=== PATIENT | male | born 1950 | race Caucasian/White ===

== ENCOUNTER 2018-12-18 20:59 | Inpatient (IN) | payer OTHER ==
[2018-12-18 20:59] VITALS: BMI 30.9
[2018-12-18] MEDS ORDERED: Sodium Chloride 0.9% 1,000 ML IV ONE ×2 (21:24→22:44)
--- NOTE | 2018-12-18 21:24 | C.PDOC ---
History Of Present Illness Patient presents with abdominal pain for the past 3 weeks which worsened today. He reports some radiating of the pain to the back but denies dysuria, fever or chills. Has not had a bm for about 5 days, but in am he had a large bm, brown in color and no noticeable blood Time Seen by Provider: 12/18/18 21:24 Chief Complaint (Nursing): Abdominal Pain History Per: Patient History/Exam Limitations: no limitations Onset/Duration Of Symptoms: Days (3 weeks) Current Symptoms Are (Timing): Worse Severity: Moderate Pain Scale Rating Of: 7 Location Of Pain/Discomfort: Diffuse Radiation Of Pain To:: Back Quality Of Discomfort: Unable To Describe Associated Symptoms: Constipation. denies: Fever, Chills, Other (Dysuria) Exacerbating Factors: None Alleviating Factors: None Last Bowel Movement: Today Recent travel outside of the [place]: No Additional History Per: Patient Past Medical History Reviewed: Historical Data, Nursing Documentation, Vital Signs Vital Signs: Last Vital Signs Temp 97.5 F L 12/18/18 21:04 Pulse 102 H 12/18/18 21:04 Resp 16 12/18/18 21:04 BP 148/85 12/18/18 21:04 Pulse Ox 97 12/18/18 21:04 - Medical History PMH: Diabetes, HTN, Hypercholesterolemia, Hypothyroidism Surgical History: Denies: Pacemaker Family History: States: No Known Family Hx - Social History Hx Alcohol Use: No Hx Substance Use: No - Immunization History Hx Tetanus Toxoid Vaccination: No Hx Influenza Vaccination: Yes Hx Pneumococcal Vaccination: No Review Of Systems Constitutional: Negative for: Fever, Chills Cardiovascular: Negative for: Chest Pain, Palpitations Respiratory: Negative for: Cough, Shortness of Breath Gastrointestinal: Positive for: Abdominal Pain. Negative for: Nausea, Vomiting Genitourinary: Negative for: Dysuria Skin: Negative for: Rash Neurological: Negative for: Weakness, Numbness Psych: Negative for: Anxiety Physical Exam - Physical Exam Appears: Non-toxic, Other (in moderate discomfort) Skin: Warm, Dry Head: Normacephalic Eye(s): bilateral: Normal Inspection Oral Mucosa: Moist Neck: Trachea Midline, Supple Chest: Symmetrical, No Tenderness Cardiovascular: Rhythm Regular Respiratory: No Rales, No Rhonchi, No Wheezing Gastrointestinal/Abdominal: Bowel Sounds (tympanic to percussion), Soft, Tenderness (Diffuse), Distention, No Guarding, No Rebound Back: No CVA Tenderness Extremity: Normal ROM Extremity: Bilateral: Atraumatic Pulses: Left Dorsalis Pedis: Normal, Right Dorsalis Pedis: Normal Neurological/Psych: Oriented x3 Gait: Steady ED Course And Treatment - Laboratory Results Result Diagrams: 12/18/18 21:51 12/18/18 21:51 ECG: Interpreted By Me, Viewed By Me ECG Rhythm: Sinus Rhythm (93), R BBB, Nonspecific Changes (inf wall mi) O2 Sat by Pulse Oximetry: 97 (Room air) Pulse Ox Interpretation: Normal Progress Note: EKG, blood work, and urinalysis ordered. IV fluids, toradol, and zofran administered. Disposition Discussed With Dr.: Tristan Williamson Comment: accepted the pt on his service and took over the care at 1:58 AM Doctor Will See Patient In The: Hospital Counseled Patient/Family Regarding: Studies Performed, Diagnosis - Disposition Disposition: HOSPITALIZED Disposition Time: 21:24 Condition: GUARDED Forms: [employer] (Yoruba) - POA Present On Arrival: Poor Glycemic Control - Clinical Impression Clinical Impression: Abdominal pain, Acute pancreatitis, Cholecystitis - Scribe Statement The provider has reviewed the documentation as recorded by the Scribe Long Bonilla All medical record entries made by the Scribe were at my direction and personally dictated by me. I have reviewed the chart and agree that the record accurately reflects my personal performance of the history, physical exam, medical decision making, and the department course for this patient. I have also personally directed, reviewed, and agree with the discharge instructions and disposition. Decision To Admit - Pt Status Changed To: Hospital Disposition Of: Inpatient - Admit Certification Admit to Inpatient:: After my assessment, the patient will require hospitalization for at least two midnights. This is because of the severity of symptoms shown, intensity of services needed, and/or the medical risk in this patient being treated as an outpatient. - InPatient: Physician Admission Certification:: After my assessment, the patient will require hospitalization for at least two midnights. This is because of the severity of symptoms shown, intensity of services needed, and/or the medical risk in this patient being treated as an outpatient. - . Bed Request Type: Regular Admitting Physician: Tristan Williamson Patient Diagnosis: Abdominal pain, Acute pancreatitis, Cholecystitis
[2018-12-18] MEDS ORDERED: Sodium Chloride 0.9% 1,000 ML ONE ×2 (21:32→23:27)
[2018-12-18 22:07] LABS: PROTHROMBIN TIME 13.1 SECONDS (9.7-12.2)
[2018-12-18 22:08] LABS: INR 1.2
[2018-12-18 22:22] LABS: BASO # 0.1 K/uL (0.0-0.2); BASO % 0.5 % (0.0-2.0); BLOOD UREA NITROGEN 13 mg/dL (9-20); EOS # 0.1 K/uL (0.0-0.7); EOS % 0.5 % (0.0-4.0); GFR NON-AFRICAN AMERICAN > 60; LYMPH # 0.8 K/uL (1.0-4.3); LYMPH % 5.1 % (20.0-40.0); MEAN CORPUSCULAR HEMOGLOBIN 15.6 pg (27.0-31.0); MEAN CORPUSCULAR HGB CONC 27.9 g/dL (33.0-37.0); MEAN PLATELET VOLUME 8.5 fL (7.2-11.7); MONO # 0.7 K/uL (0.0-0.8); MONO % 4.4 % (0.0-10.0); NEUT # 13.5 K/uL (1.8-7.0); NEUT % 89.5 % (50.0-75.0); NRBC % 0.1 % (0.0-2.0); RBC 4.48 Mil/uL (4.40-5.90); RED CELL DISTRIBUTION WIDTH 20.9 % (11.5-14.5)
[2018-12-18 22:23] LABS: ALB/GLOB RATIO 1.1 (1.0-2.1); ALBUMIN 3.6 g/dL (3.5-5.0); ALT/SGPT 201 U/L (21-72); AST/SGOT 284 U/L (17-59); CALCIUM 8.4 mg/dl (8.6-10.4); MEAN CELL VOLUME 55.8 fL (80.0-94.0); PLATELET COUNT 748 K/uL (130-400); WHITE BLOOD COUNT 15.1 K/uL (4.8-10.8)
[2018-12-18 22:38] LABS: URINE BILIRUBIN 1+ (NEGATIVE); URINE BLOOD NEGATIVE (NEGATIVE); URINE CLARITY Clear (Clear); URINE COLOR Amber (YELLOW); URINE GLUCOSE (UA) NORMAL (Normal); URINE LEUKOCYTE ESTERASE NEG Leu/uL (Negative); URINE PROTEIN 1+ mg/dL (NEGATIVE)
[2018-12-18 22:46] LABS: LIPASE 13720 U/L (23-300)
[2018-12-18 22:53] LABS: ANISOCYTOSIS MODERATE; EOSINOPHIL 1 % (0-4); LYMPHOCYTE 2 % (20-40); MONOCYTE 2 % (0-10); NEUTROPHIL 95 % (50-75); PLATELET ESTIMATE INCREASED (NORMAL); TOTAL CELLS COUNTED 100
[2018-12-18 22:54] LABS: HYPOCHROMIC MODERATE; MICROCYTOSIS MODERATE; OVALOCYTES SLIGHT; POLYCHROMIC SLIGHT
[2018-12-18] MEDS ORDERED: Piperacillin/Tazobact 3.375 gm 100 ML IVPB STA (23:51)
[2018-12-19] MEDS ORDERED: Piperacillin/Tazobact 3.375 gm 100 ML IVPB ONE (00:17)
[2018-12-19] MEDS: HYDROmorphone 0.5 mg/0.5 ml ISec IVP PRN ×2 (03:10→18:10)
[2018-12-19] MEDS: Lactated Ringer's 1,000 ML IV SCH ×2 (03:12→18:18)
[2018-12-19] MEDS: Piperacill/Tazo 3.375gm in Dex 3.375 GM/50 ML BAG IVPB SCH ×4 (06:03→23:55)
--- NOTE | 2018-12-19 07:54 | CP.PCM.PN ---
Subjective - Date & Time of Evaluation Date of Evaluation: 12/19/18 Time of Evaluation: 10:13 - Subjective Subjective: This patient is a 68 year old male with a PMHx of HLD, Diabetes, Diverticulosis, Hemorrhoids, GI Bleed, AVM, and hypothyroidism who presented to the E.R with complaints of 07/25 "punch-like" abdominal pain x 3 weeks which became unbeara ble yesterday. Patient denies using any modalities to treat the pain. CT scan of the Abdomen on admission showed cholecystitis and pancreatitis. Patient was then admitted for evaluation and treatment of cholecystitis and pancreatitis. Surgery and GI were consulted. Patient admitted to constipation for 3 weeks and finally had a bowel movement yesterday. He admitted to slight blood in the stool. ROS POSITIVES: Abdominal Pain, Constipation, Blood in Stool. NEGATIVES: Fever, chills, chest pain, SOB, headache, nausea, vomiting, diarrhea, urinary symptoms. PMHx: HLD, Diabetes, Diverticulosis, Hemorrhoids, GI Bleed, AVM, hypothyroidism PSHx: Colonoscopy (2014), Unspecified Head Surgery (I believe sutures of scalp laceration post fall) Allergies: NKDA SocialHx: denies tobacco. States he drinks 5 Heinek[employer] once a week, denies illi cit drug use. Retired (From [employer] employee) Hos: Denies FamHx: Mother/Brother - Alzhemiers Meds: per DEC. Objective - Vital Signs/Intake and Output Vital Signs (last 24 hours): Temp Pulse Resp BP Pulse Ox 98.7 F 93 H 20 121/70 95 12/19/18 07:40 12/19/18 07:40 12/19/18 07:40 12/19/18 07:40 12/19/18 07:40 Intake and Output: 12/19/18 12/19/18 06:59 18:59 Intake Total 800 Output Total 200 Balance 600 - Medications Medications: Current Medications Hydromorphone HCl (Dilaudid) 0.5 mg IVP Q3H PRN PRN Reason: Pain, moderate (4-7) Last Admin: 12/19/18 03:10 Dose: 0.5 mg Lactated Ringer's (Lactated Ringer's) 1,000 mls @ 200 mls/hr IV .Q5H KEVIN Last Admin: 12/19/18 03:12 Dose: 200 mls/hr Piperacillin Sod/Tazobactam Sod (Zosyn 3.375 Gm Iv Premix) 3.375 gm in 50 mls @ 100 mls/hr IVPB Q6H [facility]; Protocol Last Admin: 12/19/18 06:03 Dose: 100 mls/hr Ondansetron HCl (Zofran Inj) 4 mg IVP Q4H PRN PRN Reason: Nausea/Vomiting - Labs Labs: 12/18/18 21:51 12/18/18 21:51 PT 13.1 SECONDS (9.7-12.2) H 12/18/18 21:51 INR 1.2 12/18/18 21:51 APTT 33 SECONDS (21-34) 12/18/18 21:51 - Constitutional Appears: Well, Non-toxic, No Acute Distress - Head Exam Head Exam: ATRAUMATIC, NORMAL INSPECTION, NORMOCEPHALIC - Eye Exam Eye Exam: EOMI, Normal appearance. absent: Scleral icterus - ENT Exam ENT Exam: Mucous Membranes Dry - Neck Exam Neck Exam: absent: Lymphadenopathy - Respiratory Exam Respiratory Exam: Clear to Ausculation Bilateral. absent: Accessory Muscle Use Additional comments: Nasal [place]. - Cardiovascular Exam Cardiovascular Exam: RRR, +S1, +S2. absent: JVD - GI/Abdominal Exam GI & Abdominal Exam: Distended, Guarding, Tenderness (RUQ, Epigastric, Periumblical. Can't assess napier's sign due to pain. ), Hypoactive Bowel Sounds. absent: Mass, Rebound - Rectal Exam Rectal Exam: Hemorrhoids, NORMAL INSPECTION. absent: Black Stool, Bloody Stool Additional comments: +Tenderness during digital insertion, no palpable masses, Good rectal tone - Extremities Exam Extremities Exam: Normal Inspection. absent: Pedal Edema - Neurological Exam Neurological Exam: Alert, Awake, Oriented x3 - Skin Skin Exam: Dry, Intact, Normal Color, Warm Assessment and Plan - Assessment and Plan (Free Text) Assessment: 68 year old male with a PMHx of HLD, Diabetes, Diverticulosis, Hemorrhoids, and hypothyroidism admitted for evaluation and treatment of gallstone pancreatitis and acute cholecystitis. Plan: Gallstone Pancreatitis. Abd/Pelvis CT (Admission): shows pancreatitis and cholecystitis. PENDING Official Read. Abdomen US (Admission): Free Fluid in Liver, Fatty Liver, GB Stones and Sludge, Slightly dilated hepatic ducts, dilated CBD, Normal Kidneys/Spleen. Limited view of pancreas. PENDING Official Read. Lipase - 99492 on Admission, LFT's Elevated. Consults: GI (Dr. Mccann) | Surgery (Dr. Chaudhry) Lipid Panel: Ordered & PENDING Mgmt: NPO | LR @ 200 mls/hr Dilauded 0.5mg Q3H IVP Acute Cholecystitis Abd/Pelvis CT (Admission): shows pancreatitis and cholecystitis. PENDING Official Read. Abdomen US (Admission): Free Fluid in Liver, Fatty Liver, GB Stones and Sludge, Slightly dilated hepatic ducts, dilated CBD, Normal Kidneys/Spleen. Limited view of pancreas. PENDING Official Read. LFT's Elevated. Consults: Surgery (Dr. Chaudhry) MRCP of Abdomen Ordered to R/O Choledocholithiasis. Cannot be done until 24hours post CT scan due to the contrast. Mgmt: NPO | LR @ 200 mls/hr Zosyn 3.375 IVP Q6H Dilauded 0.5mg Q3H IVP Zofran PRN Iron Def. Anemia. Likely Iron Deficiency. HgB - 7.0 on Admission Has had GI Bleed in the past. Colonscopy (07/27/15) showed polyps and AVM in Ascending Colon which was treated. Anemia Workup SHows Low Iron and Elevated Haptoglobin. | Stool Occult Blood #1 - NEGATIVE. Monitor Mgmt: 2 Units of PRBC's ordered Ferrlicet 125mg IV Daily. Blood in Stool Likely 2/2 to Hemorrhoids. Stool Occult Blood NEGATIVE Will cont. to monitor HgB. Thrombocytosis Likely Reactive Thrombocytosis 2/2 to Iron Def. Anemia vs Cholecystitis Will Cont. to Monitor. Diabetes Hold Home Meds until patient is not NPO Will start ISS once patient is not NPO Hypothyroidism Mgmt: Home Synthroid 75mcg HLD Mgmt: Crestor 5 HS Proph VTE proph Contraindicated SCD's Protonix IV Daily Patient discussed with Attending (Dr. Oj Williamson) Milagros Agosto, PGY-2
--- NOTE | 2018-12-19 08:18 | CP.PCM.CON ---
<HolguinBrenda hanks - Last Filed: 12/19/18 08:15> History of Present Illness - History of Present Illness History of Present Illness: General Surgery- Dr Chaudhry 68yo M w/ hx of DM, HTN, HL, presenting with diffuse abdominal pain x several days. Pt states the pain began almost a week ago but has become progressively worse in the past 24hours. He describes it as severe diffuse abdominal pain, slightly more in the upper abdomen and radiating to the back. Pt states he has never had pain like this before. Nothing seemed to make the pain better or worse. He admits to poor appetite d/t the pain. He denies any associated nausea/vomiting/fevers/chills/sob/chest pains. PMH: DM, HTN, HL PSH: Denies NKDA Labs in the ED showed pt to have leukocytosis at 15.1, elevated lipase at 13,000 and elevated TBili at 2.1. Pt underwent CT abdomen/pelvis which showed both cholecystitis and pancreatitis. Surgery was consulted. Review of Systems - Review of Systems All systems: reviewed and no additional remarkable complaints except (as per HPI) Past Patient History - Infectious Disease Hx of Infectious Diseases: None - Past Medical History & Family History Past Medical History?: Yes - Past Social History Smoking Status: Never Smoked - CARDIAC Hx Hypercholesterolemia: Yes Hx Hypertension: Yes Hx Pacemaker: No - NEUROLOGICAL Hx Paralysis: No Other/Comment: HX TBI - ENDOCRINE/METABOLIC Hx Hypothyroidism: Yes - HEMATOLOGICAL/ONCOLOGICAL Hx Blood Transfusions: Yes Hx Blood Transfusion Reaction: No - MUSCULOSKELETAL/RHEUMATOLOGICAL Hx Musculoskeletal Disorders: No Hx Back Pain: Yes Hx Falls: Yes - PSYCHIATRIC Hx Substance Use: No - SURGICAL HISTORY Hx Surgeries: Yes Other/Comment: brain surgery - ANESTHESIA Hx Anesthesia: Yes Hx Anesthesia Reactions: No Hx Malignant Hyperthermia: No Meds Allergies/Adverse Reactions: Allergies Allergy/AdvReac Type Severity Reaction Status Date / Time No Known Allergies Allergy Verified 12/18/18 21:13 - Medications Medications: Current Medications Cyanocobalamin (Vitamin B12 1000 Mcg Tab) 1,000 mcg PO DAILY [facility]EVIN Ergocalciferol (Drisdol 50,000 Intl Units Cap) 1 cap PO QWK [facility]EVIN Hydromorphone HCl (Dilaudid) 0.5 mg IVP Q3H PRN PRN Reason: Pain, moderate (4-7) Last Admin: 12/19/18 03:10 Dose: 0.5 mg Lactated Ringer's (Lactated Ringer's) 1,000 mls @ 200 mls/hr IV .Q5H [facility] Last Admin: 12/19/18 03:12 Dose: 200 mls/hr Piperacillin Sod/Tazobactam Sod (Zosyn 3.375 Gm Iv Premix) 3.375 gm in 50 mls @ 100 mls/hr IVPB Q6H [facility]EVIN; Protocol Last Admin: 12/19/18 06:03 Dose: 100 mls/hr Levothyroxine Sodium (Synthroid) 75 mcg PO DAILY@0630 [facility] Ondansetron HCl (Zofran Inj) 4 mg IVP Q4H PRN PRN Reason: Nausea/Vomiting Rosuvastatin Calcium (Crestor) 5 mg PO HS KEVIN Physical Exam - Constitutional Appears: Well, No Acute Distress, Younger Than Stated Age - Head Exam Head Exam: ATRAUMATIC, NORMAL INSPECTION, NORMOCEPHALIC - Eye Exam Eye Exam: EOMI, Normal appearance - Respiratory Exam Respiratory Exam: NORMAL BREATHING PATTERN. absent: Respiratory Distress - Cardiovascular Exam Cardiovascular Exam: REGULAR RHYTHM - GI/Abdominal Exam GI & Abdominal Exam: Guarding, Rebound, Soft, Tenderness. absent: Distended, Firm Additional comments: exquisitely tender - Neurological Exam Neurological exam: Alert, Oriented x3 - Psychiatric Exam Psychiatric exam: Normal Affect, Normal Mood - Skin Skin Exam: Dry, Intact Results - Vital Signs Recent Vital Signs: Last Vital Signs Temp 98.7 F 12/19/18 07:40 Pulse 93 H 12/19/18 07:40 Resp 20 12/19/18 07:40 BP 121/70 12/19/18 07:40 Pulse Ox 95 12/19/18 07:40 - Labs Result Diagrams: 12/18/18 21:51 12/18/18 21:51 Labs: Laboratory Results - last 24 hr 12/18/18 12/18/18 12/18/18 21:51 21:51 21:51 WBC 15.1 H D RBC 4.48 Hgb 7.0 L D Hct 25.0 L MCV 55.8 L D MCH 15.6 L MCHC 27.9 L RDW 20.9 H Plt Count 748 H D MPV 8.5 Neut % (Auto) 89.5 H Lymph % (Auto) 5.1 L [place] % (Auto) 4.4 Eos % (Auto) 0.5 Baso % (Auto) 0.5 Neut # (Auto) 13.5 H Lymph # (Auto) 0.8 L [place] # (Auto) 0.7 Eos # (Auto) 0.1 Baso # (Auto) 0.1 Neutrophils % (Manual) 95 H Lymphocytes % (Manual) 2 L Monocytes % (Manual) 2 Eosinophils % (Manual) 1 Platelet Estimate Increased H Polychromasia Slight Hypochromasia (manual) Moderate Anisocytosis (manual) Moderate Microcytosis (manual) Moderate Ovalocytes Slight PT 13.1 H INR 1.2 APTT 33 Sodium 139 Potassium 4.1 Chloride 101 Carbon Dioxide 25 Anion Gap 17 BUN 13 Creatinine 0.6 L Est GFR ( Amer) > 60 Est GFR (Non-Af Amer) > 60 POC Glucose (mg/dL) Random Glucose 211 H Calcium 8.4 L Total Bilirubin 2.1 H AST 284 H ALT 201 H D Alkaline Phosphatase 377 H Total Protein 6.9 Albumin 3.6 Globulin 3.3 Albumin/Globulin Ratio 1.1 Lipase 30694 H Urine Color Urine Clarity Urine pH Ur Specific [place] Urine Protein Urine Glucose (UA) Urine Ketones Urine Blood Urine Nitrate Urine Bilirubin Urine Urobilinogen Ur Leukocyte Esterase Urine WBC (Auto) Urine RBC (Auto) Alcohol, Quantitative Blood Type Antibody Screen 12/18/18 12/18/18 12/18/18 22:23 22:28 23:39 WBC RBC Hgb Hct MCV MCH MCHC RDW Plt Count MPV Neut % (Auto) Lymph % (Auto) [place] % (Auto) Eos % (Auto) Baso % (Auto) Neut # (Auto) Lymph # (Auto) [place] # (Auto) Eos # (Auto) Baso # (Auto) Neutrophils % (Manual) Lymphocytes % (Manual) Monocytes % (Manual) Eosinophils % (Manual) Platelet Estimate Polychromasia Hypochromasia (manual) Anisocytosis (manual) Microcytosis (manual) Ovalocytes PT INR APTT Sodium Potassium Chloride Carbon Dioxide Anion Gap BUN Creatinine Est GFR ( Amer) Est GFR (Non-Af Amer) POC Glucose (mg/dL) Random Glucose Calcium Total Bilirubin AST ALT Alkaline Phosphatase Total Protein Albumin Globulin Albumin/Globulin Ratio Lipase Urine Color [place] Urine Clarity Clear Urine pH 5.0 Ur Specific [place] 1.017 Urine Protein 1+ H Urine Glucose (UA) Normal Urine Ketones Negative Urine Blood Negative Urine Nitrate Negative Urine Bilirubin 1+ H Urine Urobilinogen 4.0 Ur Leukocyte Esterase Neg Urine WBC (Auto) 4 Urine RBC (Auto) 1 Alcohol, Quantitative < 10 Blood Type A POSITIVE Antibody Screen Negative 12/19/18 07:51 WBC RBC Hgb Hct MCV MCH MCHC RDW Plt Count MPV Neut % (Auto) Lymph % (Auto) [place] % (Auto) Eos % (Auto) Baso % (Auto) Neut # (Auto) Lymph # (Auto) [place] # (Auto) Eos # (Auto) Baso # (Auto) Neutrophils % (Manual) Lymphocytes % (Manual) Monocytes % (Manual) Eosinophils % (Manual) Platelet Estimate Polychromasia Hypochromasia (manual) Anisocytosis (manual) Microcytosis (manual) Ovalocytes PT INR APTT Sodium Potassium Chloride Carbon Dioxide Anion Gap BUN Creatinine Est GFR ( Amer) Est GFR (Non-Af Amer) POC Glucose (mg/dL) 120 H Random Glucose Calcium Total Bilirubin AST ALT Alkaline Phosphatase Total Protein Albumin Globulin Albumin/Globulin Ratio Lipase Urine Color Urine Clarity Urine pH Ur Specific [place] Urine Protein Urine Glucose (UA) Urine Ketones Urine Blood Urine Nitrate Urine Bilirubin Urine Urobilinogen Ur Leukocyte Esterase Urine WBC (Auto) Urine RBC (Auto) Alcohol, Quantitative Blood Type Antibody Screen - Imaging and Cardiology CT scan - abdomen Status: Image reviewed by me, Report reviewed by me Assessment & Plan - Assessment and Plan (Free Text) Assessment: 68 yo M w/ acute pancreatitis and cholecystitis, likely gallstone pancreatitis -Maintain NPO for now -IVF @ 200/hr -IV Abx for cholecystitis - Zosyn -Pain control prn -Anti-emetics prn -Abdominal U/S to assess for stones and CBD DW Dr Isidoro Holguin PGY4 <Mark Chaudhyr - Last Filed: 12/23/18 20:38> Meds - Medications Medications: Current Medications Cyanocobalamin (Vitamin B12 1000 Mcg Tab) 1,000 mcg PO DAILY [facility] Last Admin: 12/23/18 09:56 Dose: 1,000 mcg Ergocalciferol (Drisdol 50,000 Intl Units Cap) 1 cap PO QWK [facility] Last Admin: 12/19/18 09:52 Dose: 1 cap Ferric Sodium Gluconate Complex (Ferrlecit) 125 mg IVPB DAILY [facility] Stop: 12/28/18 10:01 Last Admin: 12/23/18 09:56 Dose: 125 mg Hydromorphone HCl (Dilaudid) 0.5 mg IVP Q3H PRN PRN Reason: Pain, moderate (4-7) Last Admin: 12/23/18 10:04 Dose: 0.5 mg Piperacillin Sod/Tazobactam Sod (Zosyn 3.375 Gm Iv Premix) 3.375 gm in 50 mls @ 100 mls/hr IVPB Q6H [facility]; Protocol Last Admin: 12/23/18 17:46 Dose: 100 mls/hr Lactated Ringer's (Lactated Ringer's) 1,000 mls @ 150 mls/hr IV .Q6H40M [facility] Last Admin: 12/23/18 14:31 Dose: Not Given Levothyroxine Sodium (Synthroid) 75 mcg PO DAILY@0630 [facility] Last Admin: 12/23/18 06:38 Dose: 75 mcg Ondansetron HCl (Zofran Inj) 4 mg IVP Q4H PRN PRN Reason: Nausea/Vomiting Pantoprazole Sodium (Protonix Inj) 40 mg IVP DAILY [facility] Last Admin: 12/23/18 09:55 Dose: 40 mg Rosuvastatin Calcium (Crestor) 5 mg PO HS [facility] Last Admin: 12/19/18 21:50 Dose: Not Given Results - Vital Signs Recent Vital Signs: Last Vital Signs Temp 97.4 F L 12/23/18 16:00 Pulse 78 12/23/18 16:00 Resp 20 12/23/18 16:00 BP 137/79 12/23/18 16:00 Pulse Ox 94 L 12/23/18 16:00 - Labs Result Diagrams: 12/23/18 07:11 12/23/18 07:11 Labs: Laboratory Results - last 24 hr 12/22/18 12/23/18 12/23/18 21:21 06:25 07:03 WBC RBC Hgb Hct MCV MCH MCHC RDW Plt Count MPV Neut % (Auto) Lymph % (Auto) [place] % (Auto) Eos % (Auto) Baso % (Auto) Neut # (Auto) Lymph # (Auto) [place] # (Auto) Eos # (Auto) Baso # (Auto) Sodium Potassium Chloride Carbon Dioxide Anion Gap BUN Creatinine Est GFR ( Amer) Est GFR (Non-Af Amer) POC Glucose (mg/dL) 161 H 139 H Random Glucose Calcium Total Bilirubin AST ALT Alkaline Phosphatase Total Protein Albumin Globulin Albumin/Globulin Ratio Amylase Lipase Blood Type A POSITIVE Antibody Screen Negative 12/23/18 12/23/18 12/23/18 07:11 07:11 11:44 WBC 10.1 RBC 5.16 Hgb 9.5 L Hct 32.4 L MCV 62.8 L MCH 18.4 L MCHC 29.3 L RDW 29.4 H Plt Count 479 H MPV 8.5 Neut % (Auto) 78.0 H Lymph % (Auto) 11.0 L [place] % (Auto) 5.0 Eos % (Auto) 6.0 H Baso % (Auto) 0.0 Neut # (Auto) 7.8 H Lymph # (Auto) 1.1 [place] # (Auto) 0.5 Eos # (Auto) 0.6 Baso # (Auto) 0.0 Sodium 137 Potassium 4.7 Chloride 103 Carbon Dioxide 30 Anion Gap 10 BUN 3 L Creatinine 0.7 L Est GFR ( Amer) > 60 Est GFR (Non-Af Amer) > 60 POC Glucose (mg/dL) 215 H Random Glucose 129 H D Calcium 8.6 Total Bilirubin 3.0 H AST 125 H D ALT 96 H Alkaline Phosphatase 444 H D Total Protein 6.6 Albumin 3.3 L Globulin 3.3 Albumin/Globulin Ratio 1.0 Amylase 585 H D Lipase 9048 H Blood Type Antibody Screen 12/23/18 16:28 WBC RBC Hgb Hct MCV MCH MCHC RDW Plt Count MPV Neut % (Auto) Lymph % (Auto) [place] % (Auto) Eos % (Auto) Baso % (Auto) Neut # (Auto) Lymph # (Auto) [place] # (Auto) Eos # (Auto) Baso # (Auto) Sodium Potassium Chloride Carbon Dioxide Anion Gap BUN Creatinine Est GFR ( Amer) Est GFR (Non-Af Amer) POC Glucose (mg/dL) 138 H Random Glucose Calcium Total Bilirubin AST ALT Alkaline Phosphatase Total Protein Albumin Globulin Albumin/Globulin Ratio Amylase Lipase Blood Type Antibody Screen Attending/Attestation - Attestation I have personally seen and examined this patient.: Yes I have fully participated in the care of the patient.: Yes I have reviewed all pertinent clinical information: Yes Notes (Text): Pt was seen and examine at bedside Agree with above note and assessment Pt with abdominal pain and distention Abdomen: Soft, Tender diffusely, Mild distention. Labs and Radiology reviewed Ass: GS Pancreatitis with severe abdominal Pain Plan : GI consult IV antibiotics IV morphine NPO, IVF Repeat labs in am Plan d.w pt in detail Risk and benefit explained in detail.
[2018-12-19] MEDS: Levothyroxine 75 MCG TAB PO SCH (09:52)
[2018-12-19] MEDS: Ergocalciferol 50,000 Intl Units Cap PO SCH (09:52)
--- NOTE | 2018-12-19 11:37 | CP.PCM.CON ---
<Agustin Alcazar - Last Filed: 12/19/18 11:38> History of Present Illness - History of Present Illness History of Present Illness: PGY6 GI Fellow Consult Note Patient is a 68yo male with PMHx significant for dyslipidemia, diabetes who presented to the ED with abdominal pain. Pain began approximately 3 weeks ago and was cramping in nature at that time. He attributed pain to ongoing constipation which lasted for >1 week with intermittent passage of small amounts of stool. In the last 3-4 days, pain intensified and was located mainly in the epigastrium and RUQ. He did not take any medication to alleviate symptoms and noted that oral intake seemed to worsen symptoms. Admits to decreased appetite over the last week. Denies any nausea, vomiting, weight loss, diarrhea, hematochezia, melena. 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) FHx: Discussed with patient and denies any significant family history Social: Denies tobacco, EtOH or illicit drug use Endo: 07/2015 - Colonoscopy - AVM ascending colon s/p APC, diverticulosis, descending colon tubular adenoma, internal hemorrhoids Past Patient History - Infectious Disease Hx of Infectious Diseases: None - Past Medical History & Family History Past Medical History?: Yes - Past Social History Smoking Status: Never Smoked - CARDIAC Hx Hypercholesterolemia: Yes Hx Hypertension: Yes Hx Pacemaker: No - NEUROLOGICAL Hx Paralysis: No Other/Comment: HX TBI - ENDOCRINE/METABOLIC Hx Hypothyroidism: Yes - HEMATOLOGICAL/ONCOLOGICAL Hx Blood Transfusions: Yes Hx Blood Transfusion Reaction: No - MUSCULOSKELETAL/RHEUMATOLOGICAL Hx Musculoskeletal Disorders: No Hx Back Pain: Yes Hx Falls: Yes - PSYCHIATRIC Hx Substance Use: No - SURGICAL HISTORY Hx Surgeries: Yes Other/Comment: brain surgery - ANESTHESIA Hx Anesthesia: Yes Hx Anesthesia Reactions: No Hx Malignant Hyperthermia: No Meds Allergies/Adverse Reactions: Allergies Allergy/AdvReac Type Severity Reaction Status Date / Time No Known Allergies Allergy Verified 12/18/18 21:13 - Medications Medications: Current Medications Cyanocobalamin (Vitamin B12 1000 Mcg Tab) 1,000 mcg PO DAILY [facility] Last Admin: 12/19/18 09:57 Dose: 1,000 mcg Ergocalciferol (Drisdol 50,000 Intl Units Cap) 1 cap PO QWK KEVIN Last Admin: 12/19/18 09:52 Dose: 1 cap Hydromorphone HCl (Dilaudid) 0.5 mg IVP Q3H PRN PRN Reason: Pain, moderate (4-7) Last Admin: 12/19/18 03:10 Dose: 0.5 mg Lactated Ringer's (Lactated Ringer's) 1,000 mls @ 200 mls/hr IV .Q5H KEVIN Last Admin: 12/19/18 03:12 Dose: 200 mls/hr Piperacillin Sod/Tazobactam Sod (Zosyn 3.375 Gm Iv Premix) 3.375 gm in 50 mls @ 100 mls/hr IVPB Q6H KEVIN; Protocol Last Admin: 12/19/18 06:03 Dose: 100 mls/hr Levothyroxine Sodium (Synthroid) 75 mcg PO DAILY@0630 [facility]EVIN Last Admin: 12/19/18 09:52 Dose: 75 mcg Ondansetron HCl (Zofran Inj) 4 mg IVP Q4H PRN PRN Reason: Nausea/Vomiting Rosuvastatin Calcium (Crestor) 5 mg PO HS [facility] Physical Exam - Constitutional Appears: Non-toxic, No Acute Distress - Eye Exam Eye Exam: EOMI, PERRL - ENT Exam ENT Exam: Mucous Membranes Moist - Respiratory Exam Respiratory Exam: Clear to Auscultation Bilateral. absent: Rales, Rhonchi, Wheezes - Cardiovascular Exam Cardiovascular Exam: RRR, +S1, +S2 - GI/Abdominal Exam GI & Abdominal Exam: Distended, Normal Bowel Sounds, Soft, Tenderness (diffusely, worst in RUQ). absent: Firm, Guarding, Hernia, Mass, Organomegaly, Rigid - Extremities Exam Extremities exam: Positive for: normal inspection. Negative for: pedal edema - Neurological Exam Neurological exam: Alert, Oriented x3 - Psychiatric Exam Psychiatric exam: Normal Affect, Normal Mood - Skin Skin Exam: Dry, Warm Results - Vital Signs Recent Vital Signs: Last Vital Signs Temp 98.7 F 12/19/18 07:40 Pulse 93 H 12/19/18 07:40 Resp 20 12/19/18 07:40 BP 121/70 12/19/18 07:40 Pulse Ox 95 12/19/18 07:40 - Labs Result Diagrams: 12/18/18 21:51 12/18/18 21:51 Labs: Laboratory Results - last 24 hr 12/18/18 12/18/18 12/18/18 21:51 21:51 21:51 WBC 15.1 H D RBC 4.48 Hgb 7.0 L D Hct 25.0 L MCV 55.8 L D MCH 15.6 L MCHC 27.9 L RDW 20.9 H Plt Count 748 H D MPV 8.5 Neut % (Auto) 89.5 H Lymph % (Auto) 5.1 L [place] % (Auto) 4.4 Eos % (Auto) 0.5 Baso % (Auto) 0.5 Neut # (Auto) 13.5 H Lymph # (Auto) 0.8 L [place] # (Auto) 0.7 Eos # (Auto) 0.1 Baso # (Auto) 0.1 Neutrophils % (Manual) 95 H Lymphocytes % (Manual) 2 L Monocytes % (Manual) 2 Eosinophils % (Manual) 1 Platelet Estimate Increased H Polychromasia Slight Hypochromasia (manual) Moderate Anisocytosis (manual) Moderate Microcytosis (manual) Moderate Ovalocytes Slight PT 13.1 H INR 1.2 APTT 33 Sodium 139 Potassium 4.1 Chloride 101 Carbon Dioxide 25 Anion Gap 17 BUN 13 Creatinine 0.6 L Est GFR ( Amer) > 60 Est GFR (Non-Af Amer) > 60 POC Glucose (mg/dL) Random Glucose 211 H Calcium 8.4 L Total Bilirubin 2.1 H AST 284 H ALT 201 H D Alkaline Phosphatase 377 H Total Protein 6.9 Albumin 3.6 Globulin 3.3 Albumin/Globulin Ratio 1.1 Lipase 44623 H Urine Color Urine Clarity Urine pH Ur Specific [place] Urine Protein Urine Glucose (UA) Urine Ketones Urine Blood Urine Nitrate Urine Bilirubin Urine Urobilinogen Ur Leukocyte Esterase Urine WBC (Auto) Urine RBC (Auto) Alcohol, Quantitative Blood Type Blood Type Confirm Antibody Screen 12/18/18 12/18/18 12/18/18 22:23 22:28 23:39 WBC RBC Hgb Hct MCV MCH MCHC RDW Plt Count MPV Neut % (Auto) Lymph % (Auto) [place] % (Auto) Eos % (Auto) Baso % (Auto) Neut # (Auto) Lymph # (Auto) [place] # (Auto) Eos # (Auto) Baso # (Auto) Neutrophils % (Manual) Lymphocytes % (Manual) Monocytes % (Manual) Eosinophils % (Manual) Platelet Estimate Polychromasia Hypochromasia (manual) Anisocytosis (manual) Microcytosis (manual) Ovalocytes PT INR APTT Sodium Potassium Chloride Carbon Dioxide Anion Gap BUN Creatinine Est GFR ( Amer) Est GFR (Non-Af Amer) POC Glucose (mg/dL) Random Glucose Calcium Total Bilirubin AST ALT Alkaline Phosphatase Total Protein Albumin Globulin Albumin/Globulin Ratio Lipase Urine Color [place] Urine Clarity Clear Urine pH 5.0 Ur Specific [place] 1.017 Urine Protein 1+ H Urine Glucose (UA) Normal Urine Ketones Negative Urine Blood Negative Urine Nitrate Negative Urine Bilirubin 1+ H Urine Urobilinogen 4.0 Ur Leukocyte Esterase Neg Urine WBC (Auto) 4 Urine RBC (Auto) 1 Alcohol, Quantitative < 10 Blood Type A POSITIVE Blood Type Confirm A POSITIVE Antibody Screen Negative 12/19/18 12/19/18 07:51 10:53 WBC RBC Hgb Hct MCV MCH MCHC RDW Plt Count MPV Neut % (Auto) Lymph % (Auto) [place] % (Auto) Eos % (Auto) Baso % (Auto) Neut # (Auto) Lymph # (Auto) [place] # (Auto) Eos # (Auto) Baso # (Auto) Neutrophils % (Manual) Lymphocytes % (Manual) Monocytes % (Manual) Eosinophils % (Manual) Platelet Estimate Polychromasia Hypochromasia (manual) Anisocytosis (manual) Microcytosis (manual) Ovalocytes PT INR APTT Sodium Potassium Chloride Carbon Dioxide Anion Gap BUN Creatinine Est GFR ( Amer) Est GFR (Non-Af Amer) POC Glucose (mg/dL) 120 H 127 H Random Glucose Calcium Total Bilirubin AST ALT Alkaline Phosphatase Total Protein Albumin Globulin Albumin/Globulin Ratio Lipase Urine Color Urine Clarity Urine pH Ur Specific [place] Urine Protein Urine Glucose (UA) Urine Ketones Urine Blood Urine Nitrate Urine Bilirubin Urine Urobilinogen Ur Leukocyte Esterase Urine WBC (Auto) Urine RBC (Auto) Alcohol, Quantitative Blood Type Blood Type Confirm Antibody Screen Assessment & Plan - Assessment and Plan (Free Text) Assessment: Patient is a 68yo male with PMHx significant for dyslipidemia, diabetes who presented to the ED with abdominal pain -Acute cholecystitis -Acute gallstone pancreatitis -Cholelithiasis, R/O choledocolithiasis -Microcytic anemia -Constipation Plan: -IVF with LR@150-200cc/hr -OK with liquid diet once pain improves and patient can tolerate PO -U/S and CT reviewed - awaiting formal interpretation - appears to have gallstones, pericholecystic fluid, peripancreatic stranding -MRCP ordered by surgical team - R/O choledocolithiasis -Check direct bilirubin -If present, will benefit from ERCP -Patient would benefit from cholecystectomy, surgical team following -Agree with empiric zosyn -Microcytic anemia noted - no overt bleeding per patient or noted since admission; iron studies ordered -Given change in bowel habits, microcytic anemia and history of AVM; consider EGD/Colonoscopy once medically optimized, likely as outpatient following resolution of acute events; no evidence for mass lesions on cross-sectional imaging - Date & Time Date: 12/19/18 Time: 10:45 <Hoang Mccann - Last Filed: 12/19/18 12:26> Meds - Medications Medications: Current Medications Cyanocobalamin (Vitamin B12 1000 Mcg Tab) 1,000 mcg PO DAILY [facility] Last Admin: 12/19/18 09:57 Dose: 1,000 mcg Ergocalciferol (Drisdol 50,000 Intl Units Cap) 1 cap PO QWK [facility] Last Admin: 12/19/18 09:52 Dose: 1 cap Hydromorphone HCl (Dilaudid) 0.5 mg IVP Q3H PRN PRN Reason: Pain, moderate (4-7) Last Admin: 12/19/18 03:10 Dose: 0.5 mg Lactated Ringer's (Lactated Ringer's) 1,000 mls @ 200 mls/hr IV .Q5H [facility] Last Admin: 12/19/18 03:12 Dose: 200 mls/hr Piperacillin Sod/Tazobactam Sod (Zosyn 3.375 Gm Iv Premix) 3.375 gm in 50 mls @ 100 mls/hr IVPB Q6H [facility]; Protocol Last Admin: 12/19/18 12:10 Dose: 100 mls/hr Levothyroxine Sodium (Synthroid) 75 mcg PO DAILY@0630 [facility] Last Admin: 12/19/18 09:52 Dose: 75 mcg Ondansetron HCl (Zofran Inj) 4 mg IVP Q4H PRN PRN Reason: Nausea/Vomiting Rosuvastatin Calcium (Crestor) 5 mg PO HS [facility] Results - Vital Signs Recent Vital Signs: Last Vital Signs Temp 98.7 F 12/19/18 07:40 Pulse 93 H 12/19/18 07:40 Resp 20 12/19/18 07:40 BP 121/70 12/19/18 07:40 Pulse Ox 95 12/19/18 07:40 - Labs Result Diagrams: 12/19/18 11:46 12/18/18 21:51 Labs: Laboratory Results - last 24 hr 12/18/18 12/18/18 12/18/18 21:51 21:51 21:51 WBC 15.1 H D RBC 4.48 Hgb 7.0 L D Hct 25.0 L MCV 55.8 L D MCH 15.6 L MCHC 27.9 L RDW 20.9 H Plt Count 748 H D MPV 8.5 Neut % (Auto) 89.5 H Lymph % (Auto) 5.1 L [place] % (Auto) 4.4 Eos % (Auto) 0.5 Baso % (Auto) 0.5 Neut # (Auto) 13.5 H Lymph # (Auto) 0.8 L [place] # (Auto) 0.7 Eos # (Auto) 0.1 Baso # (Auto) 0.1 Neutrophils % (Manual) 95 H Lymphocytes % (Manual) 2 L Monocytes % (Manual) 2 Eosinophils % (Manual) 1 Platelet Estimate Increased H Polychromasia Slight Hypochromasia (manual) Moderate Anisocytosis (manual) Moderate Microcytosis (manual) Moderate Ovalocytes Slight PT 13.1 H INR 1.2 APTT 33 Sodium 139 Potassium 4.1 Chloride 101 Carbon Dioxide 25 Anion Gap 17 BUN 13 Creatinine 0.6 L Est GFR ( Amer) > 60 Est GFR (Non-Af Amer) > 60 POC Glucose (mg/dL) Random Glucose 211 H Calcium 8.4 L Total Bilirubin 2.1 H AST 284 H ALT 201 H D Alkaline Phosphatase 377 H Total Protein 6.9 Albumin 3.6 Globulin 3.3 Albumin/Globulin Ratio 1.1 Lipase 34451 H Urine Color Urine Clarity Urine pH Ur Specific [place] Urine Protein Urine Glucose (UA) Urine Ketones Urine Blood Urine Nitrate Urine Bilirubin Urine Urobilinogen Ur Leukocyte Esterase Urine WBC (Auto) Urine RBC (Auto) Alcohol, Quantitative Blood Type Blood Type Confirm Antibody Screen 12/18/18 12/18/18 12/18/18 22:23 22:28 23:39 WBC RBC Hgb Hct MCV MCH MCHC RDW Plt Count MPV Neut % (Auto) Lymph % (Auto) [place] % (Auto) Eos % (Auto) Baso % (Auto) Neut # (Auto) Lymph # (Auto) [place] # (Auto) Eos # (Auto) Baso # (Auto) Neutrophils % (Manual) Lymphocytes % (Manual) Monocytes % (Manual) Eosinophils % (Manual) Platelet Estimate Polychromasia Hypochromasia (manual) Anisocytosis (manual) Microcytosis (manual) Ovalocytes PT INR APTT Sodium Potassium Chloride Carbon Dioxide Anion Gap BUN Creatinine Est GFR ( Amer) Est GFR (Non-Af Amer) POC Glucose (mg/dL) Random Glucose Calcium Total Bilirubin AST ALT Alkaline Phosphatase Total Protein Albumin Globulin Albumin/Globulin Ratio Lipase Urine Color [place] Urine Clarity Clear Urine pH 5.0 Ur Specific [place] 1.017 Urine Protein 1+ H Urine Glucose (UA) Normal Urine Ketones Negative Urine Blood Negative Urine Nitrate Negative Urine Bilirubin 1+ H Urine Urobilinogen 4.0 Ur Leukocyte Esterase Neg Urine WBC (Auto) 4 Urine RBC (Auto) 1 Alcohol, Quantitative < 10 Blood Type A POSITIVE Blood Type Confirm A POSITIVE Antibody Screen Negative 12/19/18 12/19/18 12/19/18 07:51 10:53 11:46 WBC 10.0 RBC 4.17 L Hgb 6.5 L* Hct 23.4 L MCV 56.1 L MCH 15.7 L MCHC 27.9 L RDW 21.1 H Plt Count 703 H MPV 6.6 L Neut % (Auto) 85.6 H Lymph % (Auto) 6.1 L [place] % (Auto) 4.1 Eos % (Auto) 3.3 Baso % (Auto) 0.9 Neut # (Auto) 8.5 H Lymph # (Auto) 0.6 L [place] # (Auto) 0.4 Eos # (Auto) 0.3 Baso # (Auto) 0.1 Neutrophils % (Manual) Lymphocytes % (Manual) Monocytes % (Manual) Eosinophils % (Manual) Platelet Estimate Polychromasia Hypochromasia (manual) Anisocytosis (manual) Microcytosis (manual) Ovalocytes PT INR APTT Sodium Potassium Chloride Carbon Dioxide Anion Gap BUN Creatinine Est GFR ( Amer) Est GFR (Non-Af Amer) POC Glucose (mg/dL) 120 H 127 H Random Glucose Calcium Total Bilirubin AST ALT Alkaline Phosphatase Total Protein Albumin Globulin Albumin/Globulin Ratio Lipase Urine Color Urine Clarity Urine pH Ur Specific [place] Urine Protein Urine Glucose (UA) Urine Ketones Urine Blood Urine Nitrate Urine Bilirubin Urine Urobilinogen Ur Leukocyte Esterase Urine WBC (Auto) Urine RBC (Auto) Alcohol, Quantitative Blood Type Blood Type Confirm Antibody Screen Attending/Attestation - Attestation I have personally seen and examined this patient.: Yes I have fully participated in the care of the patient.: Yes I have reviewed all pertinent clinical information: Yes Notes (Text): 12/19/18 12:21 I have seen and examined patient with GI fellow. Agree with above documentation with the following additions. In brief, this is a 68 year old male with history of DM, hyperlipidemia, traumatic brain injury, who presents to hospital with complaint of abdominal pain. He reports epigastric pain, 5/10 intensity which began 3 weeks ago and slowly became worse and now radiates to RUQ and back. He also reports chronic constipation but denies nausea, vomiting, fever/chills, weight loss, rectal bleeding. He had a colonoscopy in 2014 which showed diverti cuosis, adenomatous polyp, AVM, hemorrhoids. DM Hyperlipidemia TBI Abdominal pain Anemia Transaminitis, pancreatitis CT/US imaging reviewed by me showing dilated intra/extrahepatic tree, cholelithiasis, thickened GB wall, pancreatic head edema - NPO - Continue with IVF hydration therapy - Continue with antibiotic therapy - MRCP ordered by surgical team, follow up results - Fractionate bilirubin and continue to monitor LFTs - Obtain viral hepatitis panel - Obtain iron studies, continue to monitor H/H - Will continue to monitor patient clinical course
--- NOTE | 2018-12-19 11:51 | RAD ---
Date of service: 12/19/2018 HISTORY: SOB/Pre-Op COMPARISON: No prior. FINDINGS: LUNGS: There are low lung volumes. There is mild pulmonary venous congestion. No focal consolidation. PLEURA: No pleural effusions or pneumothorax. CARDIOVASCULAR: There is moderate cardiomegaly. There are aortic atherosclerotic calcifications present. OSSEOUS STRUCTURES: Within normal limits for the patient's age. VISUALIZED UPPER ABDOMEN: Normal. OTHER FINDINGS: None. IMPRESSION: No active pulmonary disease. Low lung volumes may be related to poor inspiratory effort.
[2018-12-19 12:01] LABS: BASO # 0.1 K/uL (0.0-0.2); BASO % 0.9 % (0.0-2.0); EOS # 0.3 K/uL (0.0-0.7); EOS % 3.3 % (0.0-4.0); LYMPH # 0.6 K/uL (1.0-4.3); LYMPH % 6.1 % (20.0-40.0); MEAN CELL VOLUME 56.1 fL (80.0-94.0); MEAN CORPUSCULAR HEMOGLOBIN 15.7 pg (27.0-31.0); MEAN CORPUSCULAR HGB CONC 27.9 g/dL (33.0-37.0); MEAN PLATELET VOLUME 6.6 fL (7.2-11.7); MONO # 0.4 K/uL (0.0-0.8); MONO % 4.1 % (0.0-10.0); NEUT # 8.5 K/uL (1.8-7.0); NEUT % 85.6 % (50.0-75.0); NRBC % 0.2 % (0.0-2.0); PLATELET COUNT 703 K/uL (130-400); RBC 4.17 Mil/uL (4.40-5.90); RED CELL DISTRIBUTION WIDTH 21.1 % (11.5-14.5)
[2018-12-19 12:05] LABS: HEMOGLOBIN 6.5 g/dL (12.0-18.0)
--- NOTE | 2018-12-19 12:10 | CT ---
Date of service: 12/19/2018 PROCEDURE: CT Abdomen and Pelvis with contrast HISTORY: diffuse abd pain COMPARISON: None available. TECHNIQUE: Contrast dose: 100 mL Omnipaque 350 Radiation dose: Total exam DLP = 1148.93 mGy-cm. This CT exam was performed using one or more of the following dose reduction techniques: Automated exposure control, adjustment of the mA and/or kV according to patient size, and/or use of iterative reconstruction technique. FINDINGS: LOWER THORAX: Bibasilar atelectasis/infiltrates. No visible pleural effusion or definite pneumothorax. Mild cardiomegaly. LIVER: Hypoattenuation of the liver compatible with hepatic steatosis. Borderline hepatomegaly. GALLBLADDER AND BILE DUCTS: Gallbladder wall thickening/pericholecystic edema. Gallbladder distension. No calcified gallstones appreciated. Mild wall prominence/enhancement of the biliary tree. PANCREAS: Suspect mild pancreatic edema. Mild mesenteric/peripancreatic edema and stranding. SPLEEN: 13 mm splenic hypodensity, anterior inferior spleen, indeterminate. Small perisplenic fluid. ADRENALS: Unremarkable. KIDNEYS AND URETERS: The kidneys enhance symmetrically. No hydronephrosis or obstructing calculus identified. VASCULATURE: No aortic aneurysm. Atherosclerotic calcifications of the aorta. BOWEL: Stomach is nondistended. Lack of oral contrast limits evaluation for bowel pathology. Bowel loops appear within normal limits of caliber without evidence of obstruction. APPENDIX: The appendix appears within normal limits of caliber. No secondary signs of acute appendicitis. PERITONEUM: No significant free fluid. No definite free air. LYMPH NODES: No bulky adenopathy identified. BLADDER: Unremarkable. REPRODUCTIVE: The prostate gland measures approximately 4.2 x 4.9 cm. BONES: Degenerative changes of the spine. OTHER FINDINGS: Bilateral fat containing inguinal hernias. IMPRESSION: Gallbladder wall thickening/pericholecystic edema. Gallbladder distension. No calcified gallstones appreciated. Mild wall prominence/enhancement of the biliary tree. Correlate clinically for acute cholecystitis and/or cholangitis versus reactive edema. Suspect pancreatic edema. Pancreatic/mesenteric edema noted. Correlate for acute pancreatitis including amylase and lipase levels. 13 mm splenic hypodensity, anterior inferior spleen, indeterminate. Small perisplenic fluid. Borderline hepatomegaly. Hepatic steatosis. Bibasilar atelectasis/infiltrates. Additional findings as above. Preliminary impression was provided by [employer].
[2018-12-19 12:31] LABS: IRON 14 ug/dL (49-181)
[2018-12-19 12:38] LABS: BILIRUBIN,DIRECT 1.2 mg/dL (0.0-0.4)
[2018-12-19 12:41] LABS: % IRON SATURATION 4 (20-55); TOTAL IRON BINDING CAPACITY 324 ug/dL (250-450)
[2018-12-19 12:44] LABS: ALBUMIN 3.3 g/dL (3.5-5.0); ALT/SGPT 262 U/L (21-72); AST/SGOT 297 U/L (17-59); BLOOD UREA NITROGEN 9 mg/dL (9-20); CALCIUM 8.2 mg/dl (8.6-10.4); GFR NON-AFRICAN AMERICAN > 60; HDL CHOLESTEROL 19 mg/dL (30-70)
[2018-12-19 12:56] LABS: LDL CHOLESTEROL 54 mg/dL (0-129)
--- NOTE | 2018-12-19 13:03 | US ---
Date of service: 12/19/2018 HISTORY: r/o choledocholithiasis, cholecystitis COMPARISON: None. TECHNIQUE: Sonographic evaluation of the abdomen. FINDINGS: LIVER: Measures 17.1 cm. Diffusely increased echogenicity of the liver parenchyma. Consistent with fatty infiltration. Smooth contour. No mass. No biliary ductal dilatation. GALLBLADDER: Cholelithiasis. Sludge. No significant mural thickening. No pericholecystic fluid. Negative sonographic Bower sign. COMMON BILE DUCT: Measures 7 mm. No stones. No dilatation. PANCREAS: Unremarkable as visualized. No mass. No ductal dilatation. RIGHT KIDNEY: Measures 11.6cm. Normal echogenicity. No calculus, mass, or hydronephrosis. LEFT KIDNEY: Measures 11.4cm. Normal echogenicity. No calculus, mass, or hydronephrosis. SPLEEN: Normal in size and contour. No mass. AORTA: No aneurysmal dilatation. IVC: Unremarkable. OTHER FINDINGS: None. IMPRESSION: Cholelithiasis. No clear sonographic evidence of cholecystitis. Fatty infiltration of the liver. Minimal dilatation of the common bile duct without associated intrahepatic biliary dilatation.
[2018-12-19 13:16] LABS: ANISOCYTOSIS MODERATE; BANDS 1 % (0-2); BASOPHIL 1 % (0-2); EOSINOPHIL 5 % (0-4); HYPOCHROMIC MODERATE; LYMPHOCYTE 6 % (20-40); MONOCYTE 3 % (0-10); NEUTROPHIL 84 % (50-75); OVALOCYTES MODERATE; PLATELET ESTIMATE INCREASED (NORMAL); POIKILOCYTOSIS SLIGHT; TOTAL CELLS COUNTED 100
[2018-12-19 13:17] LABS: MICROCYTOSIS MODERATE
[2018-12-19 13:21] LABS: FERRITIN 17.4 ng/mL
[2018-12-19 13:50] LABS: FOLATE 17.5 ng/mL
--- NOTE | 2018-12-19 18:55 | CP.PCM.HP ---
Past Patient History - Infectious Disease Hx of Infectious Diseases: None - Past Medical History & Family History Past Medical History?: Yes - Past Social History Smoking Status: Never Smoked - CARDIAC Hx Hypercholesterolemia: Yes Hx Hypertension: Yes Hx Pacemaker: No - NEUROLOGICAL Hx Paralysis: No Other/Comment: HX TBI - ENDOCRINE/METABOLIC Hx Hypothyroidism: Yes - HEMATOLOGICAL/ONCOLOGICAL Hx Blood Transfusions: Yes Hx Blood Transfusion Reaction: No - MUSCULOSKELETAL/RHEUMATOLOGICAL Hx Musculoskeletal Disorders: No Hx Back Pain: Yes Hx Falls: Yes - PSYCHIATRIC Hx Substance Use: No - SURGICAL HISTORY Hx Surgeries: Yes Other/Comment: brain surgery - ANESTHESIA Hx Anesthesia: Yes Hx Anesthesia Reactions: No Hx Malignant Hyperthermia: No Meds Allergies/Adverse Reactions: Allergies Allergy/AdvReac Type Severity Reaction Status Date / Time No Known Allergies Allergy Verified 12/18/18 21:13 Physical Exam - Constitutional Appears: Well - Head Exam Head Exam: ATRAUMATIC, NORMAL INSPECTION, NORMOCEPHALIC - Eye Exam Eye Exam: EOMI, Normal appearance, PERRL Pupil Exam: NORMAL ACCOMODATION, PERRL - ENT Exam ENT Exam: Mucous Membranes Moist, Normal Exam - Neck Exam Neck exam: Positive for: Normal Inspection - Respiratory Exam Respiratory Exam: Decreased Breath Sounds - Cardiovascular Exam Cardiovascular Exam: REGULAR RHYTHM, +S1, +S2 - GI/Abdominal Exam GI & Abdominal Exam: Diminished Bowel Sounds, Soft - Rectal Exam Rectal Exam: Deferred Results - Vital Signs Recent Vital Signs: Last Vital Signs Temp 99.4 F 12/19/18 17:19 Pulse 89 12/19/18 17:19 Resp 18 12/19/18 17:19 BP 116/69 12/19/18 17:19 Pulse Ox 96 12/19/18 16:00 - Labs Result Diagrams: 12/19/18 11:46 12/19/18 11:46 Labs: Laboratory Results - last 24 hr 12/18/18 12/18/18 12/18/18 21:51 21:51 21:51 WBC 15.1 H D RBC 4.48 Hgb 7.0 L D Hct 25.0 L MCV 55.8 L D MCH 15.6 L MCHC 27.9 L RDW 20.9 H Plt Count 748 H D MPV 8.5 Neut % (Auto) 89.5 H Lymph % (Auto) 5.1 L [place] % (Auto) 4.4 Eos % (Auto) 0.5 Baso % (Auto) 0.5 Neut # (Auto) 13.5 H Lymph # (Auto) 0.8 L [place] # (Auto) 0.7 Eos # (Auto) 0.1 Baso # (Auto) 0.1 Neutrophils % (Manual) 95 H Band Neutrophils % Lymphocytes % (Manual) 2 L Monocytes % (Manual) 2 Eosinophils % (Manual) 1 Basophils % (Manual) Platelet Estimate Increased H Polychromasia Slight Hypochromasia (manual) Moderate Poikilocytosis (manual Anisocytosis (manual) Moderate Microcytosis (manual) Moderate Ovalocytes Slight Haptoglobin PT 13.1 H INR 1.2 APTT 33 Sodium 139 Potassium 4.1 Chloride 101 Carbon Dioxide 25 Anion Gap 17 BUN 13 Creatinine 0.6 L Est GFR ( Amer) > 60 Est GFR (Non-Af Amer) > 60 POC Glucose (mg/dL) Random Glucose 211 H Calcium 8.4 L Phosphorus Magnesium Iron TIBC % Saturation Ferritin Total Bilirubin 2.1 H Direct Bilirubin AST 284 H ALT 201 H D Alkaline Phosphatase 377 H Total Protein 6.9 Albumin 3.6 Globulin 3.3 Albumin/Globulin Ratio 1.1 Triglycerides Cholesterol LDL Cholesterol Direct HDL Cholesterol Lipase 94231 H Vitamin B12 Folate Urine Color Urine Clarity Urine pH Ur Specific [place] Urine Protein Urine Glucose (UA) Urine Ketones Urine Blood Urine Nitrate Urine Bilirubin Urine Urobilinogen Ur Leukocyte Esterase Urine WBC (Auto) Urine RBC (Auto) Stool Occult Blood Alcohol, Quantitative Blood Type Blood Type Confirm Antibody Screen 12/18/18 12/18/18 12/18/18 22:23 22:28 23:39 WBC RBC Hgb Hct MCV MCH MCHC RDW Plt Count MPV Neut % (Auto) Lymph % (Auto) [place] % (Auto) Eos % (Auto) Baso % (Auto) Neut # (Auto) Lymph # (Auto) [place] # (Auto) Eos # (Auto) Baso # (Auto) Neutrophils % (Manual) Band Neutrophils % Lymphocytes % (Manual) Monocytes % (Manual) Eosinophils % (Manual) Basophils % (Manual) Platelet Estimate Polychromasia Hypochromasia (manual) Poikilocytosis (manual Anisocytosis (manual) Microcytosis (manual) Ovalocytes Haptoglobin PT INR APTT Sodium Potassium Chloride Carbon Dioxide Anion Gap BUN Creatinine Est GFR ( Amer) Est GFR (Non-Af Amer) POC Glucose (mg/dL) Random Glucose Calcium Phosphorus Magnesium Iron TIBC % Saturation Ferritin Total Bilirubin Direct Bilirubin AST ALT Alkaline Phosphatase Total Protein Albumin Globulin Albumin/Globulin Ratio Triglycerides Cholesterol LDL Cholesterol Direct HDL Cholesterol Lipase Vitamin B12 Folate Urine Color [place] Urine Clarity Clear Urine pH 5.0 Ur Specific [place] 1.017 Urine Protein 1+ H Urine Glucose (UA) Normal Urine Ketones Negative Urine Blood Negative Urine Nitrate Negative Urine Bilirubin 1+ H Urine Urobilinogen 4.0 Ur Leukocyte Esterase Neg Urine WBC (Auto) 4 Urine RBC (Auto) 1 Stool Occult Blood Alcohol, Quantitative < 10 Blood Type A POSITIVE Blood Type Confirm A POSITIVE Antibody Screen Negative 12/19/18 12/19/18 12/19/18 07:51 10:53 11:46 WBC 10.0 RBC 4.17 L Hgb 6.5 L* Hct 23.4 L MCV 56.1 L MCH 15.7 L MCHC 27.9 L RDW 21.1 H Plt Count 703 H MPV 6.6 L Neut % (Auto) 85.6 H Lymph % (Auto) 6.1 L [place] % (Auto) 4.1 Eos % (Auto) 3.3 Baso % (Auto) 0.9 Neut # (Auto) 8.5 H Lymph # (Auto) 0.6 L [place] # (Auto) 0.4 Eos # (Auto) 0.3 Baso # (Auto) 0.1 Neutrophils % (Manual) 84 H Band Neutrophils % 1 Lymphocytes % (Manual) 6 L Monocytes % (Manual) 3 Eosinophils % (Manual) 5 H Basophils % (Manual) 1 Platelet Estimate Increased H Polychromasia Hypochromasia (manual) Moderate Poikilocytosis (manual Slight Anisocytosis (manual) Moderate Microcytosis (manual) Moderate Ovalocytes Moderate Haptoglobin PT INR APTT Sodium Potassium Chloride Carbon Dioxide Anion Gap BUN Creatinine Est GFR ( Amer) Est GFR (Non-Af Amer) POC Glucose (mg/dL) 120 H 127 H Random Glucose Calcium Phosphorus Magnesium Iron TIBC % Saturation Ferritin Total Bilirubin Direct Bilirubin AST ALT Alkaline Phosphatase Total Protein Albumin Globulin Albumin/Globulin Ratio Triglycerides Cholesterol LDL Cholesterol Direct HDL Cholesterol Lipase Vitamin B12 Folate Urine Color Urine Clarity Urine pH Ur Specific [place] Urine Protein Urine Glucose (UA) Urine Ketones Urine Blood Urine Nitrate Urine Bilirubin Urine Urobilinogen Ur Leukocyte Esterase Urine WBC (Auto) Urine RBC (Auto) Stool Occult Blood Alcohol, Quantitative Blood Type Blood Type Confirm Antibody Screen 12/19/18 12/19/18 12/19/18 11:46 11:46 11:46 WBC RBC Hgb Hct MCV MCH MCHC RDW Plt Count MPV Neut % (Auto) Lymph % (Auto) [place] % (Auto) Eos % (Auto) Baso % (Auto) Neut # (Auto) Lymph # (Auto) [place] # (Auto) Eos # (Auto) Baso # (Auto) Neutrophils % (Manual) Band Neutrophils % Lymphocytes % (Manual) Monocytes % (Manual) Eosinophils % (Manual) Basophils % (Manual) Platelet Estimate Polychromasia Hypochromasia (manual) Poikilocytosis (manual Anisocytosis (manual) Microcytosis (manual) Ovalocytes Haptoglobin 249.3 H PT INR APTT Sodium 139 Potassium 3.7 Chloride 106 Carbon Dioxide 26 Anion Gap 11 BUN 9 Creatinine 0.7 L Est GFR ( Amer) > 60 Est GFR (Non-Af Amer) > 60 POC Glucose (mg/dL) Random Glucose 124 H D Calcium 8.2 L Phosphorus 3.4 Magnesium 1.9 Iron 14 L TIBC 324 % Saturation 4 L Ferritin Total Bilirubin 2.4 H Direct Bilirubin AST 297 H ALT 262 H D Alkaline Phosphatase 326 H Total Protein 6.4 Albumin 3.3 L Globulin 3.2 Albumin/Globulin Ratio 1.0 Triglycerides 79 D Cholesterol 75 LDL Cholesterol Direct 54 HDL Cholesterol 19 L Lipase Vitamin B12 Folate Urine Color Urine Clarity Urine pH Ur Specific [place] Urine Protein Urine Glucose (UA) Urine Ketones Urine Blood Urine Nitrate Urine Bilirubin Urine Urobilinogen Ur Leukocyte Esterase Urine WBC (Auto) Urine RBC (Auto) Stool Occult Blood Alcohol, Quantitative Blood Type Blood Type Confirm Antibody Screen 12/19/18 12/19/18 12/19/18 11:46 12:52 15:56 WBC RBC Hgb Hct MCV MCH MCHC RDW Plt Count MPV Neut % (Auto) Lymph % (Auto) [place] % (Auto) Eos % (Auto) Baso % (Auto) Neut # (Auto) Lymph # (Auto) [place] # (Auto) Eos # (Auto) Baso # (Auto) Neutrophils % (Manual) Band Neutrophils % Lymphocytes % (Manual) Monocytes % (Manual) Eosinophils % (Manual) Basophils % (Manual) Platelet Estimate Polychromasia Hypochromasia (manual) Poikilocytosis (manual Anisocytosis (manual) Microcytosis (manual) Ovalocytes Haptoglobin PT INR APTT Sodium Potassium Chloride Carbon Dioxide Anion Gap BUN Creatinine Est GFR ( Amer) Est GFR (Non-Af Amer) POC Glucose (mg/dL) 117 H Random Glucose Calcium Phosphorus Magnesium Iron TIBC % Saturation Ferritin 17.4 Total Bilirubin Direct Bilirubin 1.2 H AST ALT Alkaline Phosphatase Total Protein Albumin Globulin Albumin/Globulin Ratio Triglycerides Cholesterol LDL Cholesterol Direct HDL Cholesterol Lipase Vitamin B12 > 1000 H Folate 17.5 Urine Color Urine Clarity Urine pH Ur Specific [place] Urine Protein Urine Glucose (UA) Urine Ketones Urine Blood Urine Nitrate Urine Bilirubin Urine Urobilinogen Ur Leukocyte Esterase Urine WBC (Auto) Urine RBC (Auto) Stool Occult Blood Negative Alcohol, Quantitative Blood Type Blood Type Confirm Antibody Screen
[2018-12-20] MEDS: Lactated Ringer's 1,000 ML IV SCH ×6 (03:15→23:23)
[2018-12-20] MEDS: Piperacill/Tazo 3.375gm in Dex 3.375 GM/50 ML BAG IVPB SCH ×4 (05:28→22:31)
[2018-12-20] MEDS: Levothyroxine 75 MCG TAB PO SCH (05:32)
[2018-12-20 07:31] LABS: BASO # 0.1 K/uL (0.0-0.2); BASO % 1.2 % (0.0-2.0); EOS # 0.4 K/uL (0.0-0.7); EOS % 3.2 % (0.0-4.0); LYMPH # 0.8 K/uL (1.0-4.3); LYMPH % 6.3 % (20.0-40.0); MEAN CORPUSCULAR HEMOGLOBIN 18.5 pg (27.0-31.0); MEAN CORPUSCULAR HGB CONC 30.2 g/dL (33.0-37.0); MEAN PLATELET VOLUME 8.3 fL (7.2-11.7); MONO # 0.6 K/uL (0.0-0.8); MONO % 5.2 % (0.0-10.0); NEUT % 84.1 % (50.0-75.0); NRBC % 0.2 % (0.0-2.0); PLATELET COUNT 620 K/uL (130-400); RBC 4.69 Mil/uL (4.40-5.90); RED CELL DISTRIBUTION WIDTH 28.4 % (11.5-14.5); WHITE BLOOD COUNT 11.9 K/uL (4.8-10.8)
[2018-12-20 07:51] LABS: HEMOGLOBIN 8.7 g/dL (12.0-18.0); MEAN CELL VOLUME 61.2 fL (80.0-94.0)
[2018-12-20 07:54] LABS: ALBUMIN 3.2 g/dL (3.5-5.0); ALT/SGPT 218 U/L (21-72); AMYLASE 282 U/L (30-110); AST/SGOT 158 U/L (17-59); BLOOD UREA NITROGEN 9 mg/dL (9-20); CALCIUM 8.2 mg/dl (8.6-10.4); GFR NON-AFRICAN AMERICAN > 60; LIPASE 546 U/L (23-300)
--- NOTE | 2018-12-20 09:05 | CP.PCM.PN ---
<Michael Hart - Last Filed: 12/20/18 09:02> Subjective - Date & Time of Evaluation Date of Evaluation: 12/20/18 Time of Evaluation: 09:02 - Subjective Subjective: Surgery Progress note- Dr. Chaudhry Patient seen and examined at bedside. mid-epigastric pain improving. denies nausea, vomiting. Remains NPO. +flatus and BM. Denies fevers, chills, chest pain, shortness of breath Objective - Vital Signs/Intake and Output Vital Signs (last 24 hours): Temp Pulse Resp BP Pulse Ox 98.2 F 76 20 146/81 96 12/20/18 08:00 12/20/18 08:00 12/20/18 08:00 12/20/18 08:00 12/20/18 08:00 Intake and Output: 12/20/18 12/20/18 06:59 18:59 Intake Total 2495 Output Total 850 Balance 1645 - Medications Medications: Current Medications Cyanocobalamin (Vitamin B12 1000 Mcg Tab) 1,000 mcg PO DAILY [facility] Last Admin: 12/19/18 09:57 Dose: 1,000 mcg Ergocalciferol (Drisdol 50,000 Intl Units Cap) 1 cap PO QWK [facility] Last Admin: 12/19/18 09:52 Dose: 1 cap Ferric Sodium Gluconate Complex (Ferrlecit) 125 mg IVPB DAILY [facility] Stop: 12/28/18 10:01 Hydromorphone HCl (Dilaudid) 0.5 mg IVP Q3H PRN PRN Reason: Pain, moderate (4-7) Last Admin: 12/19/18 18:10 Dose: 0.5 mg Lactated Ringer's (Lactated Ringer's) 1,000 mls @ 200 mls/hr IV .Q5H [facility] Last Admin: 12/20/18 05:28 Dose: 200 mls/hr Piperacillin Sod/Tazobactam Sod (Zosyn 3.375 Gm Iv Premix) 3.375 gm in 50 mls @ 100 mls/hr IVPB Q6H [facility]; Protocol Last Admin: 12/20/18 05:28 Dose: 100 mls/hr Levothyroxine Sodium (Synthroid) 75 mcg PO DAILY@0630 [facility] Last Admin: 12/20/18 05:32 Dose: Not Given Ondansetron HCl (Zofran Inj) 4 mg IVP Q4H PRN PRN Reason: Nausea/Vomiting Pantoprazole Sodium (Protonix Inj) 40 mg IVP DAILY [facility] Rosuvastatin Calcium (Crestor) 5 mg PO HS [facility] Last Admin: 12/19/18 21:50 Dose: Not Given - Labs Labs: 12/20/18 07:12 12/20/18 07:12 PT 13.1 SECONDS (9.7-12.2) H 12/18/18 21:51 INR 1.2 12/18/18 21:51 APTT 33 SECONDS (21-34) 12/18/18 21:51 - Constitutional Appears: Non-toxic, No Acute Distress - Head Exam Head Exam: NORMAL INSPECTION - Eye Exam Eye Exam: EOMI, Scleral icterus - ENT Exam ENT Exam: Mucous Membranes Moist - Respiratory Exam Respiratory Exam: NORMAL BREATHING PATTERN. absent: Accessory Muscle Use, Respiratory Distress - Cardiovascular Exam Cardiovascular Exam: REGULAR RHYTHM. absent: Bradycardia, Tachycardia - GI/Abdominal Exam GI & Abdominal Exam: Distended (baseline distention), Soft, Tenderness (tender to palpation ). absent: Guarding, Rigid - Neurological Exam Neurological Exam: Alert, Awake, Oriented x3 - Psychiatric Exam Psychiatric exam: Normal Affect - Skin Skin Exam: Intact, Warm Assessment and Plan - Assessment and Plan (Free Text) Assessment: 68M w/ gallstone pancreatitis possible choledocholithiasis Plan: - pain control PRN - aggressive IVF hydration - f/u MRCP - c/s GI; all recs appreciated - c/w Abx - plan for Cholecystectomy this hospital visit - d/w Dr. Chaudhry surgical attending [facility] PGY2 <Mark Chaudhry B - Last Filed: 12/23/18 20:39> Objective - Vital Signs/Intake and Output Vital Signs (last 24 hours): Temp Pulse Resp BP Pulse Ox 97.4 F L 78 20 137/79 94 L 12/23/18 16:00 12/23/18 16:00 12/23/18 16:00 12/23/18 16:00 12/23/18 16:00 Intake and Output: 12/23/18 12/24/18 18:59 06:59 Intake Total 1700 Balance 1700 - Medications Medications: Current Medications Cyanocobalamin (Vitamin B12 1000 Mcg Tab) 1,000 mcg PO DAILY [facility] Last Admin: 12/23/18 09:56 Dose: 1,000 mcg Ergocalciferol (Drisdol 50,000 Intl Units Cap) 1 cap PO QWK [facility] Last Admin: 12/19/18 09:52 Dose: 1 cap Ferric Sodium Gluconate Complex (Ferrlecit) 125 mg IVPB DAILY [facility] Stop: 12/28/18 10:01 Last Admin: 12/23/18 09:56 Dose: 125 mg Hydromorphone HCl (Dilaudid) 0.5 mg IVP Q3H PRN PRN Reason: Pain, moderate (4-7) Last Admin: 12/23/18 10:04 Dose: 0.5 mg Piperacillin Sod/Tazobactam Sod (Zosyn 3.375 Gm Iv Premix) 3.375 gm in 50 mls @ 100 mls/hr IVPB Q6H [facility]; Protocol Last Admin: 12/23/18 17:46 Dose: 100 mls/hr Lactated Ringer's (Lactated Ringer's) 1,000 mls @ 150 mls/hr IV .Q6H40M [facility] Last Admin: 12/23/18 14:31 Dose: Not Given Levothyroxine Sodium (Synthroid) 75 mcg PO DAILY@0630 [facility] Last Admin: 12/23/18 06:38 Dose: 75 mcg Ondansetron HCl (Zofran Inj) 4 mg IVP Q4H PRN PRN Reason: Nausea/Vomiting Pantoprazole Sodium (Protonix Inj) 40 mg IVP DAILY [facility] Last Admin: 12/23/18 09:55 Dose: 40 mg Rosuvastatin Calcium (Crestor) 5 mg PO HS [facility] Last Admin: 12/19/18 21:50 Dose: Not Given - Labs Labs: 12/23/18 07:11 12/23/18 07:11 PT 13.1 SECONDS (9.7-12.2) H 12/18/18 21:51 INR 1.2 12/18/18 21:51 APTT 33 SECONDS (21-34) 12/18/18 21:51 Attending/Attestation - Attestation I have personally seen and examined this patient.: Yes I have fully participated in the care of the patient.: Yes I have reviewed all pertinent clinical information, including history, physical exam and plan: Yes Notes (Text): Pt was seen and examine at bedside Agree with above note and assessment Pt remains stable with minimal improvement Abdomen : severe tenderness c.w current mx NPO, IVF Plan d.w pt in detail
[2018-12-20] MEDS: Ferric Sodium Gluconat Complex 62.5 mg/5 ml Vial IVPB SCH (09:30)
--- NOTE | 2018-12-20 10:06 | CP.PCM.PN ---
Subjective - Date & Time of Evaluation Date of Evaluation: 12/20/18 Time of Evaluation: 10:02 - Subjective Subjective: Patient seen and examined, resting in bed comfortably. No acute events overnight. He continues to report severe epigastric and RUQ abdominal pain. He denies nausea, vomiting, fever/chills. Review of vitals from today are normal. 12 point review of systems performed, negative aside from mentioned above. Objective - Vital Signs/Intake and Output Vital Signs (last 24 hours): Temp Pulse Resp BP Pulse Ox 98.2 F 76 20 146/81 96 12/20/18 08:00 12/20/18 08:00 12/20/18 08:00 12/20/18 08:00 12/20/18 08:00 Intake and Output: 12/20/18 12/20/18 06:59 18:59 Intake Total 2495 Output Total 850 Balance 1645 - Medications Medications: Current Medications Cyanocobalamin (Vitamin B12 1000 Mcg Tab) 1,000 mcg PO DAILY [facility] Last Admin: 12/19/18 09:57 Dose: 1,000 mcg Ergocalciferol (Drisdol 50,000 Intl Units Cap) 1 cap PO QWK [facility] Last Admin: 12/19/18 09:52 Dose: 1 cap Ferric Sodium Gluconate Complex (Ferrlecit) 125 mg IVPB DAILY [facility] Stop: 12/28/18 10:01 Last Admin: 12/20/18 09:30 Dose: 125 mg Hydromorphone HCl (Dilaudid) 0.5 mg IVP Q3H PRN PRN Reason: Pain, moderate (4-7) Last Admin: 12/19/18 18:10 Dose: 0.5 mg Lactated Ringer's (Lactated Ringer's) 1,000 mls @ 200 mls/hr IV .Q5H [facility] Last Admin: 12/20/18 05:28 Dose: 200 mls/hr Piperacillin Sod/Tazobactam Sod (Zosyn 3.375 Gm Iv Premix) 3.375 gm in 50 mls @ 100 mls/hr IVPB Q6H [facility]; Protocol Last Admin: 12/20/18 05:28 Dose: 100 mls/hr Levothyroxine Sodium (Synthroid) 75 mcg PO DAILY@0630 [facility] Last Admin: 12/20/18 05:32 Dose: Not Given Ondansetron HCl (Zofran Inj) 4 mg IVP Q4H PRN PRN Reason: Nausea/Vomiting Pantoprazole Sodium (Protonix Inj) 40 mg IVP DAILY [facility] Last Admin: 12/20/18 09:31 Dose: 40 mg Rosuvastatin Calcium (Crestor) 5 mg PO HS [facility] Last Admin: 12/19/18 21:50 Dose: Not Given - Labs Labs: 12/20/18 07:12 12/20/18 07:12 PT 13.1 SECONDS (9.7-12.2) H 12/18/18 21:51 INR 1.2 12/18/18 21:51 APTT 33 SECONDS (21-34) 12/18/18 21:51 - Constitutional Appears: Non-toxic, No Acute Distress - Head Exam Head Exam: NORMAL INSPECTION - Eye Exam Eye Exam: EOMI, Normal appearance - ENT Exam ENT Exam: Mucous Membranes Moist - Respiratory Exam Respiratory Exam: Clear to Ausculation Bilateral - Cardiovascular Exam Cardiovascular Exam: +S1, +S2 - GI/Abdominal Exam GI & Abdominal Exam: Soft, Tenderness, Normal Bowel Sounds Additional comments: epigastric and RUQ tenderness to palpation, +guarding - Extremities Exam Extremities Exam: Normal Inspection - Skin Skin Exam: Dry, Intact, Normal Color, Warm Assessment and Plan - Assessment and Plan (Free Text) Assessment: DM TBI Anemia Transaminitis, acute gallstone pancreatitis US imaging shows normal caliber CBD, cholelithiasis Plan: - NPO - Continue with antibiotic therapy - Continue with IVF hydration, supportive care - MRCP ordered by surgical team, awaiting results - LFTs stable, continue to monitor - Follow up surgical recommendations regarding timing of cholecystectomy - Will continue to monitor patient clinical course
[2018-12-20 10:30] LABS: EOSINOPHIL 3 % (0-4); LYMPHOCYTE 4 % (20-40); MONOCYTE 6 % (0-10); NEUTROPHIL 87 % (50-75); TOTAL CELLS COUNTED 100
[2018-12-20 10:31] LABS: ANISOCYTOSIS MODERATE
[2018-12-20 10:32] LABS: MICROCYTOSIS MODERATE
[2018-12-20 10:33] LABS: HYPOCHROMIC MODERATE
[2018-12-20 10:35] LABS: TARGET CELLS SLIGHT
[2018-12-20 10:38] LABS: PLATELET ESTIMATE INCREASED (NORMAL)
[2018-12-20] MEDS: HYDROmorphone 0.5 mg/0.5 ml ISec IVP PRN (10:55)
--- NOTE | 2018-12-20 14:10 | MRI ---
MRCP Indication: r/o choledocholithiasis Technique: Multiplanar, multisequence MR images of the abdomen were obtained, including heavily T2 weighted MRCP images of the biliary system. Rotating maximum intensity projection images of the biliary system were generated. A total of 507 images were submitted for review. Comparison: CT abdomen and pelvis with IV contrast performed 12/19/18, abdominal ultrasound performed 12/19/18 Findings: Examination limited by motion. The liver appears grossly unremarkable on this noncontrast examination. Gallbladder distension. Gallbladder wall thickening. Gallbladder sludge and probable gallstones. There is no intrahepatic biliary ductal dilatation. The common bile duct appears within normal limits in caliber (measuring approximately 6 mm) and tapers distally. The pancreatic duct appears within normal limits of caliber. No definite focal filling defects are seen in the common bile duct or pancreatic duct. Indeterminate 9 mm anterior inferior spleen T2 hyperintense focus. The noncontrast included portions of the adrenal glands, kidneys, spleen, and pancreas appear otherwise unremarkable. No bulky abdominal lymphadenopathy is seen. No ascites. Small bilateral pleural effusions. Bibasilar atelectasis. Degenerative changes of the spine. Impression: No filling defects seen within the common bile duct which appears within normal limits of caliber. Gallbladder distension. Gallbladder wall thickening. Gallbladder sludge and probable gallstones. Correlate clinically. Indeterminate 9 mm anterior inferior spleen T2 hyperintense focus. Small bilateral pleural effusions. Bibasilar atelectasis.
--- NOTE | 2018-12-20 14:34 | CP.PCM.PN ---
"Subjective - Date & Time of Evaluation Date of Evaluation: 12/20/18 Time of Evaluation: 09:00 - Subjective Subjective: Patient seen and examined. No overnight events reported. Abdominal pain has improved. He denies any fever, chills, headache, chest pain, sob, nausea, vomiting, or changes in bowel habits. Objective - Vital Signs/Intake and Output Vital Signs (last 24 hours): Temp Pulse Resp BP Pulse Ox 98.2 F 76 20 146/81 96 12/20/18 08:00 12/20/18 08:00 12/20/18 08:00 12/20/18 08:00 12/20/18 08:00 Intake and Output: 12/20/18 12/20/18 06:59 18:59 Intake Total 2495 Output Total 850 Balance 1645 - Medications Medications: Current Medications Cyanocobalamin (Vitamin B12 1000 Mcg Tab) 1,000 mcg PO DAILY [facility] Last Admin: 12/20/18 10:18 Dose: Not Given Ergocalciferol (Drisdol 50,000 Intl Units Cap) 1 cap PO QWK [facility] Last Admin: 12/19/18 09:52 Dose: 1 cap Ferric Sodium Gluconate Complex (Ferrlecit) 125 mg IVPB DAILY [facility] Stop: 12/28/18 10:01 Last Admin: 12/20/18 09:30 Dose: 125 mg Hydromorphone HCl (Dilaudid) 0.5 mg IVP Q3H PRN PRN Reason: Pain, moderate (4-7) Last Admin: 12/20/18 10:55 Dose: 0.5 mg Lactated Ringer's (Lactated Ringer's) 1,000 mls @ 200 mls/hr IV .Q5H [facility] Last Admin: 12/20/18 13:36 Dose: 200 mls/hr Piperacillin Sod/Tazobactam Sod (Zosyn 3.375 Gm Iv Premix) 3.375 gm in 50 mls @ 100 mls/hr IVPB Q6H [facility]; Protocol Last Admin: 12/20/18 10:50 Dose: 100 mls/hr Levothyroxine Sodium (Synthroid) 75 mcg PO DAILY@0630 [facility] Last Admin: 12/20/18 05:32 Dose: Not Given Ondansetron HCl (Zofran Inj) 4 mg IVP Q4H PRN PRN Reason: Nausea/Vomiting Pantoprazole Sodium (Protonix Inj) 40 mg IVP DAILY [facility] Last Admin: 12/20/18 09:31 Dose: 40 mg Rosuvastatin Calcium (Crestor) 5 mg PO HS [facility] Last Admin: 12/19/18 21:50 Dose: Not Given - Labs Labs: 12/20/18 07:12 12/20/18 07:12 PT 13.1 SECONDS (9.7-12.2) H 12/18/18 21:51 INR 1.2 12/18/18 21:51 APTT 33 SECONDS (21-34) 12/18/18 21:51 - Additional Findings Additional findings: - Constitutional Appears: Well, Non-toxic, No Acute Distress - Head Exam Head Exam: ATRAUMATIC, NORMAL INSPECTION, NORMOCEPHALIC - Eye Exam Eye Exam: EOMI, Normal appearance. absent: Scleral icterus - ENT Exam ENT Exam: Mucous Membranes Dry - Neck Exam Neck Exam: absent: Lymphadenopathy - Respiratory Exam Respiratory Exam: Clear to Ausculation Bilateral. absent: Accessory Muscle Use Additional comments: Nasal [place]. - Cardiovascular Exam Cardiovascular Exam: RRR, +S1, +S2. absent: JVD - GI/Abdominal Exam GI & Abdominal Exam: Distended, Guarding, Tenderness (RUQ, Epigastric, Periumblical. Can't assess napier's sign due to pain. ), Hypoactive Bowel Sounds. absent: Mass, Rebound - Extremities Exam Extremities Exam: Normal Inspection. absent: Pedal Edema - Neurological Exam Neurological Exam: Alert, Awake, Oriented x3 - Skin Skin Exam: Dry, Intact, Normal Color, Warm Assessment and Plan - Assessment and Plan (Free Text) Assessment: 68 year old male with a PMHx of HLD, Diabetes, Diverticulosis, Hemorrhoids, and hypothyroidism admitted for evaluation and treatment of gallstone pancreatitis and acute cholecystitis. Plan: Gallstone Pancreatitis. Abd/Pelvis CT (Admission): shows pancreatitis and cholecystitis. Abdomen US (Admission): Free Fluid in Liver, Fatty Liver, GB Stones and Sludge, Slightly dilated hepatic ducts, dilated CBD, Normal Kidneys/Spleen. Limited view of pancreas. Lipase LFT's Elevated. Consults: GI (Dr. Mccann) | Surgery (Dr. Chaudhry) Lipid Panel: Shows low HDL, the rest is WNL. Mgmt: NPO | LR @ 200 mls/hr Dilauded 0.5mg Q3H IVP Acute Cholecystitis Abd/Pelvis CT (Admission): shows pancreatitis and cholecystitis. Abdomen US (Admission): Free Fluid in Liver, Fatty Liver, GB Stones and Sludge, Slightly dilated hepatic ducts, dilated CBD, Normal Kidneys/Spleen. Limited view of pancreas. MRCP of Abdomen: No filling defect. Consults: Surgery (Dr. Chaudhry) Cholecystecomy to be on Monday12/24/18 LFT's improving. Mgmt: NPO | LR @ 200 mls/hr Zosyn 3.375 IVP Q6H Dilauded 0.5mg Q3H IVP Zofran PRN Iron Def. Anemia. Likely Iron Deficiency. HgB - 7.0 on Admission Has had GI Bleed in the past. Colonscopy (07/27/15) showed polyps and AVM in Ascending Colon which was treated. Anemia Workup SHows Low Iron and Elevated Haptoglobin. | Stool Occult Blood #1 - NEGATIVE. Monitor Two Units of PRBCs Mgmt: Ferrlicet 125mg IV Daily. Blood in Stool Likely 2/2 to Hemorrhoids. Stool Occult Blood NEGATIVE Will cont. to monitor HgB. Thrombocytosis Likely Reactive Thrombocytosis 2/2 to Iron Def. Anemia vs Cholecystitis Will Cont. to Monitor. Diabetes Hold Home Meds until patient is not NPO Will start ISS once patient is not NPO Hypothyroidism Mgmt: Home Synthroid 75mcg HLD Mgmt: Crestor 5 HS Proph VTE proph Contraindicated SCD's Protonix IV Daily Dispo: Patient will go to OR for Cholecystectomy on Monday. Patient discussed with Attending (Dr. Oj Williamson) Milagros Agosto, PGY-2"
--- NOTE | 2018-12-20 16:58 | CP.PCM.PN ---
Subjective - Date & Time of Evaluation Date of Evaluation: 12/20/18 Time of Evaluation: 08:00 - Subjective Subjective: clinically same Objective - Vital Signs/Intake and Output Vital Signs (last 24 hours): Temp Pulse Resp BP Pulse Ox 98.5 F 84 20 129/75 96 12/20/18 16:00 12/20/18 16:00 12/20/18 16:00 12/20/18 16:00 12/20/18 16:00 Intake and Output: 12/20/18 12/20/18 06:59 18:59 Intake Total 2495 Output Total 850 Balance 1645 - Medications Medications: Current Medications Cyanocobalamin (Vitamin B12 1000 Mcg Tab) 1,000 mcg PO DAILY [facility] Last Admin: 12/20/18 10:18 Dose: Not Given Ergocalciferol (Drisdol 50,000 Intl Units Cap) 1 cap PO QWK [facility] Last Admin: 12/19/18 09:52 Dose: 1 cap Ferric Sodium Gluconate Complex (Ferrlecit) 125 mg IVPB DAILY [facility] Stop: 12/28/18 10:01 Last Admin: 12/20/18 09:30 Dose: 125 mg Hydromorphone HCl (Dilaudid) 0.5 mg IVP Q3H PRN PRN Reason: Pain, moderate (4-7) Last Admin: 12/20/18 10:55 Dose: 0.5 mg Lactated Ringer's (Lactated Ringer's) 1,000 mls @ 200 mls/hr IV .Q5H [facility] Last Admin: 12/20/18 13:36 Dose: 200 mls/hr Piperacillin Sod/Tazobactam Sod (Zosyn 3.375 Gm Iv Premix) 3.375 gm in 50 mls @ 100 mls/hr IVPB Q6H [facility]; Protocol Last Admin: 12/20/18 10:50 Dose: 100 mls/hr Levothyroxine Sodium (Synthroid) 75 mcg PO DAILY@0630 [facility] Last Admin: 12/20/18 05:32 Dose: Not Given Ondansetron HCl (Zofran Inj) 4 mg IVP Q4H PRN PRN Reason: Nausea/Vomiting Pantoprazole Sodium (Protonix Inj) 40 mg IVP DAILY [facility] Last Admin: 12/20/18 09:31 Dose: 40 mg Rosuvastatin Calcium (Crestor) 5 mg PO HS [facility] Last Admin: 12/19/18 21:50 Dose: Not Given - Labs Labs: 12/20/18 07:12 12/20/18 07:12 PT 13.1 SECONDS (9.7-12.2) H 12/18/18 21:51 INR 1.2 12/18/18 21:51 APTT 33 SECONDS (21-34) 12/18/18 21:51
--- NOTE | 2018-12-20 21:23 | CARD ---
APPROVED REPORT Date of service: 12/18/2018 EKG Measurement Heart [id number] SD [id number] <Conclusion> Normal sinus rhythm Right bundle branch block Inferior infarct, age undetermined Abnormal ECG
[2018-12-21] MEDS: Lactated Ringer's 1,000 ML IV SCH ×8 (02:00→22:45)
[2018-12-21] MEDS: Piperacill/Tazo 3.375gm in Dex 3.375 GM/50 ML BAG IVPB SCH ×4 (04:50→22:43)
[2018-12-21] MEDS: Levothyroxine 75 MCG TAB PO SCH (06:08)
[2018-12-21 07:27] LABS: BASO # 0.1 K/uL (0.0-0.2); EOS # 0.4 K/uL (0.0-0.7); EOS % 3.3 % (0.0-4.0); HEMOGLOBIN 8.8 g/dL (12.0-18.0); LYMPH % 7.9 % (20.0-40.0); MEAN CELL VOLUME 61.1 fL (80.0-94.0); MEAN CORPUSCULAR HGB CONC 29.4 g/dL (33.0-37.0); MEAN PLATELET VOLUME 8.5 fL (7.2-11.7); MONO # 0.8 K/uL (0.0-0.8); MONO % 6.9 % (0.0-10.0); NEUT # 9.9 K/uL (1.8-7.0); NEUT % 80.9 % (50.0-75.0); NRBC % 0.3 % (0.0-2.0); PLATELET COUNT 631 K/uL (130-400); RBC 4.89 Mil/uL (4.40-5.90); RED CELL DISTRIBUTION WIDTH 27.4 % (11.5-14.5); WHITE BLOOD COUNT 12.2 K/uL (4.8-10.8)
--- NOTE | 2018-12-21 07:38 | CP.PCM.PN ---
<Brenda Holguin - Last Filed: 12/21/18 07:38> Subjective - Date & Time of Evaluation Date of Evaluation: 12/21/18 Time of Evaluation: 07:35 - Subjective Subjective: General Surgery - Dr. Chaudhyr PT S&ERose MOTA. PT still with RUQ abdominal pain mostly with palpation. He states his pain is well controlled at rest. He is tolerating clear liquids. He denies any Fevers/Chills/SOB/Chest pain/Nausea/Vomiting. Objective - Vital Signs/Intake and Output Vital Signs (last 24 hours): Temp Pulse Resp BP Pulse Ox 98.6 F 89 20 133/76 96 12/21/18 00:00 12/21/18 00:00 12/21/18 00:00 12/21/18 00:00 12/21/18 00:00 Intake and Output: 12/21/18 12/21/18 06:59 18:59 Intake Total 3650 Output Total 1800 Balance 1850 - Medications Medications: Current Medications Cyanocobalamin (Vitamin B12 1000 Mcg Tab) 1,000 mcg PO DAILY [facility] Last Admin: 12/20/18 10:18 Dose: Not Given Ergocalciferol (Drisdol 50,000 Intl Units Cap) 1 cap PO QWK [facility] Last Admin: 12/19/18 09:52 Dose: 1 cap Ferric Sodium Gluconate Complex (Ferrlecit) 125 mg IVPB DAILY [facility] Stop: 12/28/18 10:01 Last Admin: 12/20/18 09:30 Dose: 125 mg Hydromorphone HCl (Dilaudid) 0.5 mg IVP Q3H PRN PRN Reason: Pain, moderate (4-7) Last Admin: 12/20/18 10:55 Dose: 0.5 mg Lactated Ringer's (Lactated Ringer's) 1,000 mls @ 200 mls/hr IV .Q5H [facility] Last Admin: 12/21/18 04:15 Dose: Not Given Piperacillin Sod/Tazobactam Sod (Zosyn 3.375 Gm Iv Premix) 3.375 gm in 50 mls @ 100 mls/hr IVPB Q6H [facility]; Protocol Last Admin: 12/21/18 04:50 Dose: 100 mls/hr Levothyroxine Sodium (Synthroid) 75 mcg PO DAILY@0630 [facility] Last Admin: 12/21/18 06:08 Dose: 75 mcg Ondansetron HCl (Zofran Inj) 4 mg IVP Q4H PRN PRN Reason: Nausea/Vomiting Pantoprazole Sodium (Protonix Inj) 40 mg IVP DAILY [facility] Last Admin: 12/20/18 09:31 Dose: 40 mg Rosuvastatin Calcium (Crestor) 5 mg PO HS [facility] Last Admin: 12/19/18 21:50 Dose: Not Given - Labs Labs: 12/21/18 07:11 12/20/18 07:12 PT 13.1 SECONDS (9.7-12.2) H 12/18/18 21:51 INR 1.2 12/18/18 21:51 APTT 33 SECONDS (21-34) 12/18/18 21:51 - Constitutional Appears: No Acute Distress - Head Exam Head Exam: ATRAUMATIC, NORMAL INSPECTION, NORMOCEPHALIC - Eye Exam Eye Exam: Normal appearance - Respiratory Exam Respiratory Exam: NORMAL BREATHING PATTERN. absent: Respiratory Distress - Cardiovascular Exam Cardiovascular Exam: REGULAR RHYTHM - GI/Abdominal Exam GI & Abdominal Exam: Distended, Guarding, Soft, Tenderness. absent: Firm, Rigid, Rebound - Neurological Exam Neurological Exam: Alert, Oriented x3 - Psychiatric Exam Psychiatric exam: Normal Affect, Normal Mood - Skin Skin Exam: Dry, Intact Assessment and Plan - Assessment and Plan (Free Text) Assessment: 68M w/ Cholecystitis, gallstone pancreatitis Plan: - Cont. clear liquids - Cont. IVF - Cont. IV Abx - Pain control PRN - Plan for cholecystectomy on Monday, NPO after midnight Monday night Dr Isidoro Holguin PGY4 <Mark Chaudhry B - Last Filed: 12/23/18 20:40> Objective - Vital Signs/Intake and Output Vital Signs (last 24 hours): Temp Pulse Resp BP Pulse Ox 97.4 F L 78 20 137/79 94 L 12/23/18 16:00 12/23/18 16:00 12/23/18 16:00 12/23/18 16:00 12/23/18 16:00 Intake and Output: 12/23/18 12/24/18 18:59 06:59 Intake Total 1700 Balance 1700 - Medications Medications: Current Medications Cyanocobalamin (Vitamin B12 1000 Mcg Tab) 1,000 mcg PO DAILY [facility] Last Admin: 12/23/18 09:56 Dose: 1,000 mcg Ergocalciferol (Drisdol 50,000 Intl Units Cap) 1 cap PO QWK [facility] Last Admin: 12/19/18 09:52 Dose: 1 cap Ferric Sodium Gluconate Complex (Ferrlecit) 125 mg IVPB DAILY [facility] Stop: 12/28/18 10:01 Last Admin: 12/23/18 09:56 Dose: 125 mg Hydromorphone HCl (Dilaudid) 0.5 mg IVP Q3H PRN PRN Reason: Pain, moderate (4-7) Last Admin: 12/23/18 10:04 Dose: 0.5 mg Piperacillin Sod/Tazobactam Sod (Zosyn 3.375 Gm Iv Premix) 3.375 gm in 50 mls @ 100 mls/hr IVPB Q6H [facility]; Protocol Last Admin: 12/23/18 17:46 Dose: 100 mls/hr Lactated Ringer's (Lactated Ringer's) 1,000 mls @ 150 mls/hr IV .Q6H40M [facility] Last Admin: 12/23/18 14:31 Dose: Not Given Levothyroxine Sodium (Synthroid) 75 mcg PO DAILY@0630 [facility] Last Admin: 12/23/18 06:38 Dose: 75 mcg Ondansetron HCl (Zofran Inj) 4 mg IVP Q4H PRN PRN Reason: Nausea/Vomiting Pantoprazole Sodium (Protonix Inj) 40 mg IVP DAILY [facility] Last Admin: 12/23/18 09:55 Dose: 40 mg Rosuvastatin Calcium (Crestor) 5 mg PO HS [facility] Last Admin: 12/19/18 21:50 Dose: Not Given - Labs Labs: 12/23/18 07:11 12/23/18 07:11 PT 13.1 SECONDS (9.7-12.2) H 12/18/18 21:51 INR 1.2 12/18/18 21:51 APTT 33 SECONDS (21-34) 12/18/18 21:51 Attending/Attestation - Attestation I have personally seen and examined this patient.: Yes I have fully participated in the care of the patient.: Yes I have reviewed all pertinent clinical information, including history, physical exam and plan: Yes Notes (Text): Pt was seen and examine at bedside Agree with above note and assessment Pt is improving clinically f.u MRCP NPO, IVF Possible OR on monday for Lap Cholecystectomy Plan d.w pt in detail.
--- NOTE | 2018-12-21 07:49 | CP.PCM.PN ---
"Subjective - Date & Time of Evaluation Date of Evaluation: 12/21/18 Time of Evaluation: 07:48 - Subjective Subjective: PGY-2 Dr. Vinita Williamson Service Patient seen and examined at bedside. Per nursing, no acute events occurred overnight. Patient still reporting some epigastric pain and right upper quadrant pain during today's exam. Patient tolerating liquid diet. Patient denies any fevers, chills, nausea, vomiting, headaches, dizziness, syncopal episodes, or any other complaints. Objective - Vital Signs/Intake and Output Vital Signs (last 24 hours): Temp Pulse Resp BP Pulse Ox 98.6 F 89 20 133/76 96 12/21/18 00:00 12/21/18 00:00 12/21/18 00:00 12/21/18 00:00 12/21/18 00:00 Intake and Output: 12/21/18 12/21/18 06:59 18:59 Intake Total 3650 Output Total 1800 Balance 1850 - Medications Medications: Current Medications Cyanocobalamin (Vitamin B12 1000 Mcg Tab) 1,000 mcg PO DAILY [facility] Last Admin: 12/20/18 10:18 Dose: Not Given Ergocalciferol (Drisdol 50,000 Intl Units Cap) 1 cap PO QWK [facility] Last Admin: 12/19/18 09:52 Dose: 1 cap Ferric Sodium Gluconate Complex (Ferrlecit) 125 mg IVPB DAILY [facility] Stop: 12/28/18 10:01 Last Admin: 12/20/18 09:30 Dose: 125 mg Hydromorphone HCl (Dilaudid) 0.5 mg IVP Q3H PRN PRN Reason: Pain, moderate (4-7) Last Admin: 12/20/18 10:55 Dose: 0.5 mg Lactated Ringer's (Lactated Ringer's) 1,000 mls @ 200 mls/hr IV .Q5H [facility] Last Admin: 12/21/18 04:15 Dose: Not Given Piperacillin Sod/Tazobactam Sod (Zosyn 3.375 Gm Iv Premix) 3.375 gm in 50 mls @ 100 mls/hr IVPB Q6H [facility]; Protocol Last Admin: 12/21/18 04:50 Dose: 100 mls/hr Levothyroxine Sodium (Synthroid) 75 mcg PO DAILY@0630 [facility] Last Admin: 12/21/18 06:08 Dose: 75 mcg Ondansetron HCl (Zofran Inj) 4 mg IVP Q4H PRN PRN Reason: Nausea/Vomiting Pantoprazole Sodium (Protonix Inj) 40 mg IVP DAILY [facility] Last Admin: 12/20/18 09:31 Dose: 40 mg Rosuvastatin Calcium (Crestor) 5 mg PO HS [facility] Last Admin: 12/19/18 21:50 Dose: Not Given - Labs Labs: 12/21/18 07:11 12/20/18 07:12 PT 13.1 SECONDS (9.7-12.2) H 12/18/18 21:51 INR 1.2 12/18/18 21:51 APTT 33 SECONDS (21-34) 12/18/18 21:51 - Head Exam Head Exam: NORMAL INSPECTION - Eye Exam Eye Exam: EOMI, Normal appearance, PERRL Pupil Exam: NORMAL ACCOMODATION - ENT Exam ENT Exam: Mucous Membranes Moist, Normal Oropharynx - Cardiovascular Exam Cardiovascular Exam: REGULAR RHYTHM, +S1, +S2 - GI/Abdominal Exam GI & Abdominal Exam: Soft, Normal Bowel Sounds - Extremities Exam Extremities Exam: Full ROM, Normal Inspection. absent: Pedal Edema - Neurological Exam Neurological Exam: Alert, Awake, Oriented x3 - Psychiatric Exam Psychiatric exam: Normal Affect, Normal Mood. absent: Depressed - Skin Skin Exam: Dry, Intact, Normal Color Assessment and Plan - Assessment and Plan (Free Text) Plan: 68 year old male with a PMHx of HLD, Diabetes, Diverticulosis, Hemorrhoids, and hypothyroidism admitted for evaluation and treatment of gallstone pancreatitis and acute cholecystitis. Plan: Gallstone Pancreatitis. Abd/Pelvis CT (Admission): shows pancreatitis and cholecystitis. Abdomen US (Admission): Free Fluid in Liver, Fatty Liver, GB Stones and Sludge, Slightly dilated hepatic ducts, dilated CBD, Normal Kidneys/Spleen. Limited view of pancreas. Lipase LFT's Elevated. Consults: GI (Dr. Mccann) | Surgery (Dr. Chaudhry) Lipid Panel: Shows low HDL, the rest is WNL. Mgmt: Clear liquid diet| LR @ 200 mls/hr Dilauded 0.5mg Q3H IVP Acute Cholecystitis Abd/Pelvis CT (Admission): shows pancreatitis and cholecystitis. Abdomen US (Admission): Free Fluid in Liver, Fatty Liver, GB Stones and Sludge, Slightly dilated hepatic ducts, dilated CBD, Normal Kidneys/Spleen. Limited view of pancreas. MRCP of Abdomen: No filling defect. Consults: Surgery (Dr. Chaudhry) Cholecystecomy to be on Monday12/24/18 LFT's improving. Mgmt: Clear Liquid| LR @ 200 mls/hr Zosyn 3.375 IVP Q6H Dilauded 0.5mg Q3H IVP Zofran PRN Iron Def. Anemia. Likely Iron Deficiency. HgB - 7.0 on Admission Has had GI Bleed in the past. Colonscopy (07/27/15) showed polyps and AVM in Ascending Colon which was treated. Anemia Workup SHows Low Iron and Elevated Haptoglobin. | Stool Occult Blood #1 - NEGATIVE. Monitor Two Units of PRBCs Mgmt: Ferrlicet 125mg IV Daily. Blood in Stool Likely 2/2 to Hemorrhoids. Stool Occult Blood NEGATIVE Will cont. to monitor HgB. Thrombocytosis Likely Reactive Thrombocytosis 2/2 to Iron Def. Anemia vs Cholecystitis Will Cont. to Monitor. Diabetes Hold Home Meds until patient is not NPO Will start ISS once patient is not NPO Hypothyroidism Mgmt: Home Synthroid 75mcg HLD Mgmt: Crestor 5 HS Proph VTE proph Contraindicated SCD's Protonix IV Daily Dispo: Patient will go to OR for Cholecystectomy on Monday per Surgery Team. Patient discussed with Attending (Dr. Oj Williamson) Lalo Mercado, PGY-2"
[2018-12-21 08:03] LABS: ALBUMIN 3.1 g/dL (3.5-5.0); ALT/SGPT 135 U/L (21-72); AMYLASE 98 U/L (30-110); AST/SGOT 64 U/L (17-59); BLOOD UREA NITROGEN 5 mg/dL (9-20); CALCIUM 8.6 mg/dl (8.6-10.4); GFR NON-AFRICAN AMERICAN > 60; LIPASE 154 U/L (23-300)
[2018-12-21 08:47] LABS: BASOPHIL 1 % (0-2); EOSINOPHIL 4 % (0-4); LYMPHOCYTE 9 % (20-40); MONOCYTE 5 % (0-10); NEUTROPHIL 81 % (50-75); TOTAL CELLS COUNTED 100
[2018-12-21 08:48] LABS: ANISOCYTOSIS MODERATE
[2018-12-21 08:49] LABS: HYPOCHROMIC MODERATE; PLATELET ESTIMATE INCREASED (NORMAL)
[2018-12-21 08:51] LABS: POLYCHROMIC SLIGHT; TARGET CELLS SLIGHT
[2018-12-21 08:53] LABS: STOMATOCYTES SLIGHT
--- NOTE | 2018-12-21 09:00 | CP.PCM.PN ---
<Mitch Williamson - Last Filed: 12/21/18 09:02> Subjective - Date & Time of Evaluation Date of Evaluation: 12/21/18 Time of Evaluation: 07:00 - Subjective Subjective: PGY5 GI Follow-up Pt seen and examined bedside Still has abd pain in the epigastric area Denies any fever, chills or diarrhea tolerating clears ROS: 12 point ROS conducted, neg other than above Objective - Vital Signs/Intake and Output Vital Signs (last 24 hours): Temp Pulse Resp BP Pulse Ox 98.7 F 85 20 143/79 96 12/21/18 08:00 12/21/18 08:00 12/21/18 08:00 12/21/18 08:00 12/21/18 08:00 Intake and Output: 12/21/18 12/21/18 06:59 18:59 Intake Total 3650 Output Total 1800 Balance 1850 - Medications Medications: Current Medications Cyanocobalamin (Vitamin B12 1000 Mcg Tab) 1,000 mcg PO DAILY [facility] Last Admin: 12/20/18 10:18 Dose: Not Given Ergocalciferol (Drisdol 50,000 Intl Units Cap) 1 cap PO QWK [facility] Last Admin: 12/19/18 09:52 Dose: 1 cap Ferric Sodium Gluconate Complex (Ferrlecit) 125 mg IVPB DAILY [facility] Stop: 12/28/18 10:01 Last Admin: 12/20/18 09:30 Dose: 125 mg Hydromorphone HCl (Dilaudid) 0.5 mg IVP Q3H PRN PRN Reason: Pain, moderate (4-7) Last Admin: 12/20/18 10:55 Dose: 0.5 mg Lactated Ringer's (Lactated Ringer's) 1,000 mls @ 200 mls/hr IV .Q5H [facility] Last Admin: 12/21/18 08:31 Dose: 200 mls/hr Piperacillin Sod/Tazobactam Sod (Zosyn 3.375 Gm Iv Premix) 3.375 gm in 50 mls @ 100 mls/hr IVPB Q6H [facility]; Protocol Last Admin: 12/21/18 04:50 Dose: 100 mls/hr Levothyroxine Sodium (Synthroid) 75 mcg PO DAILY@0630 [facility] Last Admin: 12/21/18 06:08 Dose: 75 mcg Ondansetron HCl (Zofran Inj) 4 mg IVP Q4H PRN PRN Reason: Nausea/Vomiting Pantoprazole Sodium (Protonix Inj) 40 mg IVP DAILY [facility] Last Admin: 12/20/18 09:31 Dose: 40 mg Rosuvastatin Calcium (Crestor) 5 mg PO HS [facility] Last Admin: 12/19/18 21:50 Dose: Not Given - Labs Labs: 12/21/18 07:11 12/21/18 07:11 PT 13.1 SECONDS (9.7-12.2) H 12/18/18 21:51 INR 1.2 12/18/18 21:51 APTT 33 SECONDS (21-34) 12/18/18 21:51 - Constitutional Appears: Non-toxic, No Acute Distress - Head Exam Head Exam: ATRAUMATIC, NORMOCEPHALIC - Eye Exam Eye Exam: Normal appearance - ENT Exam ENT Exam: Mucous Membranes Moist, Normal Exam - Respiratory Exam Respiratory Exam: Clear to Ausculation Bilateral, NORMAL BREATHING PATTERN. absent: Rales, Rhonchi, Wheezes, Respiratory Distress - Cardiovascular Exam Cardiovascular Exam: REGULAR RHYTHM, +S1, +S2 - GI/Abdominal Exam GI & Abdominal Exam: Soft, Tenderness (epigastric and RUQ), Normal Bowel Sounds. absent: Distended, Firm, Guarding, Rigid, Mass, Organomegaly, Pulsatile Mass, Rebound - Extremities Exam Extremities Exam: absent: Joint Swelling, Pedal Edema - Neurological Exam Neurological Exam: Alert, Awake, Oriented x3 - Psychiatric Exam Psychiatric exam: Normal Affect, Normal Mood - Skin Skin Exam: Dry, Intact, Normal Color, Warm Assessment and Plan - Assessment and Plan (Free Text) Assessment: Patient is a 68yo male with PMHx significant for dyslipidemia, diabetes who presented to the ED with abdominal pain -Acute cholecystitis -Acute gallstone pancreatitis -Cholelithiasis, R/O choledocolithiasis -Microcytic anemia -Constipation Plan: -continue IVF with LR@150-200cc/hr -continue clear liquid diet -U/S and CT reviewed appears to have gallstones, pericholecystic fluid, per ipancreatic stranding -MRCP does not reveal CBD stone or filling defect -Cholecysectomy possibly planned for 12/24/2018 -Continue Zosyn -Microcytic anemia noted - no overt bleeding per patient or noted since admission -Given change in bowel habits, microcytic anemia and history of AVM; consider EGD/Colonoscopy once medically optimized, likely as outpatient following resolution of acute events; no evidence for mass lesions on cross-sectional imaging D/W Dr. Mccann <Hoang Mccann Y - Last Filed: 12/21/18 11:45> Objective - Vital Signs/Intake and Output Vital Signs (last 24 hours): Temp Pulse Resp BP Pulse Ox 98.7 F 85 20 143/79 96 12/21/18 08:00 12/21/18 08:00 12/21/18 08:00 12/21/18 08:00 12/21/18 08:00 Intake and Output: 12/21/18 12/21/18 06:59 18:59 Intake Total 3650 Output Total 1800 Balance 1850 - Medications Medications: Current Medications Cyanocobalamin (Vitamin B12 1000 Mcg Tab) 1,000 mcg PO DAILY [facility] Last Admin: 12/21/18 09:24 Dose: Not Given Ergocalciferol (Drisdol 50,000 Intl Units Cap) 1 cap PO QWK [facility] Last Admin: 12/19/18 09:52 Dose: 1 cap Ferric Sodium Gluconate Complex (Ferrlecit) 125 mg IVPB DAILY [facility] Stop: 12/28/18 10:01 Last Admin: 12/21/18 09:25 Dose: 125 mg Hydromorphone HCl (Dilaudid) 0.5 mg IVP Q3H PRN PRN Reason: Pain, moderate (4-7) Last Admin: 12/20/18 10:55 Dose: 0.5 mg Lactated Ringer's (Lactated Ringer's) 1,000 mls @ 200 mls/hr IV .Q5H [facility] Last Admin: 12/21/18 09:19 Dose: Not Given Piperacillin Sod/Tazobactam Sod (Zosyn 3.375 Gm Iv Premix) 3.375 gm in 50 mls @ 100 mls/hr IVPB Q6H [facility]; Protocol Last Admin: 12/21/18 04:50 Dose: 100 mls/hr Levothyroxine Sodium (Synthroid) 75 mcg PO DAILY@0630 [facility] Last Admin: 12/21/18 06:08 Dose: 75 mcg Ondansetron HCl (Zofran Inj) 4 mg IVP Q4H PRN PRN Reason: Nausea/Vomiting Pantoprazole Sodium (Protonix Inj) 40 mg IVP DAILY [facility] Last Admin: 12/21/18 09:23 Dose: 40 mg Rosuvastatin Calcium (Crestor) 5 mg PO HS [facility] Last Admin: 12/19/18 21:50 Dose: Not Given - Labs Labs: 12/21/18 07:11 12/21/18 07:11 PT 13.1 SECONDS (9.7-12.2) H 12/18/18 21:51 INR 1.2 12/18/18 21:51 APTT 33 SECONDS (21-34) 12/18/18 21:51 Attending/Attestation - Attestation I have personally seen and examined this patient.: Yes I have fully participated in the care of the patient.: Yes I have reviewed all pertinent clinical information, including history, physical exam and plan: Yes Notes (Text): 12/21/18 11:39 I have seen and examined patient with GI fellow. No acute events overnight, he is seen resting in bed comfortably. He reports ongoing epigastric and RUQ abdominal pain but denies nausea, vomiting, fever/chills. Tolerating PO liquids without difficulty. Review of vitals from today are normal. Abdominal pain Gallstone pancreatitis MRCP reviewed by me showing no evidence of choledocholithiasis - Liquid diet as tolerated - Continue with antibiotic therapy - LFTs improved, continue to monitor - Follow up surgical recommendations regarding timing of cholecystectomy - No further planned GI interventions at this time, will sign off case. Please reconsult as necessary, thank you.
[2018-12-21] MEDS: Ferric Sodium Gluconat Complex 62.5 mg/5 ml Vial IVPB SCH (09:25)
--- NOTE | 2018-12-21 20:30 | CP.PCM.PN ---
Subjective - Date & Time of Evaluation Date of Evaluation: 12/21/18 Time of Evaluation: 08:00 - Subjective Subjective: clinically same Objective - Vital Signs/Intake and Output Vital Signs (last 24 hours): Temp Pulse Resp BP Pulse Ox 98.3 F 88 20 123/73 96 12/21/18 16:00 12/21/18 16:00 12/21/18 16:00 12/21/18 16:00 12/21/18 16:00 Intake and Output: 12/21/18 12/22/18 18:59 06:59 Intake Total 300 Balance 300 - Medications Medications: Current Medications Cyanocobalamin (Vitamin B12 1000 Mcg Tab) 1,000 mcg PO DAILY [facility] Last Admin: 12/21/18 09:24 Dose: Not Given Ergocalciferol (Drisdol 50,000 Intl Units Cap) 1 cap PO QWK [facility] Last Admin: 12/19/18 09:52 Dose: 1 cap Ferric Sodium Gluconate Complex (Ferrlecit) 125 mg IVPB DAILY [facility] Stop: 12/28/18 10:01 Last Admin: 12/21/18 09:25 Dose: 125 mg Hydromorphone HCl (Dilaudid) 0.5 mg IVP Q3H PRN PRN Reason: Pain, moderate (4-7) Last Admin: 12/20/18 10:55 Dose: 0.5 mg Lactated Ringer's (Lactated Ringer's) 1,000 mls @ 200 mls/hr IV .Q5H [facility] Last Admin: 12/21/18 14:30 Dose: 200 mls/hr Piperacillin Sod/Tazobactam Sod (Zosyn 3.375 Gm Iv Premix) 3.375 gm in 50 mls @ 100 mls/hr IVPB Q6H [facility]; Protocol Last Admin: 12/21/18 16:50 Dose: 100 mls/hr Levothyroxine Sodium (Synthroid) 75 mcg PO DAILY@0630 [facility] Last Admin: 12/21/18 06:08 Dose: 75 mcg Ondansetron HCl (Zofran Inj) 4 mg IVP Q4H PRN PRN Reason: Nausea/Vomiting Pantoprazole Sodium (Protonix Inj) 40 mg IVP DAILY [facility] Last Admin: 12/21/18 09:23 Dose: 40 mg Rosuvastatin Calcium (Crestor) 5 mg PO HS [facility] Last Admin: 12/19/18 21:50 Dose: Not Given - Labs Labs: 12/21/18 07:11 12/21/18 07:11 PT 13.1 SECONDS (9.7-12.2) H 12/18/18 21:51 INR 1.2 12/18/18 21:51 APTT 33 SECONDS (21-34) 12/18/18 21:51
[2018-12-22] MEDS: Lactated Ringer's 1,000 ML IV SCH ×4 (00:15→18:35)
[2018-12-22] MEDS: Piperacill/Tazo 3.375gm in Dex 3.375 GM/50 ML BAG IVPB SCH ×4 (05:26→22:50)
[2018-12-22] MEDS: Levothyroxine 75 MCG TAB PO SCH (06:17)
[2018-12-22 08:07] LABS: BASO # 0.1 K/uL (0.0-0.2); EOS # 0.4 K/uL (0.0-0.7); EOS % 3.6 % (0.0-4.0); LYMPH # 1.4 K/uL (1.0-4.3); LYMPH % 12.4 % (20.0-40.0); MEAN CELL VOLUME 61.9 fL (80.0-94.0); MEAN CORPUSCULAR HEMOGLOBIN 18.6 pg (27.0-31.0); MEAN PLATELET VOLUME 8.4 fL (7.2-11.7); MONO # 0.8 K/uL (0.0-0.8); MONO % 6.9 % (0.0-10.0); NEUT # 8.3 K/uL (1.8-7.0); NEUT % 76.1 % (50.0-75.0); NRBC % 0.1 % (0.0-2.0); RBC 4.83 Mil/uL (4.40-5.90); RED CELL DISTRIBUTION WIDTH 28.6 % (11.5-14.5)
[2018-12-22 08:09] LABS: ALBUMIN 3.2 g/dL (3.5-5.0); ALT/SGPT 97 U/L (21-72); AMYLASE 63 U/L (30-110); AST/SGOT 38 U/L (17-59); BLOOD UREA NITROGEN 3 mg/dL (9-20); CALCIUM 8.5 mg/dl (8.6-10.4); GFR NON-AFRICAN AMERICAN > 60; LIPASE 86 U/L (23-300)
[2018-12-22] MEDS: HYDROmorphone 0.5 mg/0.5 ml ISec IVP PRN (08:33)
--- NOTE | 2018-12-22 09:23 | CP.PCM.PN ---
<Seun Chowdhury - Last Filed: 12/22/18 09:20> Subjective - Date & Time of Evaluation Date of Evaluation: 12/22/18 Time of Evaluation: 09:20 - Subjective Subjective: General Surgery Progress Note for Dr. Chaudhry This 68M was seen and examined this AM at bedside. No acute events reported overnight. He is currently reporting that he is tolerating clears reports significant urine. He reports his abdominal pain is improving, however he has developed new found back pain. He denies any fevers chills chest pain nausea vomiting. Objective - Vital Signs/Intake and Output Vital Signs (last 24 hours): Temp Pulse Resp BP Pulse Ox 98.3 F 89 20 145/85 95 12/22/18 08:01 12/22/18 08:01 12/22/18 08:01 12/22/18 08:01 12/22/18 08:01 Intake and Output: 12/22/18 12/22/18 06:59 18:59 Intake Total 3220 Output Total 1250 Balance 1970 - Medications Medications: Current Medications Cyanocobalamin (Vitamin B12 1000 Mcg Tab) 1,000 mcg PO DAILY [facility] Last Admin: 12/21/18 09:24 Dose: Not Given Ergocalciferol (Drisdol 50,000 Intl Units Cap) 1 cap PO QWK [facility] Last Admin: 12/19/18 09:52 Dose: 1 cap Ferric Sodium Gluconate Complex (Ferrlecit) 125 mg IVPB DAILY [facility] Stop: 12/28/18 10:01 Last Admin: 12/21/18 09:25 Dose: 125 mg Hydromorphone HCl (Dilaudid) 0.5 mg IVP Q3H PRN PRN Reason: Pain, moderate (4-7) Last Admin: 12/22/18 08:33 Dose: 0.5 mg Piperacillin Sod/Tazobactam Sod (Zosyn 3.375 Gm Iv Premix) 3.375 gm in 50 mls @ 100 mls/hr IVPB Q6H [facility]; Protocol Last Admin: 12/22/18 05:26 Dose: 100 mls/hr Lactated Ringer's (Lactated Ringer's) 1,000 mls @ 150 mls/hr IV .Q6H40M [facility] Last Admin: 12/22/18 05:15 Dose: 150 mls/hr Levothyroxine Sodium (Synthroid) 75 mcg PO DAILY@0630 [facility] Last Admin: 12/22/18 06:17 Dose: 75 mcg Ondansetron HCl (Zofran Inj) 4 mg IVP Q4H PRN PRN Reason: Nausea/Vomiting Pantoprazole Sodium (Protonix Inj) 40 mg IVP DAILY [facility] Last Admin: 12/21/18 09:23 Dose: 40 mg Rosuvastatin Calcium (Crestor) 5 mg PO HS [facility] Last Admin: 12/19/18 21:50 Dose: Not Given - Labs Labs: 12/22/18 07:23 12/22/18 07:23 PT 13.1 SECONDS (9.7-12.2) H 12/18/18 21:51 INR 1.2 12/18/18 21:51 APTT 33 SECONDS (21-34) 12/18/18 21:51 - Constitutional Appears: No Acute Distress - Head Exam Head Exam: ATRAUMATIC, NORMAL INSPECTION, NORMOCEPHALIC - Eye Exam Eye Exam: Normal appearance - Respiratory Exam Respiratory Exam: NORMAL BREATHING PATTERN. absent: Respiratory Distress - Cardiovascular Exam Cardiovascular Exam: REGULAR RHYTHM - GI/Abdominal Exam GI & Abdominal Exam: Distended, Soft, Tenderness. absent: Firm, Rigid, Rebound, Guarding - Neurological Exam Neurological Exam: Alert, Oriented x3 - Psychiatric Exam Psychiatric exam: Normal Affect, Normal Mood - Skin Skin Exam: Dry, Intact Assessment and Plan - Assessment and Plan (Free Text) Assessment: 68M w/ Cholecystitis, gallstone pancreatitis Plan: - Continue clear liquid diet - Continue INF - Contintue IV Abx - Pain control PRN - Plan for cholecystectomy on Monday, NPO after midnight Monday night Further recs per Dr. Isidoro Chowdhury PGY3 <Mark Chaudhry - Last Filed: 12/23/18 20:42> Objective - Vital Signs/Intake and Output Vital Signs (last 24 hours): Temp Pulse Resp BP Pulse Ox 97.4 F L 78 20 137/79 94 L 12/23/18 16:00 12/23/18 16:00 12/23/18 16:00 12/23/18 16:00 12/23/18 16:00 Intake and Output: 12/23/18 12/24/18 18:59 06:59 Intake Total 1700 Balance 1700 - Medications Medications: Current Medications Cyanocobalamin (Vitamin B12 1000 Mcg Tab) 1,000 mcg PO DAILY [facility] Last Admin: 12/23/18 09:56 Dose: 1,000 mcg Ergocalciferol (Drisdol 50,000 Intl Units Cap) 1 cap PO QWK [facility] Last Admin: 12/19/18 09:52 Dose: 1 cap Ferric Sodium Gluconate Complex (Ferrlecit) 125 mg IVPB DAILY [facility] Stop: 12/28/18 10:01 Last Admin: 12/23/18 09:56 Dose: 125 mg Hydromorphone HCl (Dilaudid) 0.5 mg IVP Q3H PRN PRN Reason: Pain, moderate (4-7) Last Admin: 12/23/18 10:04 Dose: 0.5 mg Piperacillin Sod/Tazobactam Sod (Zosyn 3.375 Gm Iv Premix) 3.375 gm in 50 mls @ 100 mls/hr IVPB Q6H [facility]; Protocol Last Admin: 12/23/18 17:46 Dose: 100 mls/hr Lactated Ringer's (Lactated Ringer's) 1,000 mls @ 150 mls/hr IV .Q6H40M [facility] Last Admin: 12/23/18 14:31 Dose: Not Given Levothyroxine Sodium (Synthroid) 75 mcg PO DAILY@0630 [facility] Last Admin: 12/23/18 06:38 Dose: 75 mcg Ondansetron HCl (Zofran Inj) 4 mg IVP Q4H PRN PRN Reason: Nausea/Vomiting Pantoprazole Sodium (Protonix Inj) 40 mg IVP DAILY [facility] Last Admin: 12/23/18 09:55 Dose: 40 mg Rosuvastatin Calcium (Crestor) 5 mg PO HS [facility] Last Admin: 12/19/18 21:50 Dose: Not Given - Labs Labs: 12/23/18 07:11 12/23/18 07:11 PT 13.1 SECONDS (9.7-12.2) H 12/18/18 21:51 INR 1.2 12/18/18 21:51 APTT 33 SECONDS (21-34) 12/18/18 21:51 Attending/Attestation - Attestation I have fully participated in the care of the patient.: Yes I have reviewed all pertinent clinical information, including history, physical exam and plan: Yes Notes (Text): Pt is improving clinically labs is trending down c.w current mx Plan d.w pt in detail.
[2018-12-22] MEDS: Ferric Sodium Gluconat Complex 62.5 mg/5 ml Vial IVPB SCH ×2 (11:00→14:18)
--- NOTE | 2018-12-22 14:49 | CP.PCM.PN ---
Subjective - Date & Time of Evaluation Date of Evaluation: 12/22/18 Time of Evaluation: 08:00 - Subjective Subjective: clinically same Objective - Vital Signs/Intake and Output Vital Signs (last 24 hours): Temp Pulse Resp BP Pulse Ox 98.3 F 89 20 145/85 95 12/22/18 08:01 12/22/18 08:01 12/22/18 08:01 12/22/18 08:01 12/22/18 08:01 Intake and Output: 12/22/18 12/22/18 06:59 18:59 Intake Total 3220 Output Total 1250 Balance 1970 - Medications Medications: Current Medications Cyanocobalamin (Vitamin B12 1000 Mcg Tab) 1,000 mcg PO DAILY [facility] Last Admin: 12/22/18 11:00 Dose: 1,000 mcg Ergocalciferol (Drisdol 50,000 Intl Units Cap) 1 cap PO QWK [facility] Last Admin: 12/19/18 09:52 Dose: 1 cap Ferric Sodium Gluconate Complex (Ferrlecit) 125 mg IVPB DAILY [facility] Stop: 12/28/18 10:01 Last Admin: 12/22/18 14:18 Dose: 125 mg Hydromorphone HCl (Dilaudid) 0.5 mg IVP Q3H PRN PRN Reason: Pain, moderate (4-7) Last Admin: 12/22/18 08:33 Dose: 0.5 mg Piperacillin Sod/Tazobactam Sod (Zosyn 3.375 Gm Iv Premix) 3.375 gm in 50 mls @ 100 mls/hr IVPB Q6H [facility]; Protocol Last Admin: 12/22/18 10:59 Dose: 100 mls/hr Lactated Ringer's (Lactated Ringer's) 1,000 mls @ 150 mls/hr IV .Q6H40M [facility] Last Admin: 12/22/18 13:49 Dose: Not Given Levothyroxine Sodium (Synthroid) 75 mcg PO DAILY@0630 [facility] Last Admin: 12/22/18 06:17 Dose: 75 mcg Ondansetron HCl (Zofran Inj) 4 mg IVP Q4H PRN PRN Reason: Nausea/Vomiting Pantoprazole Sodium (Protonix Inj) 40 mg IVP DAILY [facility] Last Admin: 12/22/18 11:00 Dose: 40 mg Rosuvastatin Calcium (Crestor) 5 mg PO HS [facility] Last Admin: 12/19/18 21:50 Dose: Not Given - Labs Labs: 12/22/18 07:23 12/22/18 07:23 PT 13.1 SECONDS (9.7-12.2) H 12/18/18 21:51 INR 1.2 12/18/18 21:51 APTT 33 SECONDS (21-34) 12/18/18 21:51 - Constitutional Appears: Well - Head Exam Head Exam: ATRAUMATIC, NORMAL INSPECTION, NORMOCEPHALIC - Eye Exam Eye Exam: EOMI, Normal appearance, PERRL Pupil Exam: NORMAL ACCOMODATION, PERRL - ENT Exam ENT Exam: Mucous Membranes Moist, Normal Exam - Neck Exam Neck Exam: Full ROM, Normal Inspection. absent: Lymphadenopathy - Respiratory Exam Respiratory Exam: Decreased Breath Sounds - Cardiovascular Exam Cardiovascular Exam: REGULAR RHYTHM, +S1, +S2 - GI/Abdominal Exam GI & Abdominal Exam: Soft, Diminished Bowel Sounds - Rectal Exam Rectal Exam: Deferred
[2018-12-23] MEDS: Lactated Ringer's 1,000 ML IV SCH ×5 (01:15→22:59)
[2018-12-23] MEDS: Piperacill/Tazo 3.375gm in Dex 3.375 GM/50 ML BAG IVPB SCH ×4 (05:32→22:59)
[2018-12-23] MEDS: Levothyroxine 75 MCG TAB PO SCH (06:38)
[2018-12-23 07:52] LABS: HEMOGLOBIN 9.5 g/dL (12.0-18.0); MEAN CELL VOLUME 62.8 fL (80.0-94.0); MEAN CORPUSCULAR HEMOGLOBIN 18.4 pg (27.0-31.0); MEAN CORPUSCULAR HGB CONC 29.3 g/dL (33.0-37.0); MEAN PLATELET VOLUME 8.5 fL (7.2-11.7); RBC 5.16 Mil/uL (4.40-5.90); RED CELL DISTRIBUTION WIDTH 29.4 % (11.5-14.5); WHITE BLOOD COUNT 10.1 K/uL (4.8-10.8)
[2018-12-23 08:16] LABS: ALBUMIN 3.3 g/dL (3.5-5.0); ALT/SGPT 96 U/L (21-72); AMYLASE 585 U/L (30-110); AST/SGOT 125 U/L (17-59); BLOOD UREA NITROGEN 3 mg/dL (9-20); CALCIUM 8.6 mg/dl (8.6-10.4); GFR NON-AFRICAN AMERICAN > 60
[2018-12-23 08:47] LABS: LIPASE 9048 U/L (23-300)
[2018-12-23] MEDS ORDERED: HYDROmorphone 0.5 mg/0.5 ml ISec IVP PRN (08:55)
[2018-12-23] MEDS: Ferric Sodium Gluconat Complex 62.5 mg/5 ml Vial IVPB SCH (09:56)
[2018-12-23 11:21] LABS: EOS # 0.6 K/uL (0.0-0.7); LYMPH # 1.1 K/uL (1.0-4.3); MONO # 0.5 K/uL (0.0-0.8); NEUT # 7.8 K/uL (1.8-7.0)
--- NOTE | 2018-12-23 11:27 | CP.PCM.PN ---
<Brenda Holguin - Last Filed: 12/23/18 11:25> Subjective - Date & Time of Evaluation Date of Evaluation: 12/23/18 Time of Evaluation: 11:25 - Subjective Subjective: General surgery - Dr. Chaudhry Pt S&ERose MOTA. Pt complains of some increased abdominal pain this morning after drinking juice with a pill. He otherwise states his pain has been about the same and denies any nausea/vomiting/fevers/chills/sob or chest pains. he is aware of plan for surgery tomorrow. Objective - Vital Signs/Intake and Output Vital Signs (last 24 hours): Temp Pulse Resp BP Pulse Ox 98.3 F 93 H 20 148/86 96 12/23/18 07:37 12/23/18 07:37 12/23/18 07:37 12/23/18 07:37 12/23/18 07:37 Intake and Output: 12/23/18 12/23/18 06:59 18:59 Intake Total Output Total Balance - Medications Medications: Current Medications Cyanocobalamin (Vitamin B12 1000 Mcg Tab) 1,000 mcg PO DAILY [facility] Last Admin: 12/23/18 09:56 Dose: 1,000 mcg Ergocalciferol (Drisdol 50,000 Intl Units Cap) 1 cap PO QWK [facility] Last Admin: 12/19/18 09:52 Dose: 1 cap Ferric Sodium Gluconate Complex (Ferrlecit) 125 mg IVPB DAILY [facility] Stop: 12/28/18 10:01 Last Admin: 12/23/18 09:56 Dose: 125 mg Hydromorphone HCl (Dilaudid) 0.5 mg IVP Q3H PRN PRN Reason: Pain, moderate (4-7) Last Admin: 12/23/18 10:04 Dose: 0.5 mg Piperacillin Sod/Tazobactam Sod (Zosyn 3.375 Gm Iv Premix) 3.375 gm in 50 mls @ 100 mls/hr IVPB Q6H [facility]; Protocol Last Admin: 12/23/18 05:32 Dose: 100 mls/hr Lactated Ringer's (Lactated Ringer's) 1,000 mls @ 150 mls/hr IV .Q6H40M [facility] Last Admin: 12/23/18 10:07 Dose: 150 mls/hr Levothyroxine Sodium (Synthroid) 75 mcg PO DAILY@0630 [facility] Last Admin: 12/23/18 06:38 Dose: 75 mcg Ondansetron HCl (Zofran Inj) 4 mg IVP Q4H PRN PRN Reason: Nausea/Vomiting Pantoprazole Sodium (Protonix Inj) 40 mg IVP DAILY [facility] Last Admin: 12/23/18 09:55 Dose: 40 mg Rosuvastatin Calcium (Crestor) 5 mg PO HS [facility] Last Admin: 12/19/18 21:50 Dose: Not Given - Labs Labs: 12/23/18 07:11 12/23/18 07:11 PT 13.1 SECONDS (9.7-12.2) H 12/18/18 21:51 INR 1.2 12/18/18 21:51 APTT 33 SECONDS (21-34) 12/18/18 21:51 - Constitutional Appears: No Acute Distress - Head Exam Head Exam: ATRAUMATIC, NORMAL INSPECTION, NORMOCEPHALIC - Eye Exam Eye Exam: Normal appearance - Respiratory Exam Respiratory Exam: NORMAL BREATHING PATTERN. absent: Respiratory Distress - Cardiovascular Exam Cardiovascular Exam: REGULAR RHYTHM - GI/Abdominal Exam GI & Abdominal Exam: Distended, Guarding, Soft, Tenderness, Rebound. absent: Firm, Rigid Additional comments: diffusely - Neurological Exam Neurological Exam: Alert, Awake - Psychiatric Exam Psychiatric exam: Normal Affect, Normal Mood - Skin Skin Exam: Dry, Intact Assessment and Plan - Assessment and Plan (Free Text) Assessment: 68M w/ Cholecystitis, gallstone pancreatitis Plan: - Continue clear liquid diet, encourage pt to stick with sips and stop if pain occurs - Continue IVF - Contintue IV Abx - Pain control PRN - Plan for cholecystectomy on Monday, NPO after midnight Monday night Further recs per Dr. Isidoro Holguin PGY4 <Mark Chaudhry - Last Filed: 12/23/18 20:44> Objective - Vital Signs/Intake and Output Vital Signs (last 24 hours): Temp Pulse Resp BP Pulse Ox 97.4 F L 78 20 137/79 94 L 12/23/18 16:00 12/23/18 16:00 12/23/18 16:00 12/23/18 16:00 12/23/18 16:00 Intake and Output: 12/23/18 12/24/18 18:59 06:59 Intake Total 1700 Balance 1700 - Medications Medications: Current Medications Cyanocobalamin (Vitamin B12 1000 Mcg Tab) 1,000 mcg PO DAILY [facility] Last Admin: 12/23/18 09:56 Dose: 1,000 mcg Ergocalciferol (Drisdol 50,000 Intl Units Cap) 1 cap PO QWK [facility] Last Admin: 12/19/18 09:52 Dose: 1 cap Ferric Sodium Gluconate Complex (Ferrlecit) 125 mg IVPB DAILY [facility] Stop: 12/28/18 10:01 Last Admin: 12/23/18 09:56 Dose: 125 mg Hydromorphone HCl (Dilaudid) 0.5 mg IVP Q3H PRN PRN Reason: Pain, moderate (4-7) Last Admin: 12/23/18 10:04 Dose: 0.5 mg Piperacillin Sod/Tazobactam Sod (Zosyn 3.375 Gm Iv Premix) 3.375 gm in 50 mls @ 100 mls/hr IVPB Q6H [facility]; Protocol Last Admin: 12/23/18 17:46 Dose: 100 mls/hr Lactated Ringer's (Lactated Ringer's) 1,000 mls @ 150 mls/hr IV .Q6H40M [facility] Last Admin: 12/23/18 14:31 Dose: Not Given Levothyroxine Sodium (Synthroid) 75 mcg PO DAILY@0630 [facility] Last Admin: 12/23/18 06:38 Dose: 75 mcg Ondansetron HCl (Zofran Inj) 4 mg IVP Q4H PRN PRN Reason: Nausea/Vomiting Pantoprazole Sodium (Protonix Inj) 40 mg IVP DAILY [facility] Last Admin: 12/23/18 09:55 Dose: 40 mg Rosuvastatin Calcium (Crestor) 5 mg PO HS [facility] Last Admin: 12/19/18 21:50 Dose: Not Given - Labs Labs: 12/23/18 07:11 12/23/18 07:11 PT 13.1 SECONDS (9.7-12.2) H 12/18/18 21:51 INR 1.2 12/18/18 21:51 APTT 33 SECONDS (21-34) 12/18/18 21:51 Attending/Attestation - Attestation I have fully participated in the care of the patient.: Yes I have reviewed all pertinent clinical information, including history, physical exam and plan: Yes Notes (Text): Pt is stable clinically repeat lipase in am Possible OR for Lap cholecystectomy tomorrow Consent NPO, IVF Plan d.w pt in detail
--- NOTE | 2018-12-23 15:57 | CP.PCM.PN ---
Subjective - Date & Time of Evaluation Date of Evaluation: 12/23/18 Time of Evaluation: 07:45 - Subjective Subjective: clinically same Objective - Vital Signs/Intake and Output Vital Signs (last 24 hours): Temp Pulse Resp BP Pulse Ox 98.3 F 93 H 20 148/86 96 12/23/18 07:37 12/23/18 07:37 12/23/18 07:37 12/23/18 07:37 12/23/18 07:37 Intake and Output: 12/23/18 12/23/18 06:59 18:59 Intake Total 1700 Output Total Balance 1700 - Medications Medications: Current Medications Cyanocobalamin (Vitamin B12 1000 Mcg Tab) 1,000 mcg PO DAILY [facility] Last Admin: 12/23/18 09:56 Dose: 1,000 mcg Ergocalciferol (Drisdol 50,000 Intl Units Cap) 1 cap PO QWK [facility] Last Admin: 12/19/18 09:52 Dose: 1 cap Ferric Sodium Gluconate Complex (Ferrlecit) 125 mg IVPB DAILY [facility] Stop: 12/28/18 10:01 Last Admin: 12/23/18 09:56 Dose: 125 mg Hydromorphone HCl (Dilaudid) 0.5 mg IVP Q3H PRN PRN Reason: Pain, moderate (4-7) Last Admin: 12/23/18 10:04 Dose: 0.5 mg Piperacillin Sod/Tazobactam Sod (Zosyn 3.375 Gm Iv Premix) 3.375 gm in 50 mls @ 100 mls/hr IVPB Q6H [facility]; Protocol Last Admin: 12/23/18 12:19 Dose: 100 mls/hr Lactated Ringer's (Lactated Ringer's) 1,000 mls @ 150 mls/hr IV .Q6H40M [facility] Last Admin: 12/23/18 14:31 Dose: Not Given Levothyroxine Sodium (Synthroid) 75 mcg PO DAILY@0630 [facility] Last Admin: 12/23/18 06:38 Dose: 75 mcg Ondansetron HCl (Zofran Inj) 4 mg IVP Q4H PRN PRN Reason: Nausea/Vomiting Pantoprazole Sodium (Protonix Inj) 40 mg IVP DAILY [facility] Last Admin: 12/23/18 09:55 Dose: 40 mg Rosuvastatin Calcium (Crestor) 5 mg PO HS [facility] Last Admin: 12/19/18 21:50 Dose: Not Given - Labs Labs: 12/23/18 07:11 12/23/18 07:11 PT 13.1 SECONDS (9.7-12.2) H 12/18/18 21:51 INR 1.2 12/18/18 21:51 APTT 33 SECONDS (21-34) 12/18/18 21:51 - Constitutional Appears: Well - Head Exam Head Exam: ATRAUMATIC, NORMAL INSPECTION, NORMOCEPHALIC - Eye Exam Eye Exam: EOMI, Normal appearance, PERRL Pupil Exam: NORMAL ACCOMODATION, PERRL - ENT Exam ENT Exam: Mucous Membranes Moist, Normal Exam - Neck Exam Neck Exam: Full ROM, Normal Inspection. absent: Lymphadenopathy - Respiratory Exam Respiratory Exam: Decreased Breath Sounds - Cardiovascular Exam Cardiovascular Exam: REGULAR RHYTHM, +S1, +S2 - GI/Abdominal Exam GI & Abdominal Exam: Soft, Diminished Bowel Sounds - Rectal Exam Rectal Exam: Deferred Assessment and Plan (1) Abdominal pain Status: Acute (2) Acute pancreatitis Status: Acute (3) Cholecystitis Status: Acute (4) Abrasion of knee, bilateral Status: Acute (5) Dizziness Status: Acute (6) Foreign body in ear Status: Acute (7) Poorly controlled diabetes mellitus Status: Acute (8) Shoulder contusion Status: Acute - Assessment and Plan (Free Text) Plan: Surgery lap cholele for tomorrow blood thinners are on hold npo tonight oiv antibiotic Glucose is so far negative Duplex scan of the upper extremities negative Status post CT which revealed possible cholecystitis Patient also had an abdominal sonogram which revealed gallstones without clear evidence of cystitis Patient also had MRCP which revealed no filling defects within the common bile with gallbladder distention and gallbladder thickening suggest possible gallstone
[2018-12-24] MEDS: Lactated Ringer's 1,000 ML IV SCH ×3 (03:55→17:15)
[2018-12-24] MEDS: Piperacill/Tazo 3.375gm in Dex 3.375 GM/50 ML BAG IVPB SCH ×4 (05:30→23:25)
[2018-12-24] MEDS: Levothyroxine 75 MCG TAB PO SCH (06:21)
--- NOTE | 2018-12-24 07:47 | CP.PCM.PN ---
<Uziel Ryan - Last Filed: 12/24/18 07:44> Subjective - Date & Time of Evaluation Date of Evaluation: 12/24/18 Time of Evaluation: 07:44 - Subjective Subjective: General surgery Note for Dr. Chaudhry Patient seen and examined at bedside. No acute event overnight. He reports his pain is the same today. Denies any nausea/vomiting and fevers/chills. Plan for cholecystectomy this afternoon pending morning labs. Objective - Vital Signs/Intake and Output Vital Signs (last 24 hours): Temp Pulse Resp BP Pulse Ox 98.9 F 89 20 148/86 94 L 12/24/18 00:00 12/24/18 00:00 12/24/18 00:00 12/24/18 00:00 12/24/18 00:00 Intake and Output: 12/24/18 12/24/18 06:59 18:59 Intake Total 1200 Output Total 850 Balance 350 - Medications Medications: Current Medications Cyanocobalamin (Vitamin B12 1000 Mcg Tab) 1,000 mcg PO DAILY [facility] Last Admin: 12/23/18 09:56 Dose: 1,000 mcg Ergocalciferol (Drisdol 50,000 Intl Units Cap) 1 cap PO QWK [facility] Last Admin: 12/19/18 09:52 Dose: 1 cap Ferric Sodium Gluconate Complex (Ferrlecit) 125 mg IVPB DAILY [facility] Stop: 12/28/18 10:01 Last Admin: 12/23/18 09:56 Dose: 125 mg Hydromorphone HCl (Dilaudid) 0.5 mg IVP Q3H PRN PRN Reason: Pain, moderate (4-7) Last Admin: 12/23/18 10:04 Dose: 0.5 mg Piperacillin Sod/Tazobactam Sod (Zosyn 3.375 Gm Iv Premix) 3.375 gm in 50 mls @ 100 mls/hr IVPB Q6H [facility]; Protocol Last Admin: 12/24/18 05:30 Dose: 100 mls/hr Lactated Ringer's (Lactated Ringer's) 1,000 mls @ 150 mls/hr IV .Q6H40M [facility] Last Admin: 12/24/18 05:37 Dose: 150 mls/hr Levothyroxine Sodium (Synthroid) 75 mcg PO DAILY@0630 [facility] Last Admin: 12/24/18 06:21 Dose: Not Given Ondansetron HCl (Zofran Inj) 4 mg IVP Q4H PRN PRN Reason: Nausea/Vomiting Pantoprazole Sodium (Protonix Inj) 40 mg IVP DAILY [facility] Last Admin: 12/23/18 09:55 Dose: 40 mg Rosuvastatin Calcium (Crestor) 5 mg PO HS [facility] Last Admin: 12/19/18 21:50 Dose: Not Given - Labs Labs: 12/23/18 07:11 12/23/18 07:11 PT 13.1 SECONDS (9.7-12.2) H 12/18/18 21:51 INR 1.2 12/18/18 21:51 APTT 33 SECONDS (21-34) 12/18/18 21:51 - Constitutional Appears: No Acute Distress - Head Exam Head Exam: ATRAUMATIC, NORMOCEPHALIC - Eye Exam Eye Exam: EOMI, Normal appearance Pupil Exam: PERRL - ENT Exam ENT Exam: Mucous Membranes Moist - Respiratory Exam Respiratory Exam: NORMAL BREATHING PATTERN - Cardiovascular Exam Cardiovascular Exam: REGULAR RHYTHM - GI/Abdominal Exam GI & Abdominal Exam: Soft, Tenderness (diffusely tender, more at periumbilical) - Extremities Exam Extremities Exam: Normal Capillary Refill. absent: Calf Tenderness Additional comments: LUE edema from IV infiltrating - Back Exam Back Exam: absent: CVA tenderness (L), CVA tenderness (R) - Neurological Exam Neurological Exam: Alert, Awake, Oriented x3 - Psychiatric Exam Psychiatric exam: Normal Affect, Normal Mood - Skin Skin Exam: Dry, Intact, Normal Color, Warm Assessment and Plan - Assessment and Plan (Free Text) Assessment: 68M who presents with Cholecystitis and gallstone pancreatitis Plan: - NPO for OR - Continue IVF - Continue IV Abx - Pain control - f/u LUE doppler for edema - Plan for cholecystectomy today pending morning lab results -Further recommendations per Dr. Isidoro Ryan PGY2 <Mark Chaudhry - Last Filed: 12/31/18 08:08> Objective - Vital Signs/Intake and Output Vital Signs (last 24 hours): Temp Pulse Resp BP Pulse Ox 97.6 F 90 20 120/81 95 12/31/18 07:00 12/31/18 07:00 12/31/18 07:00 12/31/18 07:00 12/31/18 07:00 Intake and Output: 12/31/18 12/31/18 06:59 18:59 Intake Total 900 Output Total 950 Balance -50 - Medications Medications: Current Medications Acetaminophen (Tylenol 325mg Tab) 975 mg PO Q8H [facility] Last Admin: 12/31/18 04:04 Dose: Not Given Benzocaine/Menthol (Cepacol Sore Throat) 1 alex MT Q4 [facility] Last Admin: 12/31/18 04:03 Dose: Not Given Calcium Acetate (Phoslo) 667 mg PO BIDCC [facility] Last Admin: 12/30/18 18:06 Dose: 667 mg Enoxaparin Sodium (Lovenox) 40 mg SC DAILY [facility] Last Admin: 12/30/18 09:52 Dose: 40 mg Piperacillin Sod/Tazobactam Sod (Zosyn 3.375 Gm Iv Premix) 3.375 gm in 50 mls @ 100 mls/hr IVPB Q6H [facility]; Protocol Last Admin: 12/31/18 05:31 Dose: 100 mls/hr Ketorolac Tromethamine (Toradol) 30 mg IVP Q6 PRN PRN Reason: Pain, moderate (4-7) Levothyroxine Sodium (Synthroid) 75 mcg PO DAILY@0630 [facility] Last Admin: 12/31/18 05:31 Dose: 75 mcg Lidocaine (Lidoderm) 1 ea TD DAILY [facility] Last Admin: 12/30/18 09:52 Dose: 1 ea Ondansetron HCl (Zofran Inj) 4 mg IVP Q4H PRN PRN Reason: Nausea/Vomiting Pantoprazole Sodium (Protonix Ec Tab) 40 mg PO DAILY [facility] Last Admin: 12/30/18 09:52 Dose: 40 mg Rosuvastatin Calcium (Crestor) 5 mg PO HS [facility] Last Admin: 12/19/18 21:50 Dose: Not Given - Labs Labs: 12/31/18 06:15 12/31/18 06:15 PT 14.4 SECONDS (9.7-12.2) H 12/24/18 07:10 INR 1.3 12/24/18 07:10 APTT 37 SECONDS (21-34) H 12/24/18 07:10 Attending/Attestation - Attestation I have reviewed all pertinent clinical information, including history, physical exam and plan: Yes
[2018-12-24 07:49] LABS: INR 1.3; PROTHROMBIN TIME 14.4 SECONDS (9.7-12.2)
[2018-12-24 07:56] LABS: ALBUMIN 3.2 g/dL (3.5-5.0); ALT/SGPT 87 U/L (21-72); AMYLASE 146 U/L (30-110); AST/SGOT 68 U/L (17-59); BLOOD UREA NITROGEN 5 mg/dL (9-20); CALCIUM 8.2 mg/dl (8.6-10.4); GFR NON-AFRICAN AMERICAN > 60; LIPASE 191 U/L (23-300)
[2018-12-24 07:57] LABS: MEAN CORPUSCULAR HGB CONC 29.5 g/dL (33.0-37.0); MEAN PLATELET VOLUME 8.5 fL (7.2-11.7)
[2018-12-24 08:03] LABS: MEAN CELL VOLUME 62.5 fL (80.0-94.0); MEAN CORPUSCULAR HEMOGLOBIN 18.5 pg (27.0-31.0); RBC 4.85 Mil/uL (4.40-5.90); RED CELL DISTRIBUTION WIDTH 30.6 % (11.5-14.5); WHITE BLOOD COUNT 10.2 K/uL (4.8-10.8)
--- NOTE | 2018-12-24 08:22 | CP.PCM.PN ---
<Klaudia Soriano - Last Filed: 12/24/18 14:35> Subjective - Date & Time of Evaluation Date of Evaluation: 12/24/18 Time of Evaluation: 08:21 - Subjective Subjective: Medicine Progress Note - Dr Norma Williamson's Service Patient seen and examined at bedside. Patient is doing well, offers no complaints at this time. NPO for the OR this afternoon. Objective - Vital Signs/Intake and Output Vital Signs (last 24 hours): Temp Pulse Resp BP Pulse Ox 97.7 F 90 20 124/73 95 12/24/18 07:00 12/24/18 07:00 12/24/18 07:00 12/24/18 07:00 12/24/18 07:00 Intake and Output: 12/24/18 12/24/18 06:59 18:59 Intake Total 1200 Output Total 850 Balance 350 - Medications Medications: Current Medications Cyanocobalamin (Vitamin B12 1000 Mcg Tab) 1,000 mcg PO DAILY [facility] Last Admin: 12/23/18 09:56 Dose: 1,000 mcg Ergocalciferol (Drisdol 50,000 Intl Units Cap) 1 cap PO QWK [facility] Last Admin: 12/19/18 09:52 Dose: 1 cap Ferric Sodium Gluconate Complex (Ferrlecit) 125 mg IVPB DAILY [facility] Stop: 12/28/18 10:01 Last Admin: 12/23/18 09:56 Dose: 125 mg Hydromorphone HCl (Dilaudid) 0.5 mg IVP Q3H PRN PRN Reason: Pain, moderate (4-7) Last Admin: 12/23/18 10:04 Dose: 0.5 mg Piperacillin Sod/Tazobactam Sod (Zosyn 3.375 Gm Iv Premix) 3.375 gm in 50 mls @ 100 mls/hr IVPB Q6H [facility]; Protocol Last Admin: 12/24/18 05:30 Dose: 100 mls/hr Lactated Ringer's (Lactated Ringer's) 1,000 mls @ 150 mls/hr IV .Q6H40M [facility] Last Admin: 12/24/18 05:37 Dose: 150 mls/hr Levothyroxine Sodium (Synthroid) 75 mcg PO DAILY@0630 [facility] Last Admin: 12/24/18 06:21 Dose: Not Given Ondansetron HCl (Zofran Inj) 4 mg IVP Q4H PRN PRN Reason: Nausea/Vomiting Pantoprazole Sodium (Protonix Inj) 40 mg IVP DAILY [facility] Last Admin: 12/23/18 09:55 Dose: 40 mg Rosuvastatin Calcium (Crestor) 5 mg PO HS [facility] Last Admin: 12/19/18 21:50 Dose: Not Given - Labs Labs: 12/24/18 07:10 12/24/18 07:10 PT 14.4 SECONDS (9.7-12.2) H 12/24/18 07:10 INR 1.3 12/24/18 07:10 APTT 37 SECONDS (21-34) H 12/24/18 07:10 - Constitutional Appears: Non-toxic, No Acute Distress - Head Exam Head Exam: ATRAUMATIC, NORMAL INSPECTION, NORMOCEPHALIC - Eye Exam Eye Exam: EOMI, Normal appearance Pupil Exam: NORMAL ACCOMODATION - ENT Exam ENT Exam: Mucous Membranes Moist - Respiratory Exam Respiratory Exam: Clear to Ausculation Bilateral, NORMAL BREATHING PATTERN. absent: Rales, Rhonchi, Wheezes - Cardiovascular Exam Cardiovascular Exam: REGULAR RHYTHM, +S1, +S2 - GI/Abdominal Exam GI & Abdominal Exam: Guarding, Soft, Tenderness (diffuse), Normal Bowel Sounds. absent: Rigid - Extremities Exam Extremities Exam: Normal Inspection - Back Exam Back Exam: NORMAL INSPECTION - Neurological Exam Neurological Exam: Alert, Awake, Oriented x3 - Psychiatric Exam Psychiatric exam: Normal Affect, Normal Mood - Skin Skin Exam: Dry, Normal Color, Warm Assessment and Plan - Assessment and Plan (Free Text) Assessment: Gallstone Pancreatitis/Cholecystitis -Lipase trending down -MRCP showing no evidence of choledocholithiasis -Zosyn 3.375 mg Q6H IVPB -Pain control : Dilaudid 0.5mg Q3H prn -NPO for OR this afternoon -General surgery on consult, Dr Ac, help appreciated -GI on consult, Dr Mccann, help appreciated Microcytic anemia -Likely due to iron deficiency -On Ferrlecit 125mg IVPB daily -S/P 2 units PRBCs -Monitor H/H daily -Stool occult was negative -Last colonoscopy in 07/2015 showed showed polyps and AVM in Ascending Colon which was treated. -Will likely need outpatient GI follow up for further evaluation History of Hypothyroidism -On synthroid 75mcg PO daily History of Vitamin B12 deficiency -Vitamin B12 >1000 -Will discontinue supplementation at this time History of Vitamin D deficiency -On ergocalciferol 50,000 units weekly -F/U vitamin D level History of hyperlipidemia -On crestor which is currently on hold -Likely held in light of elevated LFTs GI/DVT ppx -Protonix 40mg IVP daily Plan discussed with Dr Mansi Soriano DO PGY-2 <Tristan Williamson - Last Filed: 12/25/18 08:13> Objective - Vital Signs/Intake and Output Vital Signs (last 24 hours): Temp Pulse Resp BP Pulse Ox 98.2 F 66 20 131/70 96 12/25/18 08:04 12/25/18 08:04 12/25/18 08:04 12/25/18 08:04 12/25/18 08:04 Intake and Output: 12/25/18 12/25/18 06:59 18:59 Intake Total 1100 Balance 1100 - Medications Medications: Current Medications Ergocalciferol (Drisdol 50,000 Intl Units Cap) 1 cap PO QWK [facility] Last Admin: 12/19/18 09:52 Dose: 1 cap Ferric Sodium Gluconate Complex (Ferrlecit) 125 mg IVPB DAILY [facility] Stop: 12/28/18 10:01 Last Admin: 12/24/18 09:59 Dose: 125 mg Hydromorphone HCl (Dilaudid) 0.5 mg IVP Q3H PRN PRN Reason: Pain, moderate (4-7) Last Admin: 12/23/18 10:04 Dose: 0.5 mg Piperacillin Sod/Tazobactam Sod (Zosyn 3.375 Gm Iv Premix) 3.375 gm in 50 mls @ 100 mls/hr IVPB Q6H [facility]; Protocol Last Admin: 12/25/18 05:47 Dose: 100 mls/hr Levothyroxine Sodium (Synthroid) 75 mcg PO DAILY@0630 [facility] Last Admin: 12/25/18 05:47 Dose: 75 mcg Ondansetron HCl (Zofran Inj) 4 mg IVP Q4H PRN PRN Reason: Nausea/Vomiting Pantoprazole Sodium (Protonix Inj) 40 mg IVP DAILY [facility] Last Admin: 12/24/18 09:59 Dose: 40 mg Rosuvastatin Calcium (Crestor) 5 mg PO HS [facility] Last Admin: 12/19/18 21:50 Dose: Not Given - Labs Labs: 12/25/18 07:27 12/25/18 07:27 PT 14.4 SECONDS (9.7-12.2) H 12/24/18 07:10 INR 1.3 12/24/18 07:10 APTT 37 SECONDS (21-34) H 12/24/18 07:10 Assessment and Plan (1) Abdominal pain Status: Acute (2) Acute pancreatitis Status: Acute (3) Cholecystitis Status: Acute (4) Abrasion of knee, bilateral Status: Acute (5) Dizziness Status: Acute (6) Foreign body in ear Status: Acute (7) Poorly controlled diabetes mellitus Status: Acute (8) Shoulder contusion Status: Acute Attending/Attestation - Attestation I have personally seen and examined this patient.: Yes I have fully participated in the care of the patient.: Yes I have reviewed all pertinent clinical information, including history, physical exam and plan: Yes Notes (Text): 12/25/18 08:13 case seen and kong staff and resident, concurred with finding and management.. for toñito moss posponmariia ac on [p00one to be done by dr. lester..
[2018-12-24] MEDS: Ferric Sodium Gluconat Complex 62.5 mg/5 ml Vial IVPB SCH (09:59)
[2018-12-24 10:09] LABS: EOS # 0.5 K/uL (0.0-0.7); LYMPH # 1.2 K/uL (1.0-4.3); MONO # 0.6 K/uL (0.0-0.8); NEUT # 7.9 K/uL (1.8-7.0)
--- NOTE | 2018-12-24 13:17 | VASCLAB ---
Date of service: 12/24/2018 PROCEDURE: Left Upper Extremity Venous Duplex Exam HISTORY: Edema, pain PRIORS: None. TECHNIQUE: Left upper extremity, internal jugular, subclavian, axillary, brachial, ulnar, radial, basilic and upper cephalic veins were evaluated. Flow was assessed with color Doppler, compressibility, assessment of phasic flow and augmentation response. Report prepared by Long Cheema, FAB, RVT FINDINGS: LEFT: 1. Internal Jugular: 1.1. Compressibility - Fully compressible: Thrombus - None : Flow - Phasic: Augmentation -Normal: Reflux - None. 2. Subclavian: 2.1. Compressibility - Fully compressible: Thrombus - None : Flow - Phasic: Augmentation -Normal: Reflux - None. 3. Axillary: 3.1. Compressibility - Fully compressible: Thrombus - None : Flow - Phasic: Augmentation -Normal: Reflux - None. 4. Brachial: 4.1. Compressibility - Fully compressible: Thrombus - None: Flow - Phasic: Augmentation -Normal: Reflux - None. 5. Ulnar: 5.1. Compressibility - Fully compressible: Thrombus - None: Flow - Phasic: Augmentation -Normal: Reflux - None. 6. Radial: 6.1. Compressibility - Fully compressible: Thrombus - None: Flow - Phasic: Augmentation - Normal: Reflux - None. 7. Cephalic: (Upper) not visualized at forearm. 7.1. Compressibility - Fully compressible: Thrombus - None: Flow - Phasic: Augmentation -Normal: Reflux - None. 8. Basilic: 8.1. Compressibility - Fully compressible: Thrombus - None: Flow - Phasic: Augmentation -Normal: Reflux - None. OTHER FINDINGS: Normal venous flow noted in the right internal jugular and right subclavian veins. IMPRESSION: Left: No evidence of vein thrombosis of the left upper extremity with excellent venous flow. Normal valve function noted of the left side.
--- NOTE | 2018-12-24 20:07 | CP.PCM.PN ---
Subjective - Date & Time of Evaluation Date of Evaluation: 12/24/18 Time of Evaluation: 07:45 - Subjective Subjective: clinically same Objective - Vital Signs/Intake and Output Vital Signs (last 24 hours): Temp Pulse Resp BP Pulse Ox 97.9 F 89 20 119/62 96 12/24/18 16:00 12/24/18 16:00 12/24/18 16:00 12/24/18 16:00 12/24/18 16:00 - Medications Medications: Current Medications Ergocalciferol (Drisdol 50,000 Intl Units Cap) 1 cap PO QWK [facility] Last Admin: 12/19/18 09:52 Dose: 1 cap Ferric Sodium Gluconate Complex (Ferrlecit) 125 mg IVPB DAILY [facility] Stop: 12/28/18 10:01 Last Admin: 12/24/18 09:59 Dose: 125 mg Hydromorphone HCl (Dilaudid) 0.5 mg IVP Q3H PRN PRN Reason: Pain, moderate (4-7) Last Admin: 12/23/18 10:04 Dose: 0.5 mg Piperacillin Sod/Tazobactam Sod (Zosyn 3.375 Gm Iv Premix) 3.375 gm in 50 mls @ 100 mls/hr IVPB Q6H [facility]; Protocol Last Admin: 12/24/18 17:56 Dose: 100 mls/hr Lactated Ringer's (Lactated Ringer's) 1,000 mls @ 150 mls/hr IV .Q6H40M [facility] Last Admin: 12/24/18 05:37 Dose: 150 mls/hr Levothyroxine Sodium (Synthroid) 75 mcg PO DAILY@0630 [facility] Last Admin: 12/24/18 06:21 Dose: Not Given Ondansetron HCl (Zofran Inj) 4 mg IVP Q4H PRN PRN Reason: Nausea/Vomiting Pantoprazole Sodium (Protonix Inj) 40 mg IVP DAILY [facility] Last Admin: 12/24/18 09:59 Dose: 40 mg Rosuvastatin Calcium (Crestor) 5 mg PO HS [facility] Last Admin: 12/19/18 21:50 Dose: Not Given - Labs Labs: 12/24/18 07:10 12/24/18 07:10 PT 14.4 SECONDS (9.7-12.2) H 12/24/18 07:10 INR 1.3 12/24/18 07:10 APTT 37 SECONDS (21-34) H 12/24/18 07:10 - Constitutional Appears: Well - Head Exam Head Exam: ATRAUMATIC, NORMAL INSPECTION, NORMOCEPHALIC - Eye Exam Eye Exam: EOMI, Normal appearance, PERRL Pupil Exam: NORMAL ACCOMODATION, PERRL - ENT Exam ENT Exam: Mucous Membranes Moist, Normal Exam - Neck Exam Neck Exam: Full ROM, Normal Inspection. absent: Lymphadenopathy - Respiratory Exam Respiratory Exam: Decreased Breath Sounds - Cardiovascular Exam Cardiovascular Exam: REGULAR RHYTHM, +S1, +S2 - GI/Abdominal Exam GI & Abdominal Exam: Soft, Diminished Bowel Sounds - Rectal Exam Rectal Exam: Deferred Assessment and Plan (1) Abdominal pain Status: Acute (2) Acute pancreatitis Status: Acute (3) Cholecystitis Status: Acute (4) Abrasion of knee, bilateral Status: Acute (5) Dizziness Status: Acute (6) Foreign body in ear Status: Acute (7) Poorly controlled diabetes mellitus Status: Acute (8) Shoulder contusion Status: Acute - Assessment and Plan (Free Text) Plan: Assessment and Plan - Assessment and Plan (Free Text) Assessment: Gallstone Pancreatitis/Cholecystitis -Lipase trending down -MRCP showing no evidence of choledocholithiasis -Zosyn 3.375 mg Q6H IVPB -Pain control : Dilaudid 0.5mg Q3H prn -NPO for OR this afternoon -General surgery on consult, Dr Chaudhry, help appreciated -GI on consult, Dr Mccann, help appreciated Microcytic anemia -Likely due to iron deficiency -On Ferrlecit 125mg IVPB daily -S/P 2 units PRBCs -Monitor H/H daily -Stool occult was negative -Last colonoscopy in 07/2015 showed showed polyps and AVM in Ascending Colon which was treated. -Will likely need outpatient GI follow up for further evaluation History of Hypothyroidism -On synthroid 75mcg PO daily History of Vitamin B12 deficiency -Vitamin B12 >1000 -Will discontinue supplementation at this time History of Vitamin D deficiency -On ergocalciferol 50,000 units weekly -F/U vitamin D level History of hyperlipidemia -On crestor which is currently on hold -Likely held in light of elevated LFTs GI/DVT ppx -Protonix 40mg IVP daily
[2018-12-25] MEDS: Lactated Ringer's 1,000 ML IV SCH ×4 (02:50→22:21)
[2018-12-25] MEDS: Piperacill/Tazo 3.375gm in Dex 3.375 GM/50 ML BAG IVPB SCH ×4 (05:47→23:43)
[2018-12-25] MEDS: Levothyroxine 75 MCG TAB PO SCH (05:47)
[2018-12-25 07:41] LABS: MEAN CORPUSCULAR HEMOGLOBIN 19.2 pg (27.0-31.0); MEAN CORPUSCULAR HGB CONC 29.5 g/dL (33.0-37.0); MEAN PLATELET VOLUME 8.5 fL (7.2-11.7); RBC 4.69 Mil/uL (4.40-5.90); RED CELL DISTRIBUTION WIDTH 31.9 % (11.5-14.5)
[2018-12-25 07:42] LABS: MEAN CELL VOLUME 65.2 fL (80.0-94.0)
[2018-12-25 07:58] LABS: ALBUMIN 3.2 g/dL (3.5-5.0); ALT/SGPT 58 U/L (21-72); AMYLASE 55 U/L (30-110); AST/SGOT 36 U/L (17-59); BLOOD UREA NITROGEN 3 mg/dL (9-20); CALCIUM 8.3 mg/dl (8.6-10.4); GFR NON-AFRICAN AMERICAN > 60; LIPASE 119 U/L (23-300)
[2018-12-25 08:47] LABS: LYMPH # 0.9 K/uL (1.0-4.3); MONO # 0.1 K/uL (0.0-0.8); NEUT # 7.5 K/uL (1.8-7.0)
[2018-12-25 08:48] LABS: BASO # 0.1 K/uL (0.0-0.2); EOS # 0.5 K/uL (0.0-0.7)
[2018-12-25] MEDS: Ferric Sodium Gluconat Complex 62.5 mg/5 ml Vial IVPB SCH (10:14)
--- NOTE | 2018-12-25 12:23 | CP.PCM.PN ---
Subjective - Date & Time of Evaluation Date of Evaluation: 12/25/18 Time of Evaluation: 12:23 - Subjective Subjective: Medicine Progress Note - Dr Norma Williamson's service Patient seen and examined at bedside. Per nursing no acute events overnight. Patient is resting comfortably. NPO for OR today. Objective - Vital Signs/Intake and Output Vital Signs (last 24 hours): Temp Pulse Resp BP Pulse Ox 98.2 F 66 20 131/70 96 12/25/18 08:04 12/25/18 08:04 12/25/18 08:04 12/25/18 08:04 12/25/18 08:04 Intake and Output: 12/25/18 12/25/18 06:59 18:59 Intake Total 1100 Balance 1100 - Medications Medications: Current Medications Ergocalciferol (Drisdol 50,000 Intl Units Cap) 1 cap PO QWK [facility] Last Admin: 12/19/18 09:52 Dose: 1 cap Ferric Sodium Gluconate Complex (Ferrlecit) 125 mg IVPB DAILY [facility] Stop: 12/28/18 10:01 Last Admin: 12/25/18 10:14 Dose: 125 mg Hydromorphone HCl (Dilaudid) 0.5 mg IVP Q3H PRN PRN Reason: Pain, moderate (4-7) Last Admin: 12/23/18 10:04 Dose: 0.5 mg Piperacillin Sod/Tazobactam Sod (Zosyn 3.375 Gm Iv Premix) 3.375 gm in 50 mls @ 100 mls/hr IVPB Q6H [facility]; Protocol Last Admin: 12/25/18 11:27 Dose: 100 mls/hr Levothyroxine Sodium (Synthroid) 75 mcg PO DAILY@0630 [facility] Last Admin: 12/25/18 05:47 Dose: 75 mcg Ondansetron HCl (Zofran Inj) 4 mg IVP Q4H PRN PRN Reason: Nausea/Vomiting Pantoprazole Sodium (Protonix Inj) 40 mg IVP DAILY [facility] Last Admin: 12/25/18 10:17 Dose: 40 mg Rosuvastatin Calcium (Crestor) 5 mg PO HS [facility] Last Admin: 12/19/18 21:50 Dose: Not Given - Labs Labs: 12/25/18 07:27 12/25/18 07:27 PT 14.4 SECONDS (9.7-12.2) H 12/24/18 07:10 INR 1.3 12/24/18 07:10 APTT 37 SECONDS (21-34) H 12/24/18 07:10 - Additional Findings Additional findings: - Constitutional Appears: Non-toxic, No Acute Distress - Head Exam Head Exam: ATRAUMATIC, NORMAL INSPECTION, NORMOCEPHALIC - Eye Exam Eye Exam: EOMI, Normal appearance Pupil Exam: NORMAL ACCOMODATION - ENT Exam ENT Exam: Mucous Membranes Moist - Respiratory Exam Respiratory Exam: Clear to Ausculation Bilateral, NORMAL BREATHING PATTERN. absent: Rales, Rhonchi, Wheezes - Cardiovascular Exam Cardiovascular Exam: REGULAR RHYTHM, +S1, +S2 - GI/Abdominal Exam GI & Abdominal Exam: Guarding, Soft, Tenderness (diffuse), Normal Bowel Sounds. absent: Rigid - Extremities Exam Extremities Exam: Normal Inspection - Back Exam Back Exam: NORMAL INSPECTION - Neurological Exam Neurological Exam: Alert, Awake, Oriented x3 - Psychiatric Exam Psychiatric exam: Normal Affect, Normal Mood - Skin Skin Exam: Dry, Normal Color, Warm Assessment and Plan - Assessment and Plan (Free Text) Assessment: Gallstone Pancreatitis/Cholecystitis -Lipase trending down -MRCP showing no evidence of choledocholithiasis -Zosyn 3.375 mg Q6H IVPB -Pain control : Dilaudid 0.5mg Q3H prn -NPO for OR today -General surgery on consult, Dr Chaudhry, help appreciated -GI on consult, Dr Mccann, help appreciated Microcytic anemia -Likely due to iron deficiency -On Ferrlecit 125mg IVPB daily -S/P 2 units PRBCs -Monitor H/H daily -Stool occult was negative -Last colonoscopy in 07/2015 showed showed polyps and AVM in Ascending Colon which was treated. -Will likely need outpatient GI follow up for further evaluation History of Hypothyroidism -On synthroid 75mcg PO daily History of Vitamin B12 deficiency -Vitamin B12 >1000 -Will discontinue supplementation at this time History of Vitamin D deficiency -On ergocalciferol 50,000 units weekly -F/U vitamin D level History of hyperlipidemia -On crestor which is currently on hold -Likely held in light of elevated LFTs GI/DVT ppx -Protonix 40mg IVP daily -SCDS Plan discussed with Dr Norma Soriano DO PGY-2
[2018-12-25] MEDS ORDERED: Propofol 10 mg/ml Inj (20 ML) ONE (12:43)
[2018-12-25] MEDS ORDERED: Midazolam 2 MG/2 ML VIAL ONE (12:43)
--- NOTE | 2018-12-25 14:55 | CP.PCM.PN ---
Subjective - Date & Time of Evaluation Date of Evaluation: 12/25/18 Time of Evaluation: 07:30 - Subjective Subjective: clinically same Objective - Vital Signs/Intake and Output Vital Signs (last 24 hours): Temp Pulse Resp BP Pulse Ox 98.2 F 66 20 131/70 96 12/25/18 08:04 12/25/18 08:04 12/25/18 08:04 12/25/18 08:04 12/25/18 08:04 Intake and Output: 12/25/18 12/25/18 06:59 18:59 Intake Total 1100 900 Balance 1100 900 - Medications Medications: Current Medications Ergocalciferol (Drisdol 50,000 Intl Units Cap) 1 cap PO QWK [facility] Last Admin: 12/19/18 09:52 Dose: 1 cap Ferric Sodium Gluconate Complex (Ferrlecit) 125 mg IVPB DAILY [facility] Stop: 12/28/18 10:01 Last Admin: 12/25/18 10:14 Dose: 125 mg Hydromorphone HCl (Dilaudid) 0.5 mg IVP Q3H PRN PRN Reason: Pain, moderate (4-7) Last Admin: 12/23/18 10:04 Dose: 0.5 mg Piperacillin Sod/Tazobactam Sod (Zosyn 3.375 Gm Iv Premix) 3.375 gm in 50 mls @ 100 mls/hr IVPB Q6H [facility]; Protocol Last Admin: 12/25/18 11:27 Dose: 100 mls/hr Levothyroxine Sodium (Synthroid) 75 mcg PO DAILY@0630 [facility] Last Admin: 12/25/18 05:47 Dose: 75 mcg Ondansetron HCl (Zofran Inj) 4 mg IVP Q4H PRN PRN Reason: Nausea/Vomiting Pantoprazole Sodium (Protonix Inj) 40 mg IVP DAILY [facility] Last Admin: 12/25/18 10:17 Dose: 40 mg Rosuvastatin Calcium (Crestor) 5 mg PO HS [facility] Last Admin: 12/19/18 21:50 Dose: Not Given - Labs Labs: 12/25/18 07:27 12/25/18 07:27 PT 14.4 SECONDS (9.7-12.2) H 12/24/18 07:10 INR 1.3 12/24/18 07:10 APTT 37 SECONDS (21-34) H 12/24/18 07:10 Assessment and Plan (1) Abdominal pain Status: Acute (2) Acute pancreatitis Status: Acute (3) Cholecystitis Status: Acute (4) Abrasion of knee, bilateral Status: Acute (5) Dizziness Status: Acute (6) Foreign body in ear Status: Acute (7) Poorly controlled diabetes mellitus Status: Acute (8) Shoulder contusion Status: Acute
[2018-12-25] MEDS ORDERED: Neostigmine 1:1000 (1 mg/ml) Inj ONE (15:29)
--- NOTE | 2018-12-25 15:53 | PCM.SURG1 ---
Surgeon's Initial Post Op Note - Surgeon's Notes Surgeon: Dr. Bloom Guideman: Dr. Holguin PGY4 Type of Anesthesia: General Endo Anesthesia Administered By: mari Pre-Operative Diagnosis: Gallstone Pancreatitis, Cholecystitis Operative Findings: same Post-Operative Diagnosis: same Operation Performed: Diagnostic Laparoscopy. Exploratory Laparotomy. Lysis of Adhesions. Drainage of Pericholecystic abscess Specimen/Specimens Removed: none Estimated Blood Loss: EBL {In ML}: 200 Blood Products Given: PRBC (1U) Drains Used: Raheem Post-Op Condition: Good Date of Surgery/Procedure: 12/25/18 Time of Surgery/Procedure: 15:54
[2018-12-25] MEDS ORDERED: HYDROmorphone 1 mg/ml ISec IVP PRN (15:58)
[2018-12-25] MEDS: HYDROmorphone 0.5 mg/0.5 ml ISec IVP PRN ×4 (16:10→16:54)
[2018-12-25 17:35] LABS: BASO # 0.1 K/uL (0.0-0.2); BASO % 0.9 % (0.0-2.0); EOS # 0.3 K/uL (0.0-0.7); EOS % 1.9 % (0.0-4.0); HEMOGLOBIN 10.7 g/dL (12.0-18.0); LYMPH # 0.8 K/uL (1.0-4.3); LYMPH % 5.3 % (20.0-40.0); MEAN CELL VOLUME 67.1 fL (80.0-94.0); MEAN CORPUSCULAR HEMOGLOBIN 19.5 pg (27.0-31.0); MEAN CORPUSCULAR HGB CONC 29.1 g/dL (33.0-37.0); MEAN PLATELET VOLUME 8.4 fL (7.2-11.7); MONO # 0.6 K/uL (0.0-0.8); MONO % 3.9 % (0.0-10.0); NEUT # 14.2 K/uL (1.8-7.0); NRBC % 0.1 % (0.0-2.0); PLATELET COUNT 416 K/uL (130-400); RBC 5.48 Mil/uL (4.40-5.90); RED CELL DISTRIBUTION WIDTH 33.2 % (11.5-14.5); WHITE BLOOD COUNT 16.1 K/uL (4.8-10.8)
[2018-12-25 18:03] LABS: ANISOCYTOSIS SLIGHT; BANDS 6 % (0-2); LYMPHOCYTE 4 % (20-40); MICROCYTOSIS SLIGHT; MONOCYTE 1 % (0-10); NEUTROPHIL 89 % (50-75); PLATELET ESTIMATE NORMAL (NORMAL); TOTAL CELLS COUNTED 100
[2018-12-25 18:04] LABS: HYPOCHROMIC SLIGHT; OVALOCYTES SLIGHT; POLYCHROMIC SLIGHT
[2018-12-26] MEDS ORDERED: Acetaminophen IV 1,000 MG in Premixed IV 1 EA IV ONE (00:25)
[2018-12-26] MEDS: Piperacill/Tazo 3.375gm in Dex 3.375 GM/50 ML BAG IVPB SCH ×4 (05:46→22:53)
[2018-12-26] MEDS: Levothyroxine 75 MCG TAB PO SCH (05:48)
[2018-12-26 07:05] VITALS: RESP 20
[2018-12-26 07:27] LABS: BASO # 0.1 K/uL (0.0-0.2); BASO % 1.1 % (0.0-2.0); EOS # 0.3 K/uL (0.0-0.7); EOS % 2.4 % (0.0-4.0); HEMOGLOBIN 10.2 g/dL (12.0-18.0); LYMPH # 0.7 K/uL (1.0-4.3); LYMPH % 6.6 % (20.0-40.0); MEAN CELL VOLUME 67.3 fL (80.0-94.0); MEAN CORPUSCULAR HEMOGLOBIN 20.4 pg (27.0-31.0); MEAN CORPUSCULAR HGB CONC 30.3 g/dL (33.0-37.0); MEAN PLATELET VOLUME 8.7 fL (7.2-11.7); MONO # 0.8 K/uL (0.0-0.8); MONO % 7.5 % (0.0-10.0); NEUT # 8.9 K/uL (1.8-7.0); NEUT % 82.4 % (50.0-75.0); PLATELET COUNT 424 K/uL (130-400); RBC 5.02 Mil/uL (4.40-5.90); RED CELL DISTRIBUTION WIDTH 33.3 % (11.5-14.5); WHITE BLOOD COUNT 10.8 K/uL (4.8-10.8)
[2018-12-26 07:39] LABS: ALT/SGPT 50 U/L (21-72); AST/SGOT 36 U/L (17-59); BLOOD UREA NITROGEN 6 mg/dL (9-20); GFR NON-AFRICAN AMERICAN > 60
[2018-12-26 08:35] LABS: EOSINOPHIL 4 % (0-4); LYMPHOCYTE 2 % (20-40); MONOCYTE 5 % (0-10); NEUTROPHIL 89 % (50-75); TOTAL CELLS COUNTED 100
[2018-12-26 08:36] LABS: ANISOCYTOSIS MODERATE; MICROCYTOSIS MODERATE; PLATELET ESTIMATE SLIGHTLY INCREASED (NORMAL); POLYCHROMIC SLIGHT
[2018-12-26 08:37] LABS: HYPOCHROMIC MODERATE; OVALOCYTES SLIGHT
[2018-12-26] MEDS: Ergocalciferol 50,000 Intl Units Cap PO SCH (09:54)
--- NOTE | 2018-12-26 10:09 | CP.PCM.PN ---
Subjective - Date & Time of Evaluation Date of Evaluation: 12/26/18 Time of Evaluation: 10:08 - Subjective Subjective: Medicine Progress Note - Dr Norma Williamson's service Patient seen and examined at bedside. Per nursing no acute events overnight . Patient complaining of pain. Offers no other complaints at this time. Objective - Vital Signs/Intake and Output Vital Signs (last 24 hours): Temp Pulse Resp BP Pulse Ox 98.2 F 100 H 20 106/67 95 12/26/18 07:00 12/26/18 07:00 12/26/18 07:00 12/26/18 07:00 12/26/18 07:00 Intake and Output: 12/26/18 12/26/18 06:59 18:59 Intake Total 725 1210 Output Total 670 445 Balance 55 765 - Medications Medications: Current Medications Acetaminophen (Tylenol 650 Mg Supp) 650 mg [place] Q6 PRN PRN Reason: Fever >100.4 F Last Admin: 12/26/18 00:38 Dose: 650 mg Ergocalciferol (Drisdol 50,000 Intl Units Cap) 1 cap PO QWK [facility] Last Admin: 12/26/18 09:54 Dose: Not Given Ferric Sodium Gluconate Complex (Ferrlecit) 125 mg IVPB DAILY [facility] Stop: 12/28/18 10:01 Last Admin: 12/25/18 10:14 Dose: 125 mg Hydromorphone/Sodium Chloride (Dilaudid Pediatric Radiologist) 6 mg IV Q4H PRN; Protocol PRN Reason: Pain, moderate (4-7) Last Admin: 12/25/18 19:48 Dose: 6 mg Piperacillin Sod/Tazobactam Sod (Zosyn 3.375 Gm Iv Premix) 3.375 gm in 50 mls @ 100 mls/hr IVPB Q6H [facility]; Protocol Last Admin: 12/26/18 05:46 Dose: 100 mls/hr Levothyroxine Sodium (Synthroid) 75 mcg PO DAILY@0630 [facility] Last Admin: 12/26/18 05:48 Dose: Not Given Ondansetron HCl (Zofran Inj) 4 mg IVP Q4H PRN PRN Reason: Nausea/Vomiting Pantoprazole Sodium (Protonix Inj) 40 mg IVP DAILY [facility] Last Admin: 12/25/18 10:17 Dose: 40 mg Rosuvastatin Calcium (Crestor) 5 mg PO HS [facility] Last Admin: 12/19/18 21:50 Dose: Not Given - Labs Labs: 12/26/18 07:03 12/26/18 07:03 PT 14.4 SECONDS (9.7-12.2) H 12/24/18 07:10 INR 1.3 12/24/18 07:10 APTT 37 SECONDS (21-34) H 12/24/18 07:10 - Constitutional Appears: Non-toxic, No Acute Distress - Head Exam Head Exam: ATRAUMATIC, NORMAL INSPECTION, NORMOCEPHALIC - Eye Exam Eye Exam: EOMI, Normal appearance - ENT Exam ENT Exam: Mucous Membranes Moist - Respiratory Exam Respiratory Exam: Clear to Ausculation Bilateral, NORMAL BREATHING PATTERN - Cardiovascular Exam Cardiovascular Exam: REGULAR RHYTHM, +S1, +S2 - GI/Abdominal Exam GI & Abdominal Exam: Soft, Tenderness Additional comments: +JEREMY drain with sanginous drainage - Extremities Exam Extremities Exam: Normal Inspection - Neurological Exam Neurological Exam: Alert, Awake, Oriented x3 Assessment and Plan - Assessment and Plan (Free Text) Assessment: Gallstone Pancreatitis/Cholecystitis -S/P open cholecystectomy -NGT removed, patient remains NPO -Lipase trending down -MRCP showing no evidence of choledocholithiasis -Zosyn 3.375 mg Q6H IVPB -Pain control : Dilaudid 6mg Q4H prn pain -General surgery on consult, Dr Chaudhry, help appreciated -GI on consult, Dr Mccann, help appreciated Microcytic anemia -Likely due to iron deficiency -On Ferrlecit 125mg IVPB daily -S/P 2 units PRBCs -Monitor H/H daily -Stool occult was negative -Last colonoscopy in 07/2015 showed showed polyps and AVM in Ascending Colon which was treated. -Will likely need outpatient GI follow up for further evaluation History of Hypothyroidism -On synthroid 75mcg PO daily History of Vitamin B12 deficiency -Vitamin B12 >1000 -Will discontinue supplementation at this time History of Vitamin D deficiency -On ergocalciferol 50,000 units weekly (discontinued) History of hyperlipidemia -On crestor which is currently on hold -Likely held in light of elevated LFTs GI/DVT ppx -Protonix 40mg IVP daily -SCDS Plan discussed with Dr Norma Soriano DO PGY-2
--- NOTE | 2018-12-26 10:43 | RAD ---
HISTORY: NGT placement COMPARISON: Chest x-ray performed 12/19/18 TECHNIQUE: Chest, one view. FINDINGS: Examination markedly limited by hypoinflation. Nasogastric tube extends expected location of the stomach. LUNGS: No focal consolidation. Probable prominent vessel on end versus calcified granuloma within the medial left midlung zone. Please note that chest x-ray has limited sensitivity for the detection of pulmonary masses. PLEURA: No significant pleural effusion identified. No definite pneumothorax . CARDIOVASCULAR: Borderline cardiomegaly. Atherosclerotic calcifications of the aorta. OSSEOUS STRUCTURES: Degenerative changes. VISUALIZED UPPER ABDOMEN: Surgical james and drainage catheter noted within the right upper quadrant, partially imaged. OTHER FINDINGS: None. IMPRESSION: Marked hypoinflation. 5 mm probable calcification versus prominent vessel on end within the medial left mid lung zone. Atherosclerotic calcifications of an ectatic aorta. Borderline cardiomegaly. Nasogastric tube extends expected location of the stomach. Partially imaged drainage catheter and surgical james noted in the right upper quadrant.
[2018-12-26] MEDS: Ferric Sodium Gluconat Complex 62.5 mg/5 ml Vial IVPB SCH (10:44)
--- NOTE | 2018-12-26 11:28 | CP.PCM.PN ---
Subjective - Date & Time of Evaluation Date of Evaluation: 12/26/18 Time of Evaluation: 11:19 - Subjective Subjective: General Surgery Dr. Bloom (covering Dr. Chaudhry) Pt seen and examined @bedside. Pt went to the OR yesterday for laparoscopic, converted to open, cholecystectomy. Abscess was encountered surrounding the gallbladder, making removal unsafe. Drain was placed for source control and incision closed. Pt hypoxic w/ SaO2 88% and febrile (Tmax 101) overnight. Placed on NRB. Pt c/o burning pain this morning. denies CP, SOB, N/V. NPO w/ NGT in place. (-)BM/Flatus NGT 35cc, bilious x24hr Raheem 150cc serosang x24hrs Objective - Vital Signs/Intake and Output Vital Signs (last 24 hours): Temp Pulse Resp BP Pulse Ox 98.2 F 100 H 20 106/67 95 12/26/18 07:00 12/26/18 07:00 12/26/18 07:00 12/26/18 07:00 12/26/18 07:00 Intake and Output: 12/26/18 12/26/18 06:59 18:59 Intake Total 725 1210 Output Total 670 445 Balance 55 765 - Medications Medications: Current Medications Acetaminophen (Tylenol 650 Mg Supp) 650 mg [place] Q6 PRN PRN Reason: Fever >100.4 F Last Admin: 12/26/18 00:38 Dose: 650 mg Ergocalciferol (Drisdol 50,000 Intl Units Cap) 1 cap PO QWK [facility] Last Admin: 12/26/18 09:54 Dose: Not Given Ferric Sodium Gluconate Complex (Ferrlecit) 125 mg IVPB DAILY [facility] Stop: 12/28/18 10:01 Last Admin: 12/26/18 10:44 Dose: 125 mg Hydromorphone/Sodium Chloride (Dilaudid Electronic Systems Security Assessment) 6 mg IV Q4H PRN; Protocol PRN Reason: Pain, moderate (4-7) Last Admin: 12/25/18 19:48 Dose: 6 mg Piperacillin Sod/Tazobactam Sod (Zosyn 3.375 Gm Iv Premix) 3.375 gm in 50 mls @ 100 mls/hr IVPB Q6H [facility]; Protocol Last Admin: 12/26/18 05:46 Dose: 100 mls/hr Levothyroxine Sodium (Synthroid) 75 mcg PO DAILY@0630 [facility] Last Admin: 12/26/18 05:48 Dose: Not Given Ondansetron HCl (Zofran Inj) 4 mg IVP Q4H PRN PRN Reason: Nausea/Vomiting Pantoprazole Sodium (Protonix Inj) 40 mg IVP DAILY [facility] Last Admin: 12/26/18 10:45 Dose: 40 mg Rosuvastatin Calcium (Crestor) 5 mg PO HS [facility] Last Admin: 12/19/18 21:50 Dose: Not Given - Labs Labs: 12/26/18 07:03 12/26/18 07:03 PT 14.4 SECONDS (9.7-12.2) H 12/24/18 07:10 INR 1.3 12/24/18 07:10 APTT 37 SECONDS (21-34) H 12/24/18 07:10 - Constitutional Appears: Non-toxic, No Acute Distress - Head Exam Head Exam: NORMAL INSPECTION - Eye Exam Eye Exam: Normal appearance - ENT Exam ENT Exam: Mucous Membranes Moist - Respiratory Exam Respiratory Exam: NORMAL BREATHING PATTERN. absent: Accessory Muscle Use, Respiratory Distress - Cardiovascular Exam Cardiovascular Exam: Tachycardia, REGULAR RHYTHM. absent: Bradycardia - GI/Abdominal Exam GI & Abdominal Exam: Distended (mild), Soft, Tenderness (vinay-incisional TTP). absent: Firm, Guarding, Rebound Additional comments: Monica dressing stained though dry and intact raheem dry in place - Extremities Exam Extremities Exam: Normal Inspection - Neurological Exam Neurological Exam: Alert, Awake, Oriented x3 - Psychiatric Exam Psychiatric exam: Normal Affect, Normal Mood - Skin Skin Exam: Dry, Normal Color, Warm Assessment and Plan - Assessment and Plan (Free Text) Assessment: 68 y/o M POD#1 s/p ex-lap, drainage of pericholecystic abscess Plan: - cont IV Abx - d/c NGT - maintain NPO status - monitor bowel fxn - monitor drain output - cont pain management - wean supplemental O2 - encourage OOB to chair/Amb/IS use - DVT/GI PPx Pt discussed w/ Dr. Wolf Juarez DO PGY3
[2018-12-26] MEDS: Potassium Ch 20mEq in D5-1/2NS 1,000 ML IV SCH ×2 (13:42→22:30)
--- NOTE | 2018-12-26 14:17 | CP.PCM.PN ---
Subjective - Date & Time of Evaluation Date of Evaluation: 12/26/18 Time of Evaluation: 07:15 - Subjective Subjective: clinically same Objective - Vital Signs/Intake and Output Vital Signs (last 24 hours): Temp Pulse Resp BP Pulse Ox 98.2 F 100 H 20 106/67 95 12/26/18 07:00 12/26/18 07:00 12/26/18 07:00 12/26/18 07:00 12/26/18 07:00 Intake and Output: 12/26/18 12/26/18 06:59 18:59 Intake Total 725 1210 Output Total 670 445 Balance 55 765 - Medications Medications: Current Medications Acetaminophen (Tylenol 650 Mg Supp) 650 mg [place] Q6 PRN PRN Reason: Fever >100.4 F Last Admin: 12/26/18 00:38 Dose: 650 mg Ferric Sodium Gluconate Complex (Ferrlecit) 125 mg IVPB DAILY [facility] [place] Stop: 12/28/18 10:01 Last Admin: 12/26/18 10:44 Dose: 125 mg Hydromorphone/Sodium Chloride (Dilaudid Vehicle Delivery Worker) 6 mg IV Q4H PRN; Protocol PRN Reason: Pain, moderate (4-7) Last Admin: 12/25/18 19:48 Dose: 6 mg Piperacillin Sod/Tazobactam Sod (Zosyn 3.375 Gm Iv Premix) 3.375 gm in 50 mls @ 100 mls/hr IVPB Q6H [facility]; Protocol Last Admin: 12/26/18 11:55 Dose: 100 mls/hr Potassium Chloride/Dextrose/Sod Cl (Potassium Chl 20 Meq In D5-1/2ns) 1,000 mls @ 100 mls/hr IV .Q10H [facility] Last Admin: 12/26/18 13:42 Dose: 100 mls/hr Levothyroxine Sodium (Synthroid) 75 mcg PO DAILY@0630 [facility] Last Admin: 12/26/18 05:48 Dose: Not Given Ondansetron HCl (Zofran Inj) 4 mg IVP Q4H PRN PRN Reason: Nausea/Vomiting Pantoprazole Sodium (Protonix Inj) 40 mg IVP DAILY [facility] [place] Last Admin: 12/26/18 10:45 Dose: 40 mg Rosuvastatin Calcium (Crestor) 5 mg PO HS [facility] Last Admin: 03/06/19 21:50 Dose: Not Given - Labs Labs: 12/26/18 07:03 12/26/18 07:03 PT 14.4 SECONDS (9.7-12.2) H 12/24/18 07:10 INR 1.3 12/24/18 07:10 APTT 37 SECONDS (21-34) H 12/24/18 07:10 - Constitutional Appears: Well - Head Exam Head Exam: ATRAUMATIC, NORMAL INSPECTION, NORMOCEPHALIC - Eye Exam Eye Exam: EOMI, Normal appearance, PERRL Pupil Exam: NORMAL ACCOMODATION, PERRL - ENT Exam ENT Exam: Mucous Membranes Moist, Normal Exam - Neck Exam Neck Exam: Full ROM, Normal Inspection. absent: Lymphadenopathy - Respiratory Exam Respiratory Exam: Decreased Breath Sounds - Cardiovascular Exam Cardiovascular Exam: REGULAR RHYTHM, +S1, +S2 - GI/Abdominal Exam GI & Abdominal Exam: Soft, Diminished Bowel Sounds - Rectal Exam Rectal Exam: Deferred Assessment and Plan (1) Abdominal pain Status: Acute (2) Acute pancreatitis Status: Acute (3) Cholecystitis Status: Acute (4) Abrasion of knee, bilateral Status: Acute (5) Dizziness Status: Acute (6) Foreign body in ear Status: Acute (7) Poorly controlled diabetes mellitus Status: Acute (8) Shoulder contusion Status: Acute
[2018-12-27] MEDS: Potassium Ch 20mEq in D5-1/2NS 1,000 ML IV SCH ×3 (01:30→18:50)
[2018-12-27] MEDS: Piperacill/Tazo 3.375gm in Dex 3.375 GM/50 ML BAG IVPB SCH ×3 (05:10→17:22)
[2018-12-27] MEDS: Levothyroxine 75 MCG TAB PO SCH (05:47)
[2018-12-27 07:28] LABS: ALB/GLOB RATIO 0.9 (1.0-2.1); ALBUMIN 2.8 g/dL (3.5-5.0); ALT/SGPT 33 U/L (21-72); AST/SGOT 23 U/L (17-59); BLOOD UREA NITROGEN 7 mg/dL (9-20); CALCIUM 7.9 mg/dl (8.6-10.4); GFR NON-AFRICAN AMERICAN > 60
[2018-12-27 07:36] LABS: BASO # 0.1 K/uL (0.0-0.2); BASO % 1.2 % (0.0-2.0); EOS # 0.6 K/uL (0.0-0.7); EOS % 5.7 % (0.0-4.0); HEMOGLOBIN 9.4 g/dL (12.0-18.0); LYMPH % 9.1 % (20.0-40.0); MEAN CELL VOLUME 68.9 fL (80.0-94.0); MEAN CORPUSCULAR HEMOGLOBIN 20.2 pg (27.0-31.0); MEAN CORPUSCULAR HGB CONC 29.4 g/dL (33.0-37.0); MEAN PLATELET VOLUME 8.4 fL (7.2-11.7); MONO # 0.8 K/uL (0.0-0.8); MONO % 6.8 % (0.0-10.0); NEUT # 8.5 K/uL (1.8-7.0); NEUT % 77.2 % (50.0-75.0); PLATELET COUNT 350 K/uL (130-400); RBC 4.63 Mil/uL (4.40-5.90); RED CELL DISTRIBUTION WIDTH 34.2 % (11.5-14.5)
--- NOTE | 2018-12-27 08:15 | CP.PCM.PN ---
Subjective - Date & Time of Evaluation Date of Evaluation: 12/27/18 Time of Evaluation: 08:15 - Subjective Subjective: Surgical Progress Note for Dr. Bloom, covering for Dr. Chaudhry Patient seen and examined at bedside. Patient is post op day 2 from laparoscopic, converted to open surgery. Cholecystectomy was planned however removal was unsafe when noted to have abscess around the gallbladder. Patient complains of mild pain to surgical site, denies bowel movement or flatus. NGT removed yesterday. Raheem 40cc x24 hrs serosanguineous Objective - Vital Signs/Intake and Output Vital Signs (last 24 hours): Temp Pulse Resp BP Pulse Ox 99 F 102 H 20 120/82 94 L 12/27/18 06:04 12/27/18 00:00 12/27/18 00:00 12/27/18 00:00 12/27/18 00:00 Intake and Output: 12/27/18 12/27/18 06:59 18:59 Intake Total 1950 Output Total 440 Balance 1510 - Medications Medications: Current Medications Acetaminophen (Tylenol 650 Mg Supp) 650 mg [place] Q6 PRN PRN Reason: Fever >100.4 F Last Admin: 12/26/18 00:38 Dose: 650 mg Ferric Sodium Gluconate Complex (Ferrlecit) 125 mg IVPB DAILY [facility] Stop: 12/28/18 10:01 Last Admin: 12/26/18 10:44 Dose: 125 mg Hydromorphone/Sodium Chloride (Dilaudid Regional Economic Liaison) 6 mg IV Q4H PRN; Protocol PRN Reason: Pain, moderate (4-7) Last Admin: 12/25/18 19:48 Dose: 6 mg Piperacillin Sod/Tazobactam Sod (Zosyn 3.375 Gm Iv Premix) 3.375 gm in 50 mls @ 100 mls/hr IVPB Q6H [facility]; Protocol Last Admin: 12/27/18 05:10 Dose: 100 mls/hr Potassium Chloride/Dextrose/Sod Cl (Potassium Chl 20 Meq In D5-1/2ns) 1,000 mls @ 100 mls/hr IV .Q10H [facility] Last Admin: 12/27/18 07:54 Dose: 100 mls/hr Levothyroxine Sodium (Synthroid) 75 mcg PO DAILY@0630 [facility] Last Admin: 12/27/18 05:47 Dose: Not Given Ondansetron HCl (Zofran Inj) 4 mg IVP Q4H PRN PRN Reason: Nausea/Vomiting Pantoprazole Sodium (Protonix Inj) 40 mg IVP DAILY [facility] Last Admin: 12/26/18 10:45 Dose: 40 mg Rosuvastatin Calcium (Crestor) 5 mg PO HS [facility] Last Admin: 12/19/18 21:50 Dose: Not Given - Labs Labs: 12/27/18 06:26 12/27/18 06:26 PT 14.4 SECONDS (9.7-12.2) H 12/24/18 07:10 INR 1.3 12/24/18 07:10 APTT 37 SECONDS (21-34) H 12/24/18 07:10 - Constitutional Appears: Non-toxic, No Acute Distress - Head Exam Head Exam: ATRAUMATIC, NORMOCEPHALIC - Eye Exam Eye Exam: EOMI, PERRL - ENT Exam ENT Exam: Mucous Membranes Moist - Neck Exam Neck Exam: Full ROM - Respiratory Exam Respiratory Exam: NORMAL BREATHING PATTERN - Cardiovascular Exam Cardiovascular Exam: REGULAR RHYTHM, +S1, +S2 - GI/Abdominal Exam GI & Abdominal Exam: Distended (Mildly), Tenderness (around incision site). absent: Firm, Guarding, Rigid Additional comments: Raheem in place with serosanguineous output Dressing removed with no dehiscence noted - Extremities Exam Extremities Exam: absent: Calf Tenderness, Pedal Edema - Neurological Exam Neurological Exam: Alert, Awake, Oriented x3 - Skin Skin Exam: Intact, Warm Assessment and Plan - Assessment and Plan (Free Text) Assessment: 68 year old male POD 2 status post ex-lap, drainage of pericholecystic abscess Plan: Advance to clear liquid diet Monitor bowel function Continue pain management Encourage out of bed to chair, ambulate, incentive spirometer use Cepacol losenges Q4 Chloé Burgos, PGY1
[2018-12-27 08:29] LABS: ANISOCYTOSIS MODERATE; EOSINOPHIL 5 % (0-4); LYMPHOCYTE 4 % (20-40); MONOCYTE 6 % (0-10); NEUTROPHIL 85 % (50-75); PLATELET ESTIMATE NORMAL (NORMAL); TOTAL CELLS COUNTED 100
[2018-12-27 08:30] LABS: HYPOCHROMIC MODERATE; MICROCYTOSIS MODERATE; POLYCHROMIC SLIGHT
[2018-12-27 08:31] LABS: OVALOCYTES SLIGHT
[2018-12-27] MEDS: Benzocaine/Menthol (Cepacol) Lozenge MT SCH ×4 (08:41→20:00)
[2018-12-27] MEDS: Ferric Sodium Gluconat Complex 62.5 mg/5 ml Vial IVPB SCH (09:59)
[2018-12-27] MEDS: Enoxaparin 40 mg Syringe SC SCH (09:59)
[2018-12-27] MEDS: Lidocaine 5% Patch TD SCH (10:00)
--- NOTE | 2018-12-27 11:36 | CP.PCM.PN ---
"Subjective - Date & Time of Evaluation Date of Evaluation: 12/27/18 Time of Evaluation: 11:34 - Subjective Subjective: Medicine Progress Note - Dr Norma Williamson's service Patient seen and examined at bedside. No overnight events reported. Patient reports fever overnight and abdominal pain at the incision site worse with inspiration. He denies any chest pain, SOB, nausea or vomiting. Patient reports no bowel movements or flatus. Objective - Vital Signs/Intake and Output Vital Signs (last 24 hours): Temp Pulse Resp BP Pulse Ox 98.0 F 99 H 20 122/76 95 12/27/18 07:00 12/27/18 07:00 12/27/18 07:00 12/27/18 07:00 12/27/18 07:00 Intake and Output: 12/27/18 12/27/18 06:59 18:59 Intake Total 1950 Output Total 440 Balance 1510 - Medications Medications: Current Medications Acetaminophen (Tylenol 325mg Tab) 975 mg PO Q8H [facility] Benzocaine/Menthol (Cepacol Sore Throat) 1 alex MT Q4 [facility] Last Admin: 12/27/18 08:41 Dose: 1 alex Calcium Acetate (Phoslo) 667 mg PO BIDCC [facility] Celecoxib (Celebrex) 200 mg PO DAILY [facility] Last Admin: 12/27/18 10:21 Dose: 200 mg Enoxaparin Sodium (Lovenox) 40 mg SC DAILY [facility] Last Admin: 12/27/18 09:59 Dose: 40 mg Ferric Sodium Gluconate Complex (Ferrlecit) 125 mg IVPB DAILY [facility] Stop: 12/28/18 10:01 Last Admin: 12/27/18 09:59 Dose: 125 mg Hydromorphone/Sodium Chloride (Dilaudid X Ray Equipment Tester) 6 mg IV Q4H PRN; Protocol PRN Reason: Pain, moderate (4-7) Last Admin: 12/27/18 10:21 Dose: 6 mg Piperacillin Sod/Tazobactam Sod (Zosyn 3.375 Gm Iv Premix) 3.375 gm in 50 mls @ 100 mls/hr IVPB Q6H [facility]; Protocol Last Admin: 12/27/18 11:19 Dose: 100 mls/hr Potassium Chloride/Dextrose/Sod Cl (Potassium Chl 20 Meq In D5-1/2ns) 1,000 mls @ 100 mls/hr IV .Q10H [facility] Last Admin: 12/27/18 07:54 Dose: 100 mls/hr Levothyroxine Sodium (Synthroid) 75 mcg PO DAILY@0630 [facility] Last Admin: 12/27/18 05:47 Dose: Not Given Lidocaine (Lidoderm) 1 ea TD DAILY [facility] Last Admin: 12/27/18 10:00 Dose: 1 ea Ondansetron HCl (Zofran Inj) 4 mg IVP Q4H PRN PRN Reason: Nausea/Vomiting Pantoprazole Sodium (Protonix Inj) 40 mg IVP DAILY [facility] Last Admin: 12/27/18 09:59 Dose: 40 mg Rosuvastatin Calcium (Crestor) 5 mg PO HS [facility] Last Admin: 12/19/18 21:50 Dose: Not Given - Labs Labs: 12/27/18 06:26 12/27/18 06:26 PT 14.4 SECONDS (9.7-12.2) H 12/24/18 07:10 INR 1.3 12/24/18 07:10 APTT 37 SECONDS (21-34) H 12/24/18 07:10 - Additional Findings Additional findings: - Constitutional Appears: Non-toxic, No Acute Distress - Head Exam Head Exam: ATRAUMATIC, NORMOCEPHALIC - Eye Exam Eye Exam: EOMI, PERRL - ENT Exam ENT Exam: Mucous Membranes Moist - Neck Exam Neck Exam: Full ROM - Respiratory Exam Respiratory Exam: NORMAL BREATHING PATTERN - Cardiovascular Exam Cardiovascular Exam: REGULAR RHYTHM, +S1, +S2 - GI/Abdominal Exam GI & Abdominal Exam: Distended (Mildly), Tenderness (around incision site). absent: Firm, Guarding, Rigid Additional comments: Raheem in place with serosanguineous output - Extremities Exam Extremities Exam: absent: Calf Tenderness, Pedal Edema - Neurological Exam Neurological Exam: Alert, Awake, Oriented x3 - Skin Skin Exam: Intact, Warm Assessment and Plan - Assessment and Plan (Free Text) Assessment: 68 year old male with a PMHx of HLD, Diabetes, Diverticulosis, Hemorrhoids, and hypothyroidism admitted for evaluation and treatment of gallstone pancreatitis and acute cholecystitis. s/p lap Chol that was converted into ex-lap. Found to have a pericholecystic abscess. Drain was placed. Cholecystectomy postponed. Plan: Gallstone Pancreatitis. Abd/Pelvis CT (Admission): shows pancreatitis and cholecystitis. Abdomen US (Admission): Free Fluid in Liver, Fatty Liver, GB Stones and Sludge, Slightly dilated hepatic ducts, dilated CBD, Normal Kidneys/Spleen. Limi roe view of pancreas. Consults: GI (Dr. Mccann) | Surgery (Dr. Chaudhry) Lipid Panel: Shows low HDL, the rest is WNL. Mgmt: Clear Liquid Diet | D5 in 1/2 NS @ 100mls/hr Dilauded 0.5mg Q3H IVP Serial Abdominal Exams. Acute Cholecystitis/Pericholecystic Abscess. Post-Operative Day # 2 status post ex-lap, drainage of pericholecystic abscess. Abd/Pelvis CT (Admission): shows pancreatitis and cholecystitis. Abdomen US (Admission): Free Fluid in Liver, Fatty Liver, GB Stones and Sludge , Slightly dilated hepatic ducts, dilated CBD, Normal Kidneys/Spleen. Limited view of pancreas. MRCP of Abdomen: No filling defect. Consults: Surgery (Dr. Chaudhry) Advance to Clear Liquid Diet. Monitor Bowel Function. Encourage Bed to Chair, ambulation, and incentive spirometer use. Cepacol losenges. Mgmt: Clear Liquid Diet | D5 in 1/2 NS @ 100mls/hr Zosyn 3.375 IVP Q6H Dilauded 0.2mg/ml COMPUTER ARCHITECT. 6mg IV Q4H PRN Zofran PRN Tylenol PRN Iron Def. Anemia. Likely Iron Deficiency. HgB - 7.0 on Admission Has had GI Bleed in the past. Colonscopy (07/27/15) showed polyps and AVM in Ascending Colon which was treated. Anemia Workup SHows Low Iron and Elevated Haptoglobin. | Stool Occult Blood #1 - NEGATIVE. Monitor S/P Two Units of PRBCs on Admission Mgmt: Ferrlicet 125mg IV Daily. Electrolyte Abnormalities. (Hypocalcemia, Hypophosphatemia) Replenish PRN Mgmt: Phoslo 667mg PO BIDCC Blood in Stool Likely 2/2 to Hemorrhoids. Stool Occult Blood NEGATIVE Will cont. to monitor HgB. Thrombocytosis (Resolved) Likely Reactive Thrombocytosis 2/2 to Iron Def. Anemia vs Cholecystitis Will Cont. to Monitor. Diabetes Hold Home Meds until patient is not NPO Will start ISS once patient is not NPO Hypothyroidism Mgmt: Home Synthroid 75mcg HLD Mgmt: Crestor 5 HS (HELD) Proph VTE proph Contraindicated SCD's Protonix IV Daily Dispo: Currently with JEREMY Drain with SeroSanguinous Fluid. Will F/U with Surgery regarding plan. Patient discussed with Attending (Dr. Oj Williamson) Milagros Agosto, PGY-2"
--- NOTE | 2018-12-27 17:32 | CP.PCM.PN ---
Subjective - Date & Time of Evaluation Date of Evaluation: 12/27/18 Time of Evaluation: 07:30 - Subjective Subjective: clinically same Objective - Vital Signs/Intake and Output Vital Signs (last 24 hours): Temp Pulse Resp BP Pulse Ox 97.4 F L 83 20 114/68 95 12/27/18 16:00 12/27/18 16:00 12/27/18 16:00 12/27/18 16:00 12/27/18 16:00 Intake and Output: 12/27/18 12/27/18 06:59 18:59 Intake Total 1950 1100 Output Total 440 410 Balance 1510 690 - Medications Medications: Current Medications Acetaminophen (Tylenol 325mg Tab) 975 mg PO Q8H [facility] Last Admin: 12/27/18 13:29 Dose: Not Given Benzocaine/Menthol (Cepacol Sore Throat) 1 alex MT Q4 [facility] Last Admin: 12/27/18 12:27 Dose: 1 alex Calcium Acetate (Phoslo) 667 mg PO BIDCC [facility] Last Admin: 12/27/18 17:22 Dose: 667 mg Celecoxib (Celebrex) 200 mg PO DAILY [facility] Last Admin: 12/27/18 10:21 Dose: 200 mg Enoxaparin Sodium (Lovenox) 40 mg SC DAILY [facility] Last Admin: 12/27/18 09:59 Dose: 40 mg Ferric Sodium Gluconate Complex (Ferrlecit) 125 mg IVPB DAILY [facility] Stop: 12/28/18 10:01 Last Admin: 12/27/18 09:59 Dose: 125 mg Hydromorphone/Sodium Chloride (Dilaudid Laboratory Apparatus Glass Grinder) 6 mg IV Q4H PRN; Protocol PRN Reason: Pain, moderate (4-7) Last Admin: 12/27/18 10:21 Dose: 6 mg Piperacillin Sod/Tazobactam Sod (Zosyn 3.375 Gm Iv Premix) 3.375 gm in 50 mls @ 100 mls/hr IVPB Q6H [facility]; Protocol Last Admin: 12/27/18 17:22 Dose: 100 mls/hr Potassium Chloride/Dextrose/Sod Cl (Potassium Chl 20 Meq In D5-1/2ns) 1,000 mls @ 100 mls/hr IV .Q10H [facility] Last Admin: 12/27/18 07:54 Dose: 100 mls/hr Levothyroxine Sodium (Synthroid) 75 mcg PO DAILY@0630 [facility] Last Admin: 12/27/18 05:47 Dose: Not Given Lidocaine (Lidoderm) 1 ea TD DAILY [facility] Last Admin: 12/27/18 10:00 Dose: 1 ea Ondansetron HCl (Zofran Inj) 4 mg IVP Q4H PRN PRN Reason: Nausea/Vomiting Pantoprazole Sodium (Protonix Inj) 40 mg IVP DAILY [facility] Last Admin: 12/27/18 09:59 Dose: 40 mg Rosuvastatin Calcium (Crestor) 5 mg PO HS [facility] Last Admin: 12/19/18 21:50 Dose: Not Given - Labs Labs: 12/27/18 06:26 12/27/18 06:26 PT 14.4 SECONDS (9.7-12.2) H 12/24/18 07:10 INR 1.3 12/24/18 07:10 APTT 37 SECONDS (21-34) H 12/24/18 07:10 - Constitutional Appears: Well - Head Exam Head Exam: ATRAUMATIC, NORMAL INSPECTION, NORMOCEPHALIC - Eye Exam Eye Exam: EOMI, Normal appearance, PERRL Pupil Exam: NORMAL ACCOMODATION, PERRL - ENT Exam ENT Exam: Mucous Membranes Moist, Normal Exam - Neck Exam Neck Exam: Full ROM, Normal Inspection. absent: Lymphadenopathy - Respiratory Exam Respiratory Exam: Decreased Breath Sounds - Cardiovascular Exam Cardiovascular Exam: REGULAR RHYTHM, +S1, +S2 - GI/Abdominal Exam GI & Abdominal Exam: Soft, Diminished Bowel Sounds - Rectal Exam Rectal Exam: Deferred Assessment and Plan (1) Abdominal pain Status: Acute (2) Acute pancreatitis Status: Acute (3) Cholecystitis Status: Acute (4) Abrasion of knee, bilateral Status: Acute (5) Dizziness Status: Acute (6) Foreign body in ear Status: Acute (7) Poorly controlled diabetes mellitus Status: Acute (8) Shoulder contusion Status: Acute
--- NOTE | 2018-12-28 00:10 | OP ---
PROCEDURE DATE: 12/25/2018 SURGEON: Therese Bloom MD LIFE CARE PLANNER: Brenda Holguin DO, PGY-4 TYPE OF ANESTHESIA: General. PREOPERATIVE DIAGNOSES: Gallstone pancreatitis and cholecystitis. POSTOPERATIVE DIAGNOSES: Gallstone pancreatitis and cholecystitis. OPERATION PERFORMED: Diagnostic laparoscopy, exploratory laparotomy, lysis of adhesions, drainage of pericholecystic abscess. INDICATIONS FOR SURGERY: This is a 68-year-old male who presented to the hospital on 12/19/2018, found to have gallstone pancreatitis and was treated for this over the course of approximately one week. The decision was then made to take him for cholecystectomy. DESCRIPTION OF PROCEDURE: The patient was placed on the operating table in the supine position. General anesthesia was induced. Time-out was completed, verifying the correct patient, procedure, site, positioning, and special equipment prior to the procedure. The patient was prepped and draped in the usual sterile fashion. Local anesthetic was injected supraumbilically and an incision was made in the natural skin crease just above the umbilicus. The Veress needle was inserted. Proper position was confirmed with saline meniscus test and the abdomen was insufflated with carbon dioxide to a pressure of 50 mmHg. A 10-mm trocar was then placed in the supraumbilical incision and the laparoscope was placed. The abdomen was inspected. There was found to be omentum adherent to the superior portion of the liver edge. Next, an additional 10-mm trocar was placed under direct visualization in the right epigastrium and two 5-mm trocars were placed along the right costal margin. There were no injuries from trocar placement noted. A blunt dissection was used to attempt to release the omentum from the liver. There was a small region of opening created between the omentum and the liver capsule in the area of the expected gallbladder. This area was firm and there were no clear planes between the omentum and the gallbladder that were able to be visualized. A pericholecystic abscess was encountered and thoroughly drained, approximately 100 mL of purulent drainage was aspirated along with small fragments of what appeared to be stones. Next, the LigaSure was used to further attempt to release the omentum off of the underlying gallbladder with minimal progress being made at this time and no clear visualization of the critical structures. Decision was made to convert to an open operation. A Monica incision was made 2 cm below the right subcostal margin. Dissection was carried down through the anterior and posterior sheath and through the peritoneum. A retractor was placed superiorly, and using blunt dissection, the omentum was further attempted to be brought off of the liver and gallbladder. At this time, further examination found that just beneath the omentum was the colon and the duodenum which also appeared to be attached within this dense fibrous inflammatory mass overlying the gallbladder. There were no clear planes between the gallbladder, the omentum that could be found due to the proximity of the colon and duodenum within this inflammatory mass. The decision was made that further dissection would not be safe at this time. A 19-Bahraini Raheem drain was placed in the right hepatic recess and brought out through the inferior most 5-mm port incision was sutured in place. There was no bleeding noted within the abdomen. Hemostasis was achieved along the muscle edges. There was no leakage of bile or enteric contents. At this time, the posterior sheath and peritoneum were closed with a running 0 Vicryl suture. The anterior sheath was then closed separately with an additional running 0 Vicryl suture and the skin was closed with james. The patient was extubated and taken to the recovery room in stable condition. Brenda Holguin DO Therese Bloom MD [facility]
[2018-12-28] MEDS: Piperacill/Tazo 3.375gm in Dex 3.375 GM/50 ML BAG IVPB SCH ×5 (00:28→22:41)
[2018-12-28] MEDS: Benzocaine/Menthol (Cepacol) Lozenge MT SCH ×6 (00:29→19:55)
[2018-12-28] MEDS: Potassium Ch 20mEq in D5-1/2NS 1,000 ML IV SCH ×3 (02:32→13:35)
[2018-12-28] MEDS: Levothyroxine 75 MCG TAB PO SCH (05:39)
[2018-12-28 07:44] LABS: BASO # 0.1 K/uL (0.0-0.2); EOS # 0.7 K/uL (0.0-0.7); HEMOGLOBIN 9.3 g/dL (12.0-18.0); MONO # 0.6 K/uL (0.0-0.8)
[2018-12-28 07:54] LABS: BASO % 1.2 % (0.0-2.0); EOS % 7.9 % (0.0-4.0); LYMPH % 11.4 % (20.0-40.0); MEAN CELL VOLUME 68.8 fL (80.0-94.0); MEAN CORPUSCULAR HEMOGLOBIN 20.3 pg (27.0-31.0); MEAN CORPUSCULAR HGB CONC 29.6 g/dL (33.0-37.0); MEAN PLATELET VOLUME 8.5 fL (7.2-11.7); MONO % 6.1 % (0.0-10.0); NEUT # 6.7 K/uL (1.8-7.0); NEUT % 73.4 % (50.0-75.0); NRBC % 0.1 % (0.0-2.0); RBC 4.59 Mil/uL (4.40-5.90); WHITE BLOOD COUNT 9.1 K/uL (4.8-10.8)
[2018-12-28 08:07] LABS: ALBUMIN 2.8 g/dL (3.5-5.0); ALT/SGPT 23 U/L (21-72); AST/SGOT 27 U/L (17-59); BLOOD UREA NITROGEN 5 mg/dL (9-20); CALCIUM 7.8 mg/dl (8.6-10.4); GFR NON-AFRICAN AMERICAN > 60
--- NOTE | 2018-12-28 08:08 | CP.PCM.PN ---
Subjective - Date & Time of Evaluation Date of Evaluation: 12/28/18 Time of Evaluation: 08:02 - Subjective Subjective: Surgical Progress Note for Dr. Bloom, covering for Dr. Chaudhry Patient seen and examined at bedside. Patient is post op day 3 from lap, converted to open surgery. Cholecystectomy was unsafe after patient was noted to have abscess around gallbladder. Patient complains of pain to surgical site. He states he has been passing flatus, denies bowel movement. He continues to have output from his Raheem. He states that he has not been getting a lot of clear liquid diet. Raheem 20cc x24 hours serosanguineous Objective - Vital Signs/Intake and Output Vital Signs (last 24 hours): Temp Pulse Resp BP Pulse Ox 97.9 F 93 H 20 116/76 96 12/28/18 07:55 12/28/18 07:55 12/28/18 07:55 12/28/18 07:55 12/28/18 07:55 Intake and Output: 12/28/18 12/28/18 06:59 18:59 Intake Total 800 950 Output Total 510 210 Balance 290 740 - Medications Medications: Current Medications Acetaminophen (Tylenol 325mg Tab) 975 mg PO Q8H [facility] Last Admin: 12/28/18 03:47 Dose: Not Given Benzocaine/Menthol (Cepacol Sore Throat) 1 alex MT Q4 [facility] Last Admin: 12/28/18 07:53 Dose: 1 alex Calcium Acetate (Phoslo) 667 mg PO BIDCC [facility] Last Admin: 12/28/18 07:53 Dose: 667 mg Celecoxib (Celebrex) 200 mg PO DAILY [facility] Last Admin: 12/27/18 10:21 Dose: 200 mg Enoxaparin Sodium (Lovenox) 40 mg SC DAILY [facility] Last Admin: 12/27/18 09:59 Dose: 40 mg Ferric Sodium Gluconate Complex (Ferrlecit) 125 mg IVPB DAILY [facility] Stop: 12/28/18 10:01 Last Admin: 12/27/18 09:59 Dose: 125 mg Hydromorphone/Sodium Chloride (Dilaudid Senior Account Director) 6 mg IV Q4H PRN; Protocol PRN Reason: Pain, moderate (4-7) Last Admin: 12/27/18 10:21 Dose: 6 mg Piperacillin Sod/Tazobactam Sod (Zosyn 3.375 Gm Iv Premix) 3.375 gm in 50 mls @ 100 mls/hr IVPB Q6H [facility]; Protocol Last Admin: 12/28/18 05:39 Dose: 100 mls/hr Potassium Chloride/Dextrose/Sod Cl (Potassium Chl 20 Meq In D5-1/2ns) 1,000 mls @ 100 mls/hr IV .Q10H [facility] Last Admin: 12/28/18 03:47 Dose: Not Given Levothyroxine Sodium (Synthroid) 75 mcg PO DAILY@0630 [facility] Last Admin: 12/28/18 05:39 Dose: 75 mcg Lidocaine (Lidoderm) 1 ea TD DAILY [facility] Last Admin: 12/27/18 10:00 Dose: 1 ea Ondansetron HCl (Zofran Inj) 4 mg IVP Q4H PRN PRN Reason: Nausea/Vomiting Pantoprazole Sodium (Protonix Inj) 40 mg IVP DAILY [facility] Last Admin: 12/27/18 09:59 Dose: 40 mg Rosuvastatin Calcium (Crestor) 5 mg PO HS [facility] Last Admin: 12/19/18 21:50 Dose: Not Given - Labs Labs: 12/28/18 07:34 12/27/18 06:26 PT 14.4 SECONDS (9.7-12.2) H 12/24/18 07:10 INR 1.3 12/24/18 07:10 APTT 37 SECONDS (21-34) H 12/24/18 07:10 - Constitutional Appears: Well, Non-toxic - Head Exam Head Exam: ATRAUMATIC, NORMOCEPHALIC - Eye Exam Eye Exam: EOMI, PERRL - ENT Exam ENT Exam: Mucous Membranes Moist - Neck Exam Neck Exam: Full ROM - Respiratory Exam Respiratory Exam: Clear to Ausculation Bilateral, NORMAL BREATHING PATTERN - Cardiovascular Exam Cardiovascular Exam: REGULAR RHYTHM, +S1, +S2 - GI/Abdominal Exam GI & Abdominal Exam: Distended, Soft, Tenderness (around incision site). absent: Firm (Mildly), Guarding Additional comments: Raheem in place with serosanguineous output - Extremities Exam Extremities Exam: Normal Capillary Refill, Normal Inspection. absent: Calf Tenderness, Pedal Edema - Back Exam Back Exam: NORMAL INSPECTION - Neurological Exam Neurological Exam: Alert, Awake, Oriented x3. absent: Motor Sensory Deficit - Psychiatric Exam Psychiatric exam: Normal Affect, Normal Mood - Skin Skin Exam: Dry, Intact, Warm Assessment and Plan - Assessment and Plan (Free Text) Assessment: 68 year old male POD 3 status post ex-lap, drainage of pericholecystic abscess Plan: Drain dressing changed at bedside. Continue clear liquid diet Monitor bowel function Encourage out of bed to chair, ambulate, incentive spirometer use Cepacol losenges Q4 Plan to discontinue LIQUID CHLORINE OPERATOR pump. Chloé Burgos, PGY1
[2018-12-28] MEDS: Enoxaparin 40 mg Syringe SC SCH (10:22)
[2018-12-28] MEDS: Ferric Sodium Gluconat Complex 62.5 mg/5 ml Vial IVPB SCH (10:22)
[2018-12-28] MEDS: Lidocaine 5% Patch TD SCH (10:27)
[2018-12-28] MEDS ORDERED: Morphine 4 MG/ML VIAL IVP PRN (15:28)
--- NOTE | 2018-12-28 16:14 | CP.PCM.PN ---
"Subjective - Date & Time of Evaluation Date of Evaluation: 12/28/18 Time of Evaluation: 13:00 - Subjective Subjective: Patient seen and examined at bedside. No overnight events reported. Denies any fever and chills. Abdominal pain has improved. He had a loose bowel movement (Witnessed by nurse). He denies any chest pain, SOB, nausea or vomiting. Objective - Vital Signs/Intake and Output Vital Signs (last 24 hours): Temp Pulse Resp BP Pulse Ox 97.7 F 85 20 119/76 96 12/28/18 15:58 12/28/18 15:58 12/28/18 15:58 12/28/18 15:58 12/28/18 15:58 Intake and Output: 12/28/18 12/28/18 06:59 18:59 Intake Total 800 1750 Output Total 510 230 Balance 290 1520 - Medications Medications: Current Medications Acetaminophen (Tylenol 325mg Tab) 975 mg PO Q8H [facility] Last Admin: 12/28/18 13:34 Dose: Not Given Benzocaine/Menthol (Cepacol Sore Throat) 1 alex MT Q4 [facility] Last Admin: 12/28/18 12:37 Dose: 1 alex Calcium Acetate (Phoslo) 667 mg PO BIDCC [facility] Last Admin: 12/28/18 07:53 Dose: 667 mg Celecoxib (Celebrex) 200 mg PO DAILY [facility] Last Admin: 12/28/18 10:22 Dose: 200 mg Enoxaparin Sodium (Lovenox) 40 mg SC DAILY [facility] Last Admin: 12/28/18 10:22 Dose: Not Given Piperacillin Sod/Tazobactam Sod (Zosyn 3.375 Gm Iv Premix) 3.375 gm in 50 mls @ 100 mls/hr IVPB Q6H [facility]; Protocol Last Admin: 12/28/18 11:44 Dose: 100 mls/hr Potassium Chloride/Dextrose/Sod Cl (Potassium Chl 20 Meq In D5-1/2ns) 1,000 mls @ 100 mls/hr IV .Q10H [facility] Last Admin: 12/28/18 13:35 Dose: Not Given Levothyroxine Sodium (Synthroid) 75 mcg PO DAILY@0630 [facility] Last Admin: 12/28/18 05:39 Dose: 75 mcg Lidocaine (Lidoderm) 1 ea TD DAILY [facility] Last Admin: 12/28/18 10:27 Dose: 1 ea Morphine Sulfate (Morphine) 4 mg IVP Q4H PRN PRN Reason: Pain, severe (8-10) Ondansetron HCl (Zofran Inj) 4 mg IVP Q4H PRN PRN Reason: Nausea/Vomiting Pantoprazole Sodium (Protonix Inj) 40 mg IVP DAILY [facility] Last Admin: 12/28/18 10:21 Dose: 40 mg Rosuvastatin Calcium (Crestor) 5 mg PO HS [facility] Last Admin: 12/19/18 21:50 Dose: Not Given Tramadol HCl (Ultram) 50 mg PO Q6 PRN PRN Reason: Pain, moderate (4-7) - Labs Labs: 12/28/18 07:34 12/28/18 07:34 PT 14.4 SECONDS (9.7-12.2) H 12/24/18 07:10 INR 1.3 12/24/18 07:10 APTT 37 SECONDS (21-34) H 12/24/18 07:10 - Additional Findings Additional findings: - Constitutional Appears: Non-toxic, No Acute Distress - Head Exam Head Exam: ATRAUMATIC, NORMOCEPHALIC - Eye Exam Eye Exam: EOMI, PERRL - ENT Exam ENT Exam: Mucous Membranes Moist - Neck Exam Neck Exam: Full ROM - Respiratory Exam Respiratory Exam: NORMAL BREATHING PATTERN - Cardiovascular Exam Cardiovascular Exam: REGULAR RHYTHM, +S1, +S2 - GI/Abdominal Exam GI & Abdominal Exam: Distended (Mildly), Tenderness (around incision site). absent: Firm, Guarding, Rigid Additional comments: Raheem in place with serosanguineous output - Extremities Exam Extremities Exam: absent: Calf Tenderness, Pedal Edema - Neurological Exam Neurological Exam: Alert, Awake, Oriented x3 - Skin Skin Exam: Intact, Warm Assessment and Plan - Assessment and Plan (Free Text) Assessment: 68 year old male with a PMHx of HLD, Diabetes, Diverticulosis, Hemorrhoids, and hypothyroidism admitted for evaluation and treatment of gallstone pancreatitis and acute cholecystitis. s/p lap Chol that was converted into ex-lap. Found to have a pericholecystic abscess. Drain was placed. Plan: Gallstone Pancreatitis. Abd/Pelvis CT (Admission): shows pancreatitis and cholecystitis. Abdomen US (Admission): Free Fluid in Liver, Fatty Liver, GB Stones and Sludge, Slightly dilated hepatic ducts, dilated CBD, Normal Kidneys/Spleen. Limited view of pancreas. Consults: GI (Dr. Mccann) | Surgery (Dr. Chaudhry) Lipid Panel: Shows low HDL, the rest is WNL. Mgmt: Clear Liquid Diet | D5 in 1/2 NS @ 100mls/hr Dilauded 0.5mg Q3H IVP Serial Abdominal Exams. Acute Cholecystitis/Pericholecystic Abscess. Post-Operative Day # 2 status post ex-lap, drainage of pericholecystic abscess. Abd/Pelvis CT (Admission): shows pancreatitis and cholecystitis. Abdomen US (Admission): Free Fluid in Liver, Fatty Liver, GB Stones and Sludge, Slightly dilated hepatic ducts, dilated CBD, Normal Kidneys/Spleen. Limited view of pancreas. MRCP of Abdomen: No filling defect. Consults: Surgery (Dr. Chaudhry) Advance to Low Fat, Soft Diet. Monitor Bowel Function. Encourage Bed to Chair, ambulation, and incentive spirometer use. Cepacol losenges. 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 6mg IV Q4H PRN Zofran PRN Tylenol PRN Iron Def. Anemia. Likely Iron Deficiency. HgB - 7.0 on Admission Has had GI Bleed in the past. Colonscopy (07/27/15) showed polyps and AVM in Ascending Colon which was treated. Anemia Workup SHows Low Iron and Elevated Haptoglobin. | Stool Occult Blood #1 - NEGATIVE. Monitor S/P Two Units of PRBCs on Admission Mgmt: Ferrlicet 125mg IV Daily. Electrolyte Abnormalities. (Hypocalcemia, Hypophosphatemia) Replenish PRN Mgmt: Phoslo 667mg PO BIDCC Blood in Stool Likely 2/2 to Hemorrhoids. Stool Occult Blood NEGATIVE Will cont. to monitor HgB. Thrombocytosis (Resolved) Likely Reactive Thrombocytosis 2/2 to Iron Def. Anemia vs Cholecystitis Will Cont. to Monitor. Diabetes Hold Home Meds until patient is not NPO Will start ISS once patient is not NPO Hypothyroidism Mgmt: Home Synthroid 75mcg HLD Mgmt: Crestor 5 HS (HELD) Proph VTE proph Contraindicated SCD's Protonix IV Daily Dispo: Currently with JEREMY Drain with SeroSanguinous Fluid. Plan to remove drain per surgery. Patient discussed with Attending (Dr. Oj Williamson) Milagros Agosto, PGY-2"
--- NOTE | 2018-12-28 19:28 | CP.PCM.PN ---
Subjective - Date & Time of Evaluation Date of Evaluation: 12/28/18 Time of Evaluation: 07:30 - Subjective Subjective: clinically same Objective - Vital Signs/Intake and Output Vital Signs (last 24 hours): Temp Pulse Resp BP Pulse Ox 97.7 F 85 20 119/76 96 12/28/18 15:58 12/28/18 15:58 12/28/18 15:58 12/28/18 15:58 12/28/18 15:58 Intake and Output: 12/28/18 12/29/18 18:59 06:59 Intake Total 1750 Output Total 230 Balance 1520 - Medications Medications: Current Medications Acetaminophen (Tylenol 325mg Tab) 975 mg PO Q8H [facility] Last Admin: 12/28/18 13:34 Dose: Not Given Benzocaine/Menthol (Cepacol Sore Throat) 1 alex MT Q4 [facility] Last Admin: 12/28/18 16:00 Dose: 1 alex Calcium Acetate (Phoslo) 667 mg PO BIDCC [facility] Last Admin: 12/28/18 17:51 Dose: 667 mg Celecoxib (Celebrex) 200 mg PO DAILY [facility] Last Admin: 12/28/18 10:22 Dose: 200 mg Enoxaparin Sodium (Lovenox) 40 mg SC DAILY [facility] Last Admin: 12/28/18 10:22 Dose: Not Given Piperacillin Sod/Tazobactam Sod (Zosyn 3.375 Gm Iv Premix) 3.375 gm in 50 mls @ 100 mls/hr IVPB Q6H [facility]; Protocol Last Admin: 12/28/18 17:51 Dose: 100 mls/hr Potassium Chloride/Dextrose/Sod Cl (Potassium Chl 20 Meq In D5-1/2ns) 1,000 mls @ 100 mls/hr IV .Q10H [facility] Last Admin: 12/28/18 13:35 Dose: Not Given Levothyroxine Sodium (Synthroid) 75 mcg PO DAILY@0630 [facility] Last Admin: 12/28/18 05:39 Dose: 75 mcg Lidocaine (Lidoderm) 1 ea TD DAILY [facility] Last Admin: 12/28/18 10:27 Dose: 1 ea Morphine Sulfate (Morphine) 4 mg IVP Q4H PRN PRN Reason: Pain, severe (8-10) Ondansetron HCl (Zofran Inj) 4 mg IVP Q4H PRN PRN Reason: Nausea/Vomiting Pantoprazole Sodium (Protonix Inj) 40 mg IVP DAILY [facility] Last Admin: 12/28/18 10:21 Dose: 40 mg Rosuvastatin Calcium (Crestor) 5 mg PO HS [facility] Last Admin: 12/19/18 21:50 Dose: Not Given Tramadol HCl (Ultram) 50 mg PO Q6 PRN PRN Reason: Pain, moderate (4-7) - Labs Labs: 12/28/18 07:34 12/28/18 07:34 PT 14.4 SECONDS (9.7-12.2) H 12/24/18 07:10 INR 1.3 12/24/18 07:10 APTT 37 SECONDS (21-34) H 12/24/18 07:10 - Constitutional Appears: Well - Head Exam Head Exam: ATRAUMATIC, NORMAL INSPECTION, NORMOCEPHALIC - Eye Exam Eye Exam: EOMI, Normal appearance, PERRL Pupil Exam: NORMAL ACCOMODATION, PERRL - ENT Exam ENT Exam: Mucous Membranes Moist, Normal Exam - Neck Exam Neck Exam: Full ROM, Normal Inspection. absent: Lymphadenopathy - Respiratory Exam Respiratory Exam: Decreased Breath Sounds - Cardiovascular Exam Cardiovascular Exam: REGULAR RHYTHM, +S1, +S2 - GI/Abdominal Exam GI & Abdominal Exam: Soft, Diminished Bowel Sounds - Rectal Exam Rectal Exam: Deferred Assessment and Plan (1) Abdominal pain Status: Acute (2) Acute pancreatitis Status: Acute (3) Cholecystitis Status: Acute (4) Abrasion of knee, bilateral Status: Acute (5) Dizziness Status: Acute (6) Foreign body in ear Status: Acute (7) Poorly controlled diabetes mellitus Status: Acute (8) Shoulder contusion Status: Acute
[2018-12-29] MEDS: Benzocaine/Menthol (Cepacol) Lozenge MT SCH ×6 (00:04→22:00)
[2018-12-29] MEDS: Potassium Ch 20mEq in D5-1/2NS 1,000 ML IV SCH (00:04)
[2018-12-29] MEDS: Piperacill/Tazo 3.375gm in Dex 3.375 GM/50 ML BAG IVPB SCH ×3 (05:31→17:46)
[2018-12-29] MEDS: Levothyroxine 75 MCG TAB PO SCH (05:53)
[2018-12-29 06:50] LABS: BASO # 0.2 K/uL (0.0-0.2); EOS # 0.7 K/uL (0.0-0.7); EOS % 9.8 % (0.0-4.0); HEMOGLOBIN 9.5 g/dL (12.0-18.0); LYMPH # 0.8 K/uL (1.0-4.3); MEAN CELL VOLUME 69.6 fL (80.0-94.0); MEAN CORPUSCULAR HEMOGLOBIN 20.8 pg (27.0-31.0); MEAN CORPUSCULAR HGB CONC 29.9 g/dL (33.0-37.0); MEAN PLATELET VOLUME 8.5 fL (7.2-11.7); MONO # 0.6 K/uL (0.0-0.8); MONO % 8.4 % (0.0-10.0); NEUT # 5.2 K/uL (1.8-7.0); NEUT % 68.8 % (50.0-75.0); RBC 4.58 Mil/uL (4.40-5.90); WHITE BLOOD COUNT 7.6 K/uL (4.8-10.8)
[2018-12-29 07:43] LABS: ALB/GLOB RATIO 0.8 (1.0-2.1); ALBUMIN 2.8 g/dL (3.5-5.0); ALT/SGPT 25 U/L (21-72); AST/SGOT 42 U/L (17-59); BLOOD UREA NITROGEN 2 mg/dL (9-20); CALCIUM 8.6 mg/dl (8.6-10.4); GFR NON-AFRICAN AMERICAN > 60
--- NOTE | 2018-12-29 07:52 | CP.PCM.PN ---
Subjective - Date & Time of Evaluation Date of Evaluation: 12/29/18 Time of Evaluation: 07:47 - Subjective Subjective: SURGERY NOTE FOR DR. LANGFORD 68M seen and examined at bedside. Patient states pain is improved, denies nausea or vomiting. States he is tolerating current diet. Denies any bowel movements and does not know if he is passing flatus. Feels abdomen is still mildly distended. Objective - Vital Signs/Intake and Output Vital Signs (last 24 hours): Temp Pulse Resp BP Pulse Ox 97.5 F L 76 20 132/80 98 12/29/18 00:00 12/29/18 00:00 12/29/18 00:00 12/29/18 00:00 12/29/18 00:00 Intake and Output: 12/29/18 12/29/18 06:59 18:59 Intake Total 1050 Output Total 710 Balance 340 - Medications Medications: Current Medications Acetaminophen (Tylenol 325mg Tab) 975 mg PO Q8H [facility] Last Admin: 12/29/18 04:42 Dose: Not Given Benzocaine/Menthol (Cepacol Sore Throat) 1 alex MT Q4 [facility] Last Admin: 12/29/18 03:52 Dose: Not Given Calcium Acetate (Phoslo) 667 mg PO BIDCC [facility] Last Admin: 12/28/18 17:51 Dose: 667 mg Celecoxib (Celebrex) 200 mg PO DAILY [facility] Last Admin: 12/28/18 10:22 Dose: 200 mg Enoxaparin Sodium (Lovenox) 40 mg SC DAILY [facility] Last Admin: 12/28/18 10:22 Dose: Not Given Piperacillin Sod/Tazobactam Sod (Zosyn 3.375 Gm Iv Premix) 3.375 gm in 50 mls @ 100 mls/hr IVPB Q6H [facility]; Protocol Last Admin: 12/29/18 05:31 Dose: 100 mls/hr Potassium Chloride/Dextrose/Sod Cl (Potassium Chl 20 Meq In D5-1/2ns) 1,000 mls @ 100 mls/hr IV .Q10H [facility] Last Admin: 12/29/18 00:04 Dose: Not Given Levothyroxine Sodium (Synthroid) 75 mcg PO DAILY@0630 [facility] Last Admin: 12/29/18 05:53 Dose: 75 mcg Lidocaine (Lidoderm) 1 ea TD DAILY [facility] Last Admin: 12/28/18 10:27 Dose: 1 ea Morphine Sulfate (Morphine) 4 mg IVP Q4H PRN PRN Reason: Pain, severe (8-10) Ondansetron HCl (Zofran Inj) 4 mg IVP Q4H PRN PRN Reason: Nausea/Vomiting Pantoprazole Sodium (Protonix Inj) 40 mg IVP DAILY [facility] Last Admin: 12/28/18 10:21 Dose: 40 mg Rosuvastatin Calcium (Crestor) 5 mg PO HS [facility] Last Admin: 12/19/18 21:50 Dose: Not Given Tramadol HCl (Ultram) 50 mg PO Q6 PRN PRN Reason: Pain, moderate (4-7) Last Admin: 12/29/18 05:38 Dose: 50 mg - Labs Labs: 12/29/18 06:37 12/29/18 06:37 PT 14.4 SECONDS (9.7-12.2) H 12/24/18 07:10 INR 1.3 12/24/18 07:10 APTT 37 SECONDS (21-34) H 12/24/18 07:10 - Constitutional Appears: Non-toxic, No Acute Distress - Respiratory Exam Respiratory Exam: Clear to Ausculation Bilateral, NORMAL BREATHING PATTERN - Cardiovascular Exam Cardiovascular Exam: REGULAR RHYTHM, +S1, +S2 - GI/Abdominal Exam GI & Abdominal Exam: Distended (mildly), Soft, Tenderness (mildly). absent: Firm, Guarding, Rigid, Rebound Additional comments: incisions CDI - Extremities Exam Extremities Exam: absent: Pedal Edema, Tenderness - Neurological Exam Neurological Exam: Alert, Awake - Skin Skin Exam: Dry, Intact, Normal Color, Warm Assessment and Plan - Assessment and Plan (Free Text) Assessment: 68M s/p diag laparoscopy turn, junior incision exploratory laparotomy with drainage of percholecystic abscess POD#4 Plan: - Continue diet - await bowel function - OOB and ambulating - Incentive spirometer - DVT ppx Further recs discuss with Dr. Wolf Leung, PGY3
[2018-12-29] MEDS: Enoxaparin 40 mg Syringe SC SCH (09:54)
[2018-12-29] MEDS: Lidocaine 5% Patch TD SCH (09:55)
--- NOTE | 2018-12-29 17:37 | CP.PCM.PN ---
Subjective - Date & Time of Evaluation Date of Evaluation: 12/29/18 Time of Evaluation: 07:30 - Subjective Subjective: clinically same Objective - Vital Signs/Intake and Output Vital Signs (last 24 hours): Temp Pulse Resp BP Pulse Ox 98.3 F 101 H 20 122/79 96 12/29/18 15:00 12/29/18 15:00 12/29/18 15:00 12/29/18 15:00 12/29/18 15:00 Intake and Output: 12/29/18 12/29/18 06:59 18:59 Intake Total 1050 1600 Output Total 710 1500 Balance 340 100 - Medications Medications: Current Medications Acetaminophen (Tylenol 325mg Tab) 975 mg PO Q8H [facility] Last Admin: 12/29/18 11:45 Dose: Not Given Benzocaine/Menthol (Cepacol Sore Throat) 1 alex MT Q4 [facility] Last Admin: 12/29/18 11:23 Dose: 1 alex Calcium Acetate (Phoslo) 667 mg PO BIDCC [facility] Last Admin: 12/29/18 07:53 Dose: 667 mg Enoxaparin Sodium (Lovenox) 40 mg SC DAILY [facility] Last Admin: 12/29/18 09:54 Dose: 40 mg Piperacillin Sod/Tazobactam Sod (Zosyn 3.375 Gm Iv Premix) 3.375 gm in 50 mls @ 100 mls/hr IVPB Q6H [facility]; Protocol Last Admin: 12/29/18 11:11 Dose: 100 mls/hr Ketorolac Tromethamine (Toradol) 30 mg IVP Q6 PRN PRN Reason: Pain, moderate (4-7) Levothyroxine Sodium (Synthroid) 75 mcg PO DAILY@0630 [facility] Last Admin: 12/29/18 05:53 Dose: 75 mcg Lidocaine (Lidoderm) 1 ea TD DAILY [facility] Last Admin: 12/29/18 09:55 Dose: 1 ea Ondansetron HCl (Zofran Inj) 4 mg IVP Q4H PRN PRN Reason: Nausea/Vomiting Pantoprazole Sodium (Protonix Ec Tab) 40 mg PO DAILY [facility] Rosuvastatin Calcium (Crestor) 5 mg PO HS [facility] Last Admin: 12/19/18 21:50 Dose: Not Given - Labs Labs: 12/29/18 06:37 12/29/18 06:37 PT 14.4 SECONDS (9.7-12.2) H 12/24/18 07:10 INR 1.3 12/24/18 07:10 APTT 37 SECONDS (21-34) H 12/24/18 07:10 - Constitutional Appears: Well - Head Exam Head Exam: ATRAUMATIC, NORMAL INSPECTION, NORMOCEPHALIC - Eye Exam Eye Exam: EOMI, Normal appearance, PERRL Pupil Exam: NORMAL ACCOMODATION, PERRL - ENT Exam ENT Exam: Mucous Membranes Moist, Normal Exam - Neck Exam Neck Exam: Full ROM, Normal Inspection. absent: Lymphadenopathy - Respiratory Exam Respiratory Exam: Decreased Breath Sounds - Cardiovascular Exam Cardiovascular Exam: REGULAR RHYTHM, +S1, +S2 - GI/Abdominal Exam GI & Abdominal Exam: Soft, Diminished Bowel Sounds - Rectal Exam Rectal Exam: Deferred Assessment and Plan (1) Abdominal pain Status: Acute (2) Acute pancreatitis Status: Acute (3) Cholecystitis Status: Acute (4) Abrasion of knee, bilateral Status: Acute (5) Dizziness Status: Acute (6) Foreign body in ear Status: Acute (7) Poorly controlled diabetes mellitus Status: Acute (8) Shoulder contusion Status: Acute
[2018-12-30] MEDS: Piperacill/Tazo 3.375gm in Dex 3.375 GM/50 ML BAG IVPB SCH ×5 (00:08→23:52)
[2018-12-30] MEDS: Benzocaine/Menthol (Cepacol) Lozenge MT SCH ×7 (00:18→23:55)
[2018-12-30] MEDS: Levothyroxine 75 MCG TAB PO SCH (05:34)
--- NOTE | 2018-12-30 06:32 | CP.PCM.PN ---
Subjective - Date & Time of Evaluation Date of Evaluation: 12/30/18 Time of Evaluation: 06:32 - Subjective Subjective: SURGERY NOTE FOR DR. LANGFORD 68M seen and examined at bedside. Patient doing well states pain is resolved. Denies any nausea or vomiting. Patient admits to flatus and multiple bowel movements yesterday. He is tolerating regular diet. He has been ambulating. Objective - Vital Signs/Intake and Output Vital Signs (last 24 hours): Temp Pulse Resp BP Pulse Ox 98.2 F 88 20 137/83 97 12/30/18 00:00 12/30/18 00:00 12/30/18 00:00 12/30/18 00:00 12/30/18 00:00 Intake and Output: 12/29/18 12/30/18 18:59 06:59 Intake Total 1600 450 Output Total 1500 500 Balance 100 -50 - Medications Medications: Current Medications Acetaminophen (Tylenol 325mg Tab) 975 mg PO Q8H [facility] Last Admin: 12/30/18 04:27 Dose: Not Given Benzocaine/Menthol (Cepacol Sore Throat) 1 alex MT Q4 [facility] Last Admin: 12/30/18 04:27 Dose: Not Given Calcium Acetate (Phoslo) 667 mg PO BIDCC [facility] Last Admin: 12/29/18 17:46 Dose: 667 mg Enoxaparin Sodium (Lovenox) 40 mg SC DAILY [facility] Last Admin: 12/29/18 09:54 Dose: 40 mg Piperacillin Sod/Tazobactam Sod (Zosyn 3.375 Gm Iv Premix) 3.375 gm in 50 mls @ 100 mls/hr IVPB Q6H [facility]; Protocol Last Admin: 12/30/18 05:34 Dose: 100 mls/hr Ketorolac Tromethamine (Toradol) 30 mg IVP Q6 PRN PRN Reason: Pain, moderate (4-7) Levothyroxine Sodium (Synthroid) 75 mcg PO DAILY@0630 [facility] Last Admin: 12/30/18 05:34 Dose: 75 mcg Lidocaine (Lidoderm) 1 ea TD DAILY [facility] Last Admin: 12/29/18 09:55 Dose: 1 ea Ondansetron HCl (Zofran Inj) 4 mg IVP Q4H PRN PRN Reason: Nausea/Vomiting Pantoprazole Sodium (Protonix Ec Tab) 40 mg PO DAILY [facility] Rosuvastatin Calcium (Crestor) 5 mg PO HS [facility] Last Admin: 12/19/18 21:50 Dose: Not Given - Labs Labs: 12/29/18 06:37 12/29/18 06:37 PT 14.4 SECONDS (9.7-12.2) H 12/24/18 07:10 INR 1.3 12/24/18 07:10 APTT 37 SECONDS (21-34) H 12/24/18 07:10 - Constitutional Appears: Non-toxic, No Acute Distress - Respiratory Exam Respiratory Exam: Clear to Ausculation Bilateral, NORMAL BREATHING PATTERN - Cardiovascular Exam Cardiovascular Exam: REGULAR RHYTHM, +S1, +S2 - GI/Abdominal Exam GI & Abdominal Exam: Soft. absent: Distended, Firm, Guarding, Rigid, Tenderness, Rebound Additional comments: incisions CDI - Extremities Exam Extremities Exam: absent: Pedal Edema, Tenderness - Neurological Exam Neurological Exam: Alert, Awake - Skin Skin Exam: Dry, Intact, Normal Color, Warm Assessment and Plan - Assessment and Plan (Free Text) Assessment: 68M s/p diagnostic laparoscopy turn, junior incision exploratory laparotomy with drainage of pericholecystic abscess POD#5 Plan: - continue to ambulate - Incentive spirometer - Patient may poss go home today Further recs discuss with Dr. Wolf Leung, PGY3
[2018-12-30 08:54] LABS: HEMOGLOBIN 9.9 g/dL (12.0-18.0); MEAN CELL VOLUME 70.2 fL (80.0-94.0); MEAN CORPUSCULAR HEMOGLOBIN 21.2 pg (27.0-31.0); MEAN CORPUSCULAR HGB CONC 30.2 g/dL (33.0-37.0); MEAN PLATELET VOLUME 8.6 fL (7.2-11.7); RBC 4.68 Mil/uL (4.40-5.90); RED CELL DISTRIBUTION WIDTH 35.6 % (11.5-14.5); WHITE BLOOD COUNT 7.4 K/uL (4.8-10.8)
[2018-12-30 09:11] LABS: ALB/GLOB RATIO 0.8 (1.0-2.1); ALT/SGPT 15 U/L (21-72); AST/SGOT 28 U/L (17-59); BLOOD UREA NITROGEN 3 mg/dL (9-20); CALCIUM 8.8 mg/dl (8.6-10.4); GFR NON-AFRICAN AMERICAN > 60
[2018-12-30] MEDS: Lidocaine 5% Patch TD SCH (09:52)
[2018-12-30] MEDS: Enoxaparin 40 mg Syringe SC SCH (09:52)
[2018-12-30] MEDS: Pantoprazole 40 mg EC Tab PO SCH (09:52)
[2018-12-30 11:36] LABS: LYMPH # 0.9 K/uL (1.0-4.3); MONO # 0.5 K/uL (0.0-0.8); NEUT # 5.5 K/uL (1.8-7.0)
[2018-12-30 11:37] LABS: BASO # 0.1 K/uL (0.0-0.2); EOS # 0.4 K/uL (0.0-0.7)
--- NOTE | 2018-12-30 15:48 | CP.PCM.PN ---
Subjective - Date & Time of Evaluation Date of Evaluation: 12/30/18 Time of Evaluation: 07:30 - Subjective Subjective: clinically same Objective - Vital Signs/Intake and Output Vital Signs (last 24 hours): Temp Pulse Resp BP Pulse Ox 97.9 F 84 20 137/83 96 12/30/18 08:14 12/30/18 08:14 12/30/18 08:14 12/30/18 08:14 12/30/18 08:14 Intake and Output: 12/30/18 12/30/18 06:59 18:59 Intake Total 450 800 Output Total 500 950 Balance -50 -150 - Medications Medications: Current Medications Acetaminophen (Tylenol 325mg Tab) 975 mg PO Q8H [facility] Last Admin: 12/30/18 11:58 Dose: Not Given Benzocaine/Menthol (Cepacol Sore Throat) 1 alex MT Q4 [facility] Last Admin: 12/30/18 11:10 Dose: Not Given Calcium Acetate (Phoslo) 667 mg PO BIDCC [facility] Last Admin: 12/30/18 07:54 Dose: 667 mg Enoxaparin Sodium (Lovenox) 40 mg SC DAILY [facility] Last Admin: 12/30/18 09:52 Dose: 40 mg Piperacillin Sod/Tazobactam Sod (Zosyn 3.375 Gm Iv Premix) 3.375 gm in 50 mls @ 100 mls/hr IVPB Q6H [facility]; Protocol Last Admin: 12/30/18 10:51 Dose: 100 mls/hr Ketorolac Tromethamine (Toradol) 30 mg IVP Q6 PRN PRN Reason: Pain, moderate (4-7) Levothyroxine Sodium (Synthroid) 75 mcg PO DAILY@0630 [facility] Last Admin: 12/30/18 05:34 Dose: 75 mcg Lidocaine (Lidoderm) 1 ea TD DAILY [facility] Last Admin: 12/30/18 09:52 Dose: 1 ea Ondansetron HCl (Zofran Inj) 4 mg IVP Q4H PRN PRN Reason: Nausea/Vomiting Pantoprazole Sodium (Protonix Ec Tab) 40 mg PO DAILY [facility] Last Admin: 12/30/18 09:52 Dose: 40 mg Rosuvastatin Calcium (Crestor) 5 mg PO HS [facility] Last Admin: 12/19/18 21:50 Dose: Not Given - Labs Labs: 12/30/18 08:25 12/30/18 08:25 PT 14.4 SECONDS (9.7-12.2) H 12/24/18 07:10 INR 1.3 12/24/18 07:10 APTT 37 SECONDS (21-34) H 12/24/18 07:10 - Constitutional Appears: Well - Head Exam Head Exam: ATRAUMATIC, NORMAL INSPECTION, NORMOCEPHALIC - Eye Exam Eye Exam: EOMI, Normal appearance, PERRL Pupil Exam: NORMAL ACCOMODATION, PERRL - ENT Exam ENT Exam: Mucous Membranes Moist, Normal Exam - Neck Exam Neck Exam: Full ROM, Normal Inspection. absent: Lymphadenopathy - Respiratory Exam Respiratory Exam: Decreased Breath Sounds - Cardiovascular Exam Cardiovascular Exam: REGULAR RHYTHM, +S1, +S2 - GI/Abdominal Exam GI & Abdominal Exam: Soft, Diminished Bowel Sounds - Rectal Exam Rectal Exam: Deferred Assessment and Plan (1) Abdominal pain Status: Acute (2) Acute pancreatitis Status: Acute (3) Cholecystitis Status: Acute (4) Abrasion of knee, bilateral Status: Acute (5) Dizziness Status: Acute (6) Foreign body in ear Status: Acute (7) Poorly controlled diabetes mellitus Status: Acute (8) Shoulder contusion Status: Acute
[2018-12-30 19:37] VITALS: O2SAT 95
[2018-12-31] MEDS: Benzocaine/Menthol (Cepacol) Lozenge MT SCH ×4 (04:03→16:04)
[2018-12-31] MEDS: Piperacill/Tazo 3.375gm in Dex 3.375 GM/50 ML BAG IVPB SCH ×3 (05:31→18:05)
[2018-12-31] MEDS: Levothyroxine 75 MCG TAB PO SCH (05:31)
[2018-12-31 06:26] LABS: BASO # 0.1 K/uL (0.0-0.2); EOS # 0.5 K/uL (0.0-0.7); EOS % 7.4 % (0.0-4.0); HEMOGLOBIN 10.6 g/dL (12.0-18.0); LYMPH # 1.1 K/uL (1.0-4.3); LYMPH % 16.5 % (20.0-40.0); MEAN CELL VOLUME 70.3 fL (80.0-94.0); MEAN CORPUSCULAR HEMOGLOBIN 21.9 pg (27.0-31.0); MEAN CORPUSCULAR HGB CONC 31.1 g/dL (33.0-37.0); MEAN PLATELET VOLUME 8.4 fL (7.2-11.7); MONO # 0.4 K/uL (0.0-0.8); NEUT # 4.3 K/uL (1.8-7.0); NEUT % 67.1 % (50.0-75.0); RBC 4.82 Mil/uL (4.40-5.90); RED CELL DISTRIBUTION WIDTH 35.9 % (11.5-14.5); WHITE BLOOD COUNT 6.4 K/uL (4.8-10.8)
[2018-12-31 06:44] LABS: ALB/GLOB RATIO 0.8 (1.0-2.1); ALBUMIN 3.2 g/dL (3.5-5.0); ALT/SGPT 16 U/L (21-72); AST/SGOT 23 U/L (17-59); BLOOD UREA NITROGEN 4 mg/dL (9-20); CALCIUM 8.9 mg/dl (8.6-10.4); GFR NON-AFRICAN AMERICAN > 60
[2018-12-31 07:45] VITALS: TEMP 97.6
[2018-12-31] MEDS: Lidocaine 5% Patch TD SCH (10:49)
[2018-12-31] MEDS: Pantoprazole 40 mg EC Tab PO SCH (10:50)
[2018-12-31] MEDS: Enoxaparin 40 mg Syringe SC SCH (10:51)
--- NOTE | 2018-12-31 11:37 | CP.PCM.PN ---
Subjective - Date & Time of Evaluation Date of Evaluation: 12/31/18 Time of Evaluation: 11:35 - Subjective Subjective: Medical Progress Note - Dr Norma Williamson's Service Patient seen and examined at bedside. Per nursing no acute events overnight. Patient is doing well, pain is controlled. He is ambulating and tolerating diet. He is awaiting CONONR placement. Objective - Vital Signs/Intake and Output Vital Signs (last 24 hours): Temp Pulse Resp BP Pulse Ox 97.6 F 90 20 120/81 95 12/31/18 07:00 12/31/18 07:00 12/31/18 07:00 12/31/18 07:00 12/31/18 07:00 Intake and Output: 12/31/18 12/31/18 06:59 18:59 Intake Total 900 Output Total 950 Balance -50 - Medications Medications: Current Medications Acetaminophen (Tylenol 325mg Tab) 975 mg PO Q8H [facility] Last Admin: 12/31/18 04:04 Dose: Not Given Benzocaine/Menthol (Cepacol Sore Throat) 1 alex MT Q4 [facility] Last Admin: 12/31/18 08:20 Dose: Not Given Calcium Acetate (Phoslo) 667 mg PO BIDCC [facility] Last Admin: 12/31/18 08:19 Dose: 667 mg Enoxaparin Sodium (Lovenox) 40 mg SC DAILY [facility] Last Admin: 12/31/18 10:51 Dose: 40 mg Piperacillin Sod/Tazobactam Sod (Zosyn 3.375 Gm Iv Premix) 3.375 gm in 50 mls @ 100 mls/hr IVPB Q6H [facility]; Protocol Last Admin: 12/31/18 05:31 Dose: 100 mls/hr Ketorolac Tromethamine (Toradol) 30 mg IVP Q6 PRN PRN Reason: Pain, moderate (4-7) Levothyroxine Sodium (Synthroid) 75 mcg PO DAILY@0630 [facility] Last Admin: 12/31/18 05:31 Dose: 75 mcg Lidocaine (Lidoderm) 1 ea TD DAILY [facility] Last Admin: 12/31/18 10:49 Dose: 1 ea Ondansetron HCl (Zofran Inj) 4 mg IVP Q4H PRN PRN Reason: Nausea/Vomiting Pantoprazole Sodium (Protonix Ec Tab) 40 mg PO DAILY [facility] Last Admin: 12/31/18 10:50 Dose: 40 mg Rosuvastatin Calcium (Crestor) 5 mg PO HS [facility] Last Admin: 12/19/18 21:50 Dose: Not Given - Labs Labs: 12/31/18 06:15 12/31/18 06:15 PT 14.4 SECONDS (9.7-12.2) H 12/24/18 07:10 INR 1.3 12/24/18 07:10 APTT 37 SECONDS (21-34) H 12/24/18 07:10 - Constitutional Appears: Non-toxic, No Acute Distress - Head Exam Head Exam: ATRAUMATIC, NORMAL INSPECTION, NORMOCEPHALIC - Eye Exam Eye Exam: EOMI, Normal appearance - ENT Exam ENT Exam: Mucous Membranes Moist - Respiratory Exam Respiratory Exam: Clear to Ausculation Bilateral, NORMAL BREATHING PATTERN. absent: Rales, Wheezes - Cardiovascular Exam Cardiovascular Exam: REGULAR RHYTHM, +S1, +S2 - GI/Abdominal Exam GI & Abdominal Exam: Distended (mildly distended abdomen), Soft, Tenderness (mild) Additional comments: Incisions c/d/i with james, abdominal dressing clean and dry - Extremities Exam Extremities Exam: absent: Calf Tenderness - Neurological Exam Neurological Exam: Alert, Awake, Oriented x3 - Psychiatric Exam Psychiatric exam: Normal Affect, Normal Mood - Skin Skin Exam: Normal Color, Warm Assessment and Plan - Assessment and Plan (Free Text) Assessment: 68 year old male with a PMHx of HLD, Diabetes, Diverticulosis, Hemorrhoids, and hypothyroidism admitted for evaluation and treatment of gallstone pancreatitis and acute cholecystitis. s/p lap Chol that was converted into ex-lap. Found to have a pericholecystic abscess. Drain was placed and has now been removed. Patient is cleared for discharge per surgical standpoint, awaiting CONNOR placement. Plan: Gallstone Pancreatitis/Acute Cholecystitis -S/P open cholecystectomy with pericholecystic abscess POD#6 -JEREMY drain removed -Tolerating GI soft diet -Encourage ambulation, hydration, ISS use -Zosyn 3.375 mg Q6H IVPB -Pain control: Tylenol 975mg PO Q8H prn -General surgery on consult, Dr Chaudhry, help appreciated -GI on consult, Dr Mccann, help appreciated Microcytic anemia -Likely due to iron deficiency -On Ferrlecit 125mg IVPB daily -S/P 2 units PRBCs -Monitor H/H daily -Stool occult was negative -Last colonoscopy in 07/2015 showed showed polyps and AVM in Ascending Colon which was treated. -Will likely need outpatient GI follow up for further evaluation History of Hypothyroidism -On synthroid 75mcg PO daily History of Vitamin B12 deficiency -Vitamin B12 >1000 -Will discontinue supplementation at this time History of Vitamin D deficiency -On ergocalciferol 50,000 units weekly (discontinued) Hypophosphotemia -Patient was started on phoslo BIDCC -Repeat phos level tomorrow History of hyperlipidemia -On crestor which is currently on hold Diabetes Mellitus -Started on low dose ISS -Restart Glipizide 10mg PO daily -Hypoglycemia protocol ordered GI/DVT ppx -Protonix 40mg IVP daily -SCDS Plan discussed with Dr Norma Soriano DO PGY-2 Dispo: Patient is medically stable and is awaiting CONNOR placement. Patient discussed with Dr Norma Soriano DO PGY-2
[2018-12-31] MEDS ORDERED: Glucagon Recombinant 1 mg Inj IM PRN (14:22)
[2018-12-31] MEDS ORDERED: Dextrose 50% SYRINGE Inj (50 ml) IV PRN (14:22)
[2018-12-31 16:14] VITALS: BP 125/65; PULSE 94
[2018-12-31] MEDS ORDERED: (Novolog) Insulin Aspart, Recombinant 100 u/ml 10 ml vial SC SCH (16:30)
--- NOTE | 2018-12-31 17:24 | CP.PCM.PN ---
Subjective - Date & Time of Evaluation Date of Evaluation: 12/31/18 Time of Evaluation: 17:22 - Subjective Subjective: SURGERY NOTE FOR DR. LANGFORD 68M seen and examined at bedside. Patient doing well, denies pain. he is having bowel function and tolerating diet. Objective - Vital Signs/Intake and Output Vital Signs (last 24 hours): Temp Pulse Resp BP Pulse Ox 97.6 F 94 H 20 125/65 95 12/31/18 16:00 12/31/18 16:00 12/31/18 16:00 12/31/18 16:00 12/31/18 16:00 Intake and Output: 12/31/18 12/31/18 06:59 18:59 Intake Total 900 530 Output Total 950 800 Balance -50 -270 - Medications Medications: Current Medications Acetaminophen (Tylenol 325mg Tab) 975 mg PO Q8H [facility] Last Admin: 12/31/18 12:37 Dose: 975 mg Benzocaine/Menthol (Cepacol Sore Throat) 1 alex MT Q4 [facility] Last Admin: 12/31/18 16:04 Dose: Not Given Calcium Acetate (Phoslo) 667 mg PO BIDCC [facility] Last Admin: 12/31/18 08:19 Dose: 667 mg Dextrose (Dextrose 50% Inj) 0 ml IV STAT PRN; Protocol PRN Reason: Hypoglycemia Protocol Dextrose (Glutose 15) 0 gm PO ONCE PRN; Protocol PRN Reason: Hypoglycemia Protocol Enoxaparin Sodium (Lovenox) 40 mg SC DAILY [facility] Last Admin: 12/31/18 10:51 Dose: 40 mg Glipizide (Glucotrol) 10 mg PO ACB [facility] Glucagon (Glucagen Diagnostic Kit) 0 mg IM STAT PRN; Protocol PRN Reason: Hypoglycemia Protocol Piperacillin Sod/Tazobactam Sod (Zosyn 3.375 Gm Iv Premix) 3.375 gm in 50 mls @ 100 mls/hr IVPB Q6H [facility]; Protocol Last Admin: 12/31/18 12:31 Dose: 100 mls/hr Dextrose (Dextrose 5% In Water 1000 Ml) 1,000 mls @ 0 mls/hr IV .Q0M PRN; Protocol PRN Reason: Hypoglycemia Protocol Insulin Aspart (Novolog) 0 unit SC ACHS [facility]; Protocol Levothyroxine Sodium (Synthroid) 75 mcg PO DAILY@0630 [facility] Last Admin: 12/31/18 05:31 Dose: 75 mcg Lidocaine (Lidoderm) 1 ea TD DAILY [facility] Last Admin: 12/31/18 10:49 Dose: 1 ea Ondansetron HCl (Zofran Inj) 4 mg IVP Q4H PRN PRN Reason: Nausea/Vomiting Pantoprazole Sodium (Protonix Ec Tab) 40 mg PO DAILY [facility] Last Admin: 12/31/18 10:50 Dose: 40 mg Rosuvastatin Calcium (Crestor) 5 mg PO HS [facility] Last Admin: 12/19/18 21:50 Dose: Not Given - Labs Labs: 12/31/18 06:15 12/31/18 06:15 PT 14.4 SECONDS (9.7-12.2) H 12/24/18 07:10 INR 1.3 12/24/18 07:10 APTT 37 SECONDS (21-34) H 12/24/18 07:10 - Constitutional Appears: Non-toxic, No Acute Distress - Respiratory Exam Respiratory Exam: Clear to Ausculation Bilateral, NORMAL BREATHING PATTERN - Cardiovascular Exam Cardiovascular Exam: REGULAR RHYTHM, +S1, +S2 - GI/Abdominal Exam GI & Abdominal Exam: Soft. absent: Distended, Firm, Guarding, Rigid, Tenderness, Rebound Additional comments: incisions CDI - Neurological Exam Neurological Exam: Alert, Awake Assessment and Plan - Assessment and Plan (Free Text) Assessment: 68M s/p open pericholecystic abscess drainage. POD#6 Plan: - Ambulate - clear for DC form surgical standpoint Further recs discussed with Dr. Wolf Leung, PGY3
--- NOTE | 2018-12-31 19:55 | CP.PCM.PN ---
Subjective - Date & Time of Evaluation Date of Evaluation: 12/31/18 Time of Evaluation: 07:15 - Subjective Subjective: clinically same Objective - Vital Signs/Intake and Output Vital Signs (last 24 hours): Temp Pulse Resp BP Pulse Ox 97.6 F 94 H 20 125/65 95 12/31/18 16:00 12/31/18 16:00 12/31/18 16:00 12/31/18 16:00 12/31/18 16:00 Intake and Output: 12/31/18 01/01/19 18:59 06:59 Intake Total 530 Output Total 800 Balance -270 - Medications Medications: Current Medications Acetaminophen (Tylenol 325mg Tab) 975 mg PO Q8H [facility] Last Admin: 12/31/18 12:37 Dose: 975 mg Benzocaine/Menthol (Cepacol Sore Throat) 1 alex MT Q4 [facility] Last Admin: 12/31/18 16:04 Dose: Not Given Calcium Acetate (Phoslo) 667 mg PO BIDCC [facility] Last Admin: 12/31/18 18:04 Dose: 667 mg Dextrose (Dextrose 50% Inj) 0 ml IV STAT PRN; Protocol PRN Reason: Hypoglycemia Protocol Dextrose (Glutose 15) 0 gm PO ONCE PRN; Protocol PRN Reason: Hypoglycemia Protocol Enoxaparin Sodium (Lovenox) 40 mg SC DAILY [facility] Last Admin: 12/31/18 10:51 Dose: 40 mg Glipizide (Glucotrol) 10 mg PO ACB [facility] Glucagon (Glucagen Diagnostic Kit) 0 mg IM STAT PRN; Protocol PRN Reason: Hypoglycemia Protocol Piperacillin Sod/Tazobactam Sod (Zosyn 3.375 Gm Iv Premix) 3.375 gm in 50 mls @ 100 mls/hr IVPB Q6H [facility]; Protocol Last Admin: 12/31/18 18:05 Dose: Not Given Dextrose (Dextrose 5% In Water 1000 Ml) 1,000 mls @ 0 mls/hr IV .Q0M PRN; Protocol PRN Reason: Hypoglycemia Protocol Insulin Aspart (Novolog) 0 unit SC ACHS [facility]; Protocol Last Admin: 12/31/18 18:04 Dose: Not Given Levothyroxine Sodium (Synthroid) 75 mcg PO DAILY@0630 [facility] Last Admin: 12/31/18 05:31 Dose: 75 mcg Lidocaine (Lidoderm) 1 ea TD DAILY [facility] Last Admin: 12/31/18 10:49 Dose: 1 ea Ondansetron HCl (Zofran Inj) 4 mg IVP Q4H PRN PRN Reason: Nausea/Vomiting Pantoprazole Sodium (Protonix Ec Tab) 40 mg PO DAILY [facility] Last Admin: 12/31/18 10:50 Dose: 40 mg Rosuvastatin Calcium (Crestor) 5 mg PO HS [facility] Last Admin: 12/19/18 21:50 Dose: Not Given - Labs Labs: 12/31/18 06:15 12/31/18 06:15 PT 14.4 SECONDS (9.7-12.2) H 12/24/18 07:10 INR 1.3 12/24/18 07:10 APTT 37 SECONDS (21-34) H 12/24/18 07:10 - Constitutional Appears: Well - Head Exam Head Exam: ATRAUMATIC, NORMAL INSPECTION, NORMOCEPHALIC - Eye Exam Eye Exam: EOMI, Normal appearance, PERRL Pupil Exam: NORMAL ACCOMODATION, PERRL - ENT Exam ENT Exam: Mucous Membranes Moist, Normal Exam - Neck Exam Neck Exam: Full ROM, Normal Inspection. absent: Lymphadenopathy - Respiratory Exam Respiratory Exam: Decreased Breath Sounds - Cardiovascular Exam Cardiovascular Exam: REGULAR RHYTHM, +S1, +S2 - GI/Abdominal Exam GI & Abdominal Exam: Soft, Diminished Bowel Sounds - Rectal Exam Rectal Exam: Deferred Assessment and Plan (1) Abdominal pain Status: Acute (2) Acute pancreatitis Status: Acute (3) Cholecystitis Status: Acute (4) Abrasion of knee, bilateral Status: Acute (5) Dizziness Status: Acute (6) Foreign body in ear Status: Acute (7) Poorly controlled diabetes mellitus Status: Acute (8) Shoulder contusion Status: Acute
== END 2018-12-31 20:15 | DRG 408 ==
LOC: C.ER 20:59 → C.3T 12-19 01:56
PROVIDERS: ADMIT Internal Medicine Nephrology; ATTEND Internal Medicine Nephrology
PROC: 0WJG4ZZ Inspection of Peritoneal Cavity, Percutaneous Endoscopic Approach (ICD-10-PCS; 2018-12-25)
PROC: 0DNU0ZZ Release Omentum, Open Approach (ICD-10-PCS; 2018-12-25)
PROC: 0F9400Z Drainage of Gallbladder with Drainage Device, Open Approach (ICD-10-PCS; principal; 2018-12-25 12:30)
DX: K80.00 Calculus of gallbladder with acute cholecystitis without obstruction (principal); K85.10 Biliary acute pancreatitis without necrosis or infection; K66.0 Peritoneal adhesions (postprocedural) (postinfection); E03.9 Hypothyroidism, unspecified; E78.00 Pure hypercholesterolemia, unspecified; I10 Essential (primary) hypertension; R74.0 Nonspecific elevation of levels of transaminase and lactic acid dehydrogenase [LDH]; Z53.31 Laparoscopic surgical procedure converted to open procedure; E11.9 Type 2 diabetes mellitus without complications; K82.8 Other specified diseases of gallbladder; K86.89 Other specified diseases of pancreas; K64.9 Unspecified hemorrhoids; D50.0 Iron deficiency anemia secondary to blood loss (chronic)

== ENCOUNTER 2019-02-10 11:19 | Observation (INO) | payer MEDICARE ==
[2019-02-10 11:20] VITALS: BMI 30.9
--- NOTE | 2019-02-10 12:13 | C.PDOC ---
History Of Present Illness 68 years old male presents to ED for complaints of rectam bleeding that began 10 days ago. Patient associated associated generalized weakness and mild shaking. Denies chest pain, shortness of breath, LOC, or any other physical complaints. PMD: * [place] Monae Time Seen by Provider: 02/10/19 11:59 Chief Complaint (Nursing): Abdominal Pain History Per: Patient History/Exam Limitations: no limitations Onset/Duration Of Symptoms: Hrs Current Symptoms Are (Timing): Still Present Associated Symptoms: denies: Fever, Chills Exacerbating Factors: None Alleviating Factors: None Last Bowel Movement: Today Recent travel outside of the [place]: No Past Medical History Reviewed: Historical Data, Nursing Documentation, Vital Signs Vital Signs: Last Vital Signs Temp 97.3 F L 02/10/19 11:22 Pulse 108 H 02/10/19 11:22 Resp 20 02/10/19 11:22 BP 138/90 02/10/19 11:22 Pulse Ox 99 02/10/19 11:22 - Medical History PMH: Diabetes, HTN, Hypercholesterolemia, Hypothyroidism Surgical History: Cholecystectomy Denies: Pacemaker - [facility] Procedures (12/19/18) DRAINAGE OF GALLBLADDER WITH DRAINAGE DEVICE, OPEN APPROACH (12/19/18) INSPECTION OF PERITONEAL CAVITY, PERC ENDO APPROACH (12/19/18) Family History: States: Unknown Family Hx - Social History Hx Alcohol Use: No Hx Substance Use: No - Immunization History Hx Tetanus Toxoid Vaccination: No Hx Influenza Vaccination: Yes Hx Pneumococcal Vaccination: No Review Of Systems Except As Marked, All Systems Reviewed And Found Negative. Cardiovascular: Negative for: Chest Pain Respiratory: Negative for: Shortness of Breath Physical Exam - Physical Exam Additional Physical Exam Comments: Constitutional: No acute distress. Head: Normocephalic. Atraumatic. Eyes: PERRL. ENT: Moist mucous membranes. Neck: Supple. Cardiovascular: Regular rate. Radial pulse 2+ bilaterally. Chest: No tenderness. Respiratory: Clear to auscultation bilaterally. GI: Soft. Nontender. Nondistended. Rectal: Multiple hemorrhoids. No thrombosis. No active external bleeding. Scant red blood on digital rectal exam. Back: No CVA tenderness. Musculoskeletal: No tenderness or swelling of extremities. Skin: No rash. Neurologic: Alert, no focal deficit. ED Course And Treatment - Laboratory Results Result Diagrams: 02/10/19 12:22 02/10/19 12:22 O2 Sat by Pulse Oximetry: 99 (RA) Pulse Ox Interpretation: Normal Medical Decision Making Medical Decision Making: Plan: * BBK * Blood work Paty (scribe) was poured wall foreman for rectal exam. EKG NSR 74 bpm, RBBB, no ST elevations. Patient continues to feel weak, as if he is about to pass out. Disposition - Disposition Disposition: HOSPITALIZED Disposition Time: 13:08 Condition: FAIR Forms: [facility] (Malay) - Clinical Impression Clinical Impression: Near syncope, GI bleed, External hemorrhoids - Scribe Statement The provider has reviewed the documentation as recorded by the Scribe Paty Reyes All medical record entries made by the Scribe were at my direction and personally dictated by me. I have reviewed the chart and agree that the record accurately reflects my personal performance of the history, physical exam, medical decision making, and the department course for this patient. I have also personally directed, reviewed, and agree with the discharge instructions and disposition.
[2019-02-10 12:27] LABS: BASO # 0.1 K/uL (0.0-0.2); BASO % 1.1 % (0.0-2.0); EOS # 0.1 K/uL (0.0-0.7); EOS % 2.4 % (0.0-4.0); HEMOGLOBIN 13.6 g/dL (12.0-18.0); LYMPH # 1.3 K/uL (1.0-4.3); LYMPH % 22.1 % (20.0-40.0); MEAN CELL VOLUME 82.4 fL (80.0-94.0); MEAN CORPUSCULAR HEMOGLOBIN 26.9 pg (27.0-31.0); MEAN CORPUSCULAR HGB CONC 32.6 g/dL (33.0-37.0); MEAN PLATELET VOLUME 8.5 fL (7.2-11.7); MONO # 0.3 K/uL (0.0-0.8); MONO % 4.5 % (0.0-10.0); NEUT # 4.2 K/uL (1.8-7.0); NEUT % 69.9 % (50.0-75.0); RBC 5.07 Mil/uL (4.40-5.90); RED CELL DISTRIBUTION WIDTH 26.1 % (11.5-14.5)
[2019-02-10 12:35] LABS: INR 1.1; PROTHROMBIN TIME 11.6 SECONDS (9.7-12.2)
[2019-02-10 12:40] LABS: ALB/GLOB RATIO 1.2 (1.0-2.1); ALBUMIN 3.9 g/dL (3.5-5.0); ALT/SGPT 26 U/L (21-72); AST/SGOT 26 U/L (17-59); BLOOD UREA NITROGEN 12 mg/dL (9-20); CALCIUM 9.2 mg/dl (8.6-10.4); GFR NON-AFRICAN AMERICAN > 60
--- NOTE | 2019-02-10 14:14 | CP.PCM.HP ---
History of Present Illness - History of Present Illness History of Present Illness: 68-year-old male present to the emergency room with the lower abdominal pale with something prolapsing out from the rectal area The is sitting there Patient with a history of hypertension high cholesterol hypothyroidism brought in because of the rectal bleeding for last 10 days and a generalized weakness patient also complains of possible unquantified fever with some streaking although denies nausea vomiting shortness of breath fever chills sweating case discussed with the ER attending Case discussed with the family eventually patient decided to get hospitalized Medical History PMH: Diabetes, HTN, Hypercholesterolemia, Hypothyroidism Surgical History: Cholecystectomy Denies: Pacemaker - [facility] Procedures (12/19/18) DRAINAGE OF GALLBLADDER WITH DRAINAGE DEVICE, OPEN APPROACH (12/19/18) INSPECTION OF PERITONEAL CAVITY, PERC ENDO APPROACH (12/19/18) Family History: States: Unknown Family Hx - Social History Hx Alcohol Use: No Hx Substance Use: No Present on Admission - Present on Admission Any Indicators Present on Admission: No Past Patient History - Infectious Disease Hx of Infectious Diseases: None - Past Medical History & Family History Past Medical History?: Yes - Past Social History Smoking Status: Never Smoked - CARDIAC Hx Hypercholesterolemia: Yes Hx Hypertension: Yes Hx Pacemaker: No - NEUROLOGICAL Hx Paralysis: No Other/Comment: HX TBI - ENDOCRINE/METABOLIC Hx Hypothyroidism: Yes - HEMATOLOGICAL/ONCOLOGICAL Hx Blood Transfusions: Yes Hx Blood Transfusion Reaction: No - MUSCULOSKELETAL/RHEUMATOLOGICAL Hx Musculoskeletal Disorders: No Hx Back Pain: Yes Hx Falls: Yes - PSYCHIATRIC Hx Substance Use: No - SURGICAL HISTORY Hx Cholecystectomy: Yes - ANESTHESIA Hx Anesthesia: Yes Hx Anesthesia Reactions: No Hx Malignant Hyperthermia: No Meds Allergies/Adverse Reactions: Allergies Allergy/AdvReac Type Severity Reaction Status Date / Time No Known Allergies Allergy Verified 02/10/19 11:28 Physical Exam - Constitutional Appears: Well - Head Exam Head Exam: ATRAUMATIC, NORMAL INSPECTION, NORMOCEPHALIC - Eye Exam Eye Exam: EOMI, Normal appearance, PERRL Pupil Exam: NORMAL ACCOMODATION, PERRL - ENT Exam ENT Exam: Mucous Membranes Moist, Normal Exam - Neck Exam Neck exam: Positive for: Normal Inspection - Respiratory Exam Respiratory Exam: Decreased Breath Sounds - Cardiovascular Exam Cardiovascular Exam: REGULAR RHYTHM, +S1, +S2 - GI/Abdominal Exam GI & Abdominal Exam: Diminished Bowel Sounds, Soft - Rectal Exam Rectal Exam: Deferred - Neurological Exam Neurological exam: Oriented x3 Results - Vital Signs Recent Vital Signs: Last Vital Signs Temp 97.3 F L 02/10/19 11:22 Pulse 80 02/10/19 13:13 Resp 16 02/10/19 13:13 BP 106/72 02/10/19 13:13 Pulse Ox 99 02/10/19 13:16 - Labs Result Diagrams: 02/10/19 12:22 02/10/19 12:22 Labs: Laboratory Results - last 24 hr 02/10/19 02/10/19 02/10/19 12:22 12:22 12:22 WBC 6.0 RBC 5.07 Hgb 13.6 D Hct 41.8 MCV 82.4 D MCH 26.9 L MCHC 32.6 L RDW 26.1 H Plt Count 258 D MPV 8.5 Neut % (Auto) 69.9 Lymph % (Auto) 22.1 [place] % (Auto) 4.5 Eos % (Auto) 2.4 Baso % (Auto) 1.1 Neut # (Auto) 4.2 Lymph # (Auto) 1.3 [place] # (Auto) 0.3 Eos # (Auto) 0.1 Baso # (Auto) 0.1 PT 11.6 INR 1.1 APTT 35.0 H Sodium 142 Potassium 4.0 Chloride 104 Carbon Dioxide 29 Anion Gap 14 BUN 12 Creatinine 0.8 Est GFR ( Amer) > 60 Est GFR (Non-Af Amer) > 60 Random Glucose 138 H Calcium 9.2 Total Bilirubin 0.6 AST 26 ALT 26 Alkaline Phosphatase 129 H Troponin I < 0.0120 Total Protein 7.1 Albumin 3.9 Globulin 3.2 Albumin/Globulin Ratio 1.2 Blood Type 02/10/19 12:23 WBC RBC Hgb Hct MCV MCH MCHC RDW Plt Count MPV Neut % (Auto) Lymph % (Auto) [place] % (Auto) Eos % (Auto) Baso % (Auto) Neut # (Auto) Lymph # (Auto) [place] # (Auto) Eos # (Auto) Baso # (Auto) PT INR APTT Sodium Potassium Chloride Carbon Dioxide Anion Gap BUN Creatinine Est GFR ( Amer) Est GFR (Non-Af Amer) Random Glucose Calcium Total Bilirubin AST ALT Alkaline Phosphatase Troponin I Total Protein Albumin Globulin Albumin/Globulin Ratio Blood Type A POSITIVE Assessment & Plan - Assessment and Plan (Free Text) Plan: needs surgery for hemorrhoids d/w pt and family who is bedside pt has been seen by ig gi with dr. linares surg itwh dr. fabian protonix hold lovenox scd med renciliation d.w er staff cbc cmp stable BUN/creatinine twelve 9.8 Hemoglobin hematocrit is 13.6 and 41.8 EKG normal sinus rhythm 74 bpm RBBB IV fluid Crestor Metformin Glipizide Sitagliptin Levoxyl GI consult Surgical consult CBC CMP every day As ordered
--- NOTE | 2019-02-10 15:40 | RAD ---
Date of service: 02/10/2019 HISTORY: near syncope COMPARISON: 12/26/2018 TECHNIQUE: 1 view obtained. FINDINGS: LUNGS: No active pulmonary disease. PLEURA: No significant pleural effusion identified, no pneumothorax apparent. CARDIOVASCULAR: No aortic atherosclerotic calcification present. Normal cardiac size. No pulmonary vascular congestion. OSSEOUS STRUCTURES: No significant abnormalities. VISUALIZED UPPER ABDOMEN: Normal. OTHER FINDINGS: None. IMPRESSION: No active disease.
[2019-02-11] MEDS: Levothyroxine 75 MCG TAB PO SCH (08:00)
[2019-02-11] MEDS ORDERED: Lidocaine 2% Jelly (30 ml) TOP PRN (08:57)
--- NOTE | 2019-02-11 09:09 | CP.PCM.CON ---
<Amarilis Ely - Last Filed: 02/11/19 09:13> History of Present Illness - History of Present Illness History of Present Illness: GI Fellow PGY 5 Patient is a 68yo male with PMHx significant for dyslipidemia, diabetes, pericholecystic abscess who presented to the ED with complaints of rectal bleed ing for two weeks. Pt reports he notices bright red blood drops 2-3 after having a bowel movement. He has rectal pain to ongoing constipation which lasted for >3 week with intermittent passage of small amounts of stool. In the last 3-4 days, pain intensified and was located mainly in the rectum. He did not take any medication to alleviate symptoms and noted that he is avoiding bowl movements due to discomfort. Denies any nausea, vomiting, weight loss, diarrhea, hematochezia, melena. 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) FHx: Discussed with patient and denies any significant family history Social: Denies tobacco, EtOH or illicit drug use Endo: 07/2015 - Colonoscopy - AVM ascending colon s/p APC, diverticulosis, descending colon tubular adenoma, internal hemorrhoids Past Patient History - Infectious Disease Hx of Infectious Diseases: None - Past Medical History & Family History Past Medical History?: Yes - Past Social History Smoking Status: Never Smoked - CARDIAC Hx Hypercholesterolemia: Yes Hx Hypertension: Yes Hx Pacemaker: No - NEUROLOGICAL Hx Paralysis: No Other/Comment: HX TBI - ENDOCRINE/METABOLIC Hx Hypothyroidism: Yes - HEMATOLOGICAL/ONCOLOGICAL Hx Blood Transfusions: Yes Hx Blood Transfusion Reaction: No - MUSCULOSKELETAL/RHEUMATOLOGICAL Hx Musculoskeletal Disorders: No Hx Back Pain: Yes Hx Falls: Yes - PSYCHIATRIC Hx Substance Use: No - SURGICAL HISTORY Hx Cholecystectomy: Yes - ANESTHESIA Hx Anesthesia: Yes Hx Anesthesia Reactions: No Hx Malignant Hyperthermia: No Meds Allergies/Adverse Reactions: Allergies Allergy/AdvReac Type Severity Reaction Status Date / Time No Known Allergies Allergy Verified 02/10/19 11:28 - Medications Medications: Current Medications Docusate Sodium (Colace) 100 mg PO TID [facility] Glipizide (Glucotrol) 10 mg PO ACB [facility] Last Admin: 02/11/19 08:00 Dose: Not Given Hydrocortisone (Anusol-Hc) 0 gm SD BID [facility] Levothyroxine Sodium (Synthroid) 75 mcg PO ACB [facility] Last Admin: 02/11/19 08:00 Dose: Not Given Lidocaine HCl (Xylocaine 2%) 1 ea TOP BID PRN PRN Reason: Constipation Metformin HCl (Glucophage) 1,000 mg PO BID [facility] Last Admin: 02/10/19 18:41 Dose: 1,000 mg Rosuvastatin Calcium (Crestor) 5 mg PO HS [facility] Last Admin: 02/10/19 22:22 Dose: 5 mg Sitagliptin Phosphate (Januvia) 50 mg PO BID [facility] Last Admin: 02/10/19 18:41 Dose: 50 mg Physical Exam - Constitutional Appears: Non-toxic, No Acute Distress - Head Exam Head Exam: ATRAUMATIC, NORMAL INSPECTION - Eye Exam Eye Exam: EOMI, Normal appearance, PERRL - ENT Exam ENT Exam: Mucous Membranes Dry, Normal Exam - Neck Exam Neck exam: Positive for: Full Rom - Respiratory Exam Respiratory Exam: Clear to Auscultation Bilateral, NORMAL BREATHING PATTERN - Cardiovascular Exam Cardiovascular Exam: REGULAR RHYTHM, RRR, +S1, +S2 - GI/Abdominal Exam GI & Abdominal Exam: Normal Bowel Sounds, Soft. absent: Distended, Firm, Guarding, Organomegaly, Tenderness - Rectal Exam Rectal Exam: Hemorrhoids. absent: Bloody Stool Additional comments: internal hemorrhoids no rectal bleeding anal fissure Results - Vital Signs Recent Vital Signs: Last Vital Signs Temp 97.7 F 02/11/19 07:00 Pulse 92 H 02/11/19 08:04 Resp 20 02/11/19 07:00 BP 110/75 02/11/19 07:00 Pulse Ox 96 02/11/19 07:00 - Labs Result Diagrams: 02/10/19 12:22 02/10/19 12:22 Labs: Laboratory Results - last 24 hr 02/10/19 02/10/19 02/10/19 12:22 12:22 12:22 WBC 6.0 RBC 5.07 Hgb 13.6 D Hct 41.8 MCV 82.4 D MCH 26.9 L MCHC 32.6 L RDW 26.1 H Plt Count 258 D MPV 8.5 Neut % (Auto) 69.9 Lymph % (Auto) 22.1 [place] % (Auto) 4.5 Eos % (Auto) 2.4 Baso % (Auto) 1.1 Neut # (Auto) 4.2 Lymph # (Auto) 1.3 [place] # (Auto) 0.3 Eos # (Auto) 0.1 Baso # (Auto) 0.1 PT 11.6 INR 1.1 APTT 35.0 H Sodium 142 Potassium 4.0 Chloride 104 Carbon Dioxide 29 Anion Gap 14 BUN 12 Creatinine 0.8 Est GFR ( Amer) > 60 Est GFR (Non-Af Amer) > 60 POC Glucose (mg/dL) Random Glucose 138 H Calcium 9.2 Total Bilirubin 0.6 AST 26 ALT 26 Alkaline Phosphatase 129 H Troponin I < 0.0120 Total Protein 7.1 Albumin 3.9 Globulin 3.2 Albumin/Globulin Ratio 1.2 Blood Type Antibody Screen Antibody Identification Antigen Identification 02/10/19 02/10/19 02/10/19 12:23 16:50 21:22 WBC RBC Hgb Hct MCV MCH MCHC RDW Plt Count MPV Neut % (Auto) Lymph % (Auto) [place] % (Auto) Eos % (Auto) Baso % (Auto) Neut # (Auto) Lymph # (Auto) [place] # (Auto) Eos # (Auto) Baso # (Auto) PT INR APTT Sodium Potassium Chloride Carbon Dioxide Anion Gap BUN Creatinine Est GFR ( Amer) Est GFR (Non-Af Amer) POC Glucose (mg/dL) 174 H 103 Random Glucose Calcium Total Bilirubin AST ALT Alkaline Phosphatase Troponin I Total Protein Albumin Globulin Albumin/Globulin Ratio Blood Type A POSITIVE Antibody Screen Positive Antibody Identification Non Specific Antibody Antigen Identification E Antigen - NEGATIVE 02/11/19 06:26 WBC RBC Hgb Hct MCV MCH MCHC RDW Plt Count MPV Neut % (Auto) Lymph % (Auto) [place] % (Auto) Eos % (Auto) Baso % (Auto) Neut # (Auto) Lymph # (Auto) [place] # (Auto) Eos # (Auto) Baso # (Auto) PT INR APTT Sodium Potassium Chloride Carbon Dioxide Anion Gap BUN Creatinine Est GFR ( Amer) Est GFR (Non-Af Amer) POC Glucose (mg/dL) 110 Random Glucose Calcium Total Bilirubin AST ALT Alkaline Phosphatase Troponin I Total Protein Albumin Globulin Albumin/Globulin Ratio Blood Type Antibody Screen Antibody Identification Antigen Identification Assessment & Plan - Assessment and Plan (Free Text) Assessment: 1. Rectal bleeding 2. Internal Hemorrhoids 3. Anal fissure 4. Constipation Plan: -Pt with internal hemorrhoids and anal fissure causing rectal pain and bleeding -Recommend Anusol suppository for internal hemorrhoids Grade 2 and lidocaine cream for anal fissure -Pt with constipation, needs bowel regimen, Colace bid -Hgb stable, no active GI bleeding -Pt will need outpatient colonoscopy with history of adenoma -Will continue to follow <Hoang Mccann - Last Filed: 02/11/19 16:44> Meds - Medications Medications: Current Medications Docusate Sodium (Colace) 100 mg PO TID [facility] Last Admin: 02/11/19 14:00 Dose: 100 mg Glipizide (Glucotrol) 10 mg PO ACB [facility] Last Admin: 02/11/19 08:00 Dose: Not Given Hydrocortisone (Anusol-Hc) 0 gm SD BID [facility] Last Admin: 02/11/19 10:35 Dose: 1 applic Levothyroxine Sodium (Synthroid) 75 mcg PO ACB [facility] Last Admin: 02/11/19 08:00 Dose: Not Given Lidocaine HCl (Xylocaine 2%) 1 ea TOP BID PRN PRN Reason: Other Metformin HCl (Glucophage) 1,000 mg PO BID [facility] Last Admin: 02/11/19 10:07 Dose: 1,000 mg Rosuvastatin Calcium (Crestor) 5 mg PO HS [facility] Last Admin: 02/10/19 22:22 Dose: 5 mg Sitagliptin Phosphate (Januvia) 50 mg PO BID [facility] Last Admin: 02/11/19 10:01 Dose: 50 mg Results - Vital Signs Recent Vital Signs: Last Vital Signs Temp 97.3 F L 02/11/19 15:05 Pulse 88 02/11/19 16:00 Resp 20 02/11/19 15:05 BP 110/75 02/11/19 15:05 Pulse Ox 98 02/11/19 16:00 - Labs Result Diagrams: 02/10/19 12:22 02/10/19 12:22 Labs: Laboratory Results - last 24 hr 02/10/19 02/10/19 02/11/19 16:50 21:22 06:26 POC Glucose (mg/dL) 174 H 103 110 Attending/Attestation - Attestation I have personally seen and examined this patient.: Yes I have fully participated in the care of the patient.: Yes I have reviewed all pertinent clinical information: Yes Notes (Text): 02/11/19 16:39 I have seen and examined patient with GI fellow. Agree with above documentation with the following additions. In brief, this is a 68 year old male with history of DM, hyperlipidemia, TBI, who presents to hospital with complaint of rectal bleeding. He reports recent constipation for the past one week with significant straining during defecation with passage of hard stool and visible blood. He otherwise denies abdominal pain, nausea, vomiting, fever/chills, weight loss. He had a colonoscopy in 2014 which showed AVM, diverticulosis, adenomatous polyp, and hemorrhoids. Additional physical examination: Psych: mood, affect appropriate Neuro: AAO x 3, CN 3-12 intact Skin: warm, dry, intact, no suspicious lesions DM Hyperlipidemia TBI Rectal bleeding - likely secondary to anal fissure present on examination today. No fresh blood in rectal vault. - Diet as tolerated - Suggest stool softner therapy - Recommend topical lidocaine and anusol treatment to anal area twice daily - Daily sitz bath - Encourage increased fiber and water in diet - Patient would benefit from additional outpatient GI follow up, will continue to monitor patient clinical course
[2019-02-11] MEDS: Hydrocortisone 2.5% Rectal Cream(30 gm) PR SCH ×2 (10:35→17:57)
--- NOTE | 2019-02-11 12:22 | CARD ---
APPROVED REPORT Date of service: 02/10/2019 EKG Measurement Heart [id number] <Conclusion> Normal sinus rhythm Indeterminate axis Right bundle branch block Inferior infarct, age undetermined Abnormal ECG
--- NOTE | 2019-02-11 19:25 | CP.PCM.PN ---
Subjective - Subjective Subjective: patient examined to Objective - Vital Signs/Intake and Output Vital Signs (last 24 hours): Temp Pulse Resp BP Pulse Ox 97.3 F L 88 20 110/75 98 02/11/19 15:05 02/11/19 16:00 02/11/19 15:05 02/11/19 15:05 02/11/19 16:00 Intake and Output: 02/11/19 02/12/19 18:59 06:59 Intake Total 350 Balance 350 - Medications Medications: Current Medications Docusate Sodium (Colace) 100 mg PO TID [facility] Last Admin: 02/11/19 17:56 Dose: 100 mg Glipizide (Glucotrol) 10 mg PO ACB [facility] Last Admin: 02/11/19 08:00 Dose: Not Given Hydrocortisone (Anusol-Hc) 0 gm TX BID [facility] Last Admin: 02/11/19 17:57 Dose: 1 applic Levothyroxine Sodium (Synthroid) 75 mcg PO ACB [facility] Last Admin: 02/11/19 08:00 Dose: Not Given Lidocaine HCl (Xylocaine 2%) 1 ea TOP BID PRN PRN Reason: Other Metformin HCl (Glucophage) 1,000 mg PO BID [facility] Last Admin: 02/11/19 17:56 Dose: 1,000 mg Rosuvastatin Calcium (Crestor) 5 mg PO HS [facility] Last Admin: 02/10/19 22:22 Dose: 5 mg Sitagliptin Phosphate (Januvia) 50 mg PO BID [facility] Last Admin: 02/11/19 17:56 Dose: 50 mg - Labs Labs: 02/10/19 12:22 02/10/19 12:22 PT 11.6 SECONDS (9.7-12.2) 02/10/19 12:22 INR 1.1 02/10/19 12:22 APTT 35.0 SECONDS (21-34) H 02/10/19 12:22
--- NOTE | 2019-02-12 07:32 | CP.PCM.PN ---
<Amarilis Ely - Last Filed: 02/12/19 07:28> Subjective - Date & Time of Evaluation Date of Evaluation: 02/12/19 Time of Evaluation: 07:00 - Subjective Subjective: GI Fellow PGY5 Progress Note Pt seen and examined at bedside, pt reports decreased rectal pain and no further rectal bleeding Pt reports one small soft BM yesterday with no rectal pain. Tolerating diet. Pt scheduled for hemorrhoidectomy today per RN. ROS: A 12pt ROS was negative except as above. Objective - Vital Signs/Intake and Output Vital Signs (last 24 hours): Temp Pulse Resp BP Pulse Ox 98.6 F 90 20 112/67 98 02/11/19 23:40 02/11/19 23:40 02/11/19 23:40 02/11/19 23:40 02/12/19 04:30 Intake and Output: 02/12/19 02/12/19 06:59 18:59 Output Total 700 Balance -700 - Medications Medications: Current Medications Docusate Sodium (Colace) 100 mg PO TID [facility] Last Admin: 02/11/19 17:56 Dose: 100 mg Glipizide (Glucotrol) 10 mg PO ACB [facility] Last Admin: 02/11/19 08:00 Dose: Not Given Hydrocortisone (Anusol-Hc) 0 gm [place] BID [facility] Last Admin: 02/11/19 17:57 Dose: 1 applic Levothyroxine Sodium (Synthroid) 75 mcg PO ACB [facility] Last Admin: 02/11/19 08:00 Dose: Not Given Lidocaine HCl (Xylocaine 2%) 1 ea TOP BID [facility] Metformin HCl (Glucophage) 1,000 mg PO BID [facility] Last Admin: 02/11/19 17:56 Dose: 1,000 mg Rosuvastatin Calcium (Crestor) 5 mg PO HS [facility] Last Admin: 02/11/19 21:21 Dose: 5 mg Sitagliptin Phosphate (Januvia) 50 mg PO BID [facility] Last Admin: 02/11/19 17:56 Dose: 50 mg - Labs Labs: 02/10/19 12:22 02/10/19 12:22 PT 11.6 SECONDS (9.7-12.2) 02/10/19 12:22 INR 1.1 02/10/19 12:22 APTT 35.0 SECONDS (21-34) H 02/10/19 12:22 - Constitutional Appears: Non-toxic, No Acute Distress - Head Exam Head Exam: ATRAUMATIC, NORMAL INSPECTION, NORMOCEPHALIC - Eye Exam Eye Exam: EOMI, Normal appearance, PERRL - ENT Exam ENT Exam: Mucous Membranes Moist, Normal Exam - Neck Exam Neck Exam: Full ROM, Normal Inspection - Respiratory Exam Respiratory Exam: Clear to Ausculation Bilateral, NORMAL BREATHING PATTERN - Cardiovascular Exam Cardiovascular Exam: RRR, +S1, +S2 - GI/Abdominal Exam GI & Abdominal Exam: Soft, Normal Bowel Sounds. absent: Firm, Tenderness - Rectal Exam Rectal Exam: Deferred - Extremities Exam Extremities Exam: Full ROM, Normal Inspection - Back Exam Back Exam: NORMAL INSPECTION - Neurological Exam Neurological Exam: Alert, Awake, Oriented x3 - Psychiatric Exam Psychiatric exam: Normal Affect, Normal Mood - Skin Skin Exam: Dry, Intact, Normal Color, Warm Assessment and Plan - Assessment and Plan (Free Text) Assessment: 1. Rectal bleeding 2. Internal Hemorrhoids 3. Anal fissure 4. Constipation Plan: -Pt with internal hemorrhoids and anal fissure causing rectal pain and bleeding -Continue Anusol suppository for internal hemorrhoids Grade 2 and lidocaine cream for anal fissure -Pt with constipation, needs bowel regimen, Colace bid -Hgb stable, no active GI bleeding -Pt will need outpatient colonoscopy with history of adenoma -Sitz bath daily -Diet high in fiber and increase water intake -Will continue to follow <Hoang Mccann - Last Filed: 02/12/19 08:43> Objective - Vital Signs/Intake and Output Vital Signs (last 24 hours): Temp Pulse Resp BP Pulse Ox 98.6 F 90 20 112/67 98 02/11/19 23:40 02/11/19 23:40 02/11/19 23:40 02/11/19 23:40 02/12/19 04:30 Intake and Output: 02/12/19 02/12/19 06:59 18:59 Output Total 700 Balance -700 - Medications Medications: Current Medications Docusate Sodium (Colace) 100 mg PO TID [facility] Last Admin: 02/11/19 17:56 Dose: 100 mg Glipizide (Glucotrol) 10 mg PO ACB [facility] Last Admin: 02/11/19 08:00 Dose: Not Given Hydrocortisone (Anusol-Hc) 0 gm AK BID [facility] Last Admin: 02/11/19 17:57 Dose: 1 applic Levothyroxine Sodium (Synthroid) 75 mcg PO ACB [facility] Last Admin: 02/11/19 08:00 Dose: Not Given Lidocaine HCl (Xylocaine 2%) 1 ea TOP BID [facility] Metformin HCl (Glucophage) 1,000 mg PO BID [facility] Last Admin: 02/11/19 17:56 Dose: 1,000 mg Rosuvastatin Calcium (Crestor) 5 mg PO HS [facility] Last Admin: 02/11/19 21:21 Dose: 5 mg Sitagliptin Phosphate (Januvia) 50 mg PO BID [facility] Last Admin: 02/11/19 17:56 Dose: 50 mg - Labs Labs: 02/10/19 12:22 02/10/19 12:22 PT 11.6 SECONDS (9.7-12.2) 02/10/19 12:22 INR 1.1 02/10/19 12:22 APTT 35.0 SECONDS (21-34) H 02/10/19 12:22 Attending/Attestation - Attestation I have personally seen and examined this patient.: Yes I have fully participated in the care of the patient.: Yes I have reviewed all pertinent clinical information, including history, physical exam and plan: Yes Notes (Text): 02/12/19 08:39 I have seen and examined patient with GI fellow. No acute events overnight, he reports ongoing rectal discomfort and one episode of bleeding yesterday evening following bowel movement. He otherwise denies abdominal pain, nausea, vomiting, fever/chills. Tolerating PO diet without difficulty. Constipation Rectal bleeding - internal hemorrhoids, anal fissure History of TBI - Diet as tolerated - Continue with stool softner therapy - Continue with anusol and topical lidocaine to rectal area twice daily - Daily sitz bath - As per nursing staff patient scheduled for surgical intervention today, however there is no surgical note documenting this. Follow up surgical rec ommendations. - No further planned GI intervention at this time, will sign off case. Patient will need outpatient GI follow up after hospital discharge. Will sign off case, please reconsult as necessary, thank you.
[2019-02-12] MEDS: Levothyroxine 75 MCG TAB PO SCH (08:30)
[2019-02-12] MEDS: Hydrocortisone 2.5% Rectal Cream(30 gm) PR SCH ×2 (09:46→17:03)
[2019-02-12] MEDS: Lidocaine 2% Jelly (30 ml) TOP SCH ×2 (10:04→17:04)
--- NOTE | 2019-02-12 10:33 | CP.PCM.PN ---
Subjective - Date & Time of Evaluation Date of Evaluation: 02/12/19 - Subjective Subjective: patient examined today no nauea no vomiting no diarrhea no dizziness no shortness of breath no fever Objective - Vital Signs/Intake and Output Vital Signs (last 24 hours): Temp Pulse Resp BP Pulse Ox 98.1 F 85 20 106/64 97 02/12/19 07:00 02/12/19 07:00 02/12/19 07:00 02/12/19 07:00 02/12/19 07:00 Intake and Output: 02/12/19 02/12/19 06:59 18:59 Output Total 700 Balance -700 - Medications Medications: Current Medications Docusate Sodium (Colace) 100 mg PO TID [facility] Last Admin: 02/12/19 09:18 Dose: Not Given Glipizide (Glucotrol) 10 mg PO ACB [facility] Last Admin: 02/12/19 08:30 Dose: Not Given Hydrocortisone (Anusol-Hc) 0 gm [place] BID [facility] Last Admin: 02/12/19 09:46 Dose: Not Given Levothyroxine Sodium (Synthroid) 75 mcg PO ACB [facility] Last Admin: 02/12/19 08:30 Dose: Not Given Lidocaine HCl (Xylocaine 2%) 1 ea TOP BID [facility] Last Admin: 02/12/19 10:04 Dose: Not Given Metformin HCl (Glucophage) 1,000 mg PO BID [facility] Last Admin: 02/12/19 09:18 Dose: Not Given Rosuvastatin Calcium (Crestor) 5 mg PO HS [facility] Last Admin: 02/11/19 21:21 Dose: 5 mg Sitagliptin Phosphate (Januvia) 50 mg PO BID [facility] Last Admin: 02/12/19 09:18 Dose: Not Given - Labs Labs: 02/10/19 12:22 02/10/19 12:22 PT 11.6 SECONDS (9.7-12.2) 02/10/19 12:22 INR 1.1 02/10/19 12:22 APTT 35.0 SECONDS (21-34) H 02/10/19 12:22 - Constitutional Appears: Well - Head Exam Head Exam: ATRAUMATIC, NORMAL INSPECTION, NORMOCEPHALIC - Eye Exam Eye Exam: EOMI, Normal appearance, PERRL Pupil Exam: NORMAL ACCOMODATION, PERRL - ENT Exam ENT Exam: Mucous Membranes Moist, Normal Exam - Neck Exam Neck Exam: Full ROM, Normal Inspection. absent: Lymphadenopathy - Respiratory Exam Respiratory Exam: Decreased Breath Sounds - Cardiovascular Exam Cardiovascular Exam: REGULAR RHYTHM, +S1, +S2 - GI/Abdominal Exam GI & Abdominal Exam: Soft, Diminished Bowel Sounds - Rectal Exam Rectal Exam: Deferred - Neurological Exam Neurological Exam: Oriented x3 Assessment and Plan - Assessment and Plan (Free Text) Plan: medications reviewed anusol-hc colace crestor flomax gluophage glucotrol hydrocil instant januvia morphine percocet synthroid xylocaine labs reviewed vitals reviewed plan discussed with patient moderate complexity of care
[2019-02-12] MEDS ORDERED: Bupivacaine 0.25% 20 ML INJ IJ ONE ×2 (15:26→16:31)
[2019-02-12] MEDS ORDERED: ceFAZolin 1 gm in NS 0 GM/0 ML BAG IVPB ONE (15:26)
[2019-02-12] MEDS ORDERED: Absorbable Gelatin Sponge Size 12-7 ONE (15:26)
[2019-02-12] MEDS ORDERED: Midazolam 2 MG/2 ML VIAL ONE (15:34)
[2019-02-12] MEDS ORDERED: Succinylcholine Chloride 20 mg/ml Syr (5 ml) IV ONE ×2 (15:35→16:06)
[2019-02-12] MEDS ORDERED: Lidocaine Hydrochloride 5 ML INJ ONE (15:35)
[2019-02-12] MEDS ORDERED: Propofol 10 mg/ml Inj (20 ML) ONE (15:35)
[2019-02-12] MEDS ORDERED: Dextrose 50% SYRINGE Inj (50 ml) ONE (15:50)
[2019-02-12] MEDS ORDERED: metroNIDAZOLE IV 500 mg/100 ml 500 MG/100 ML BAG ONE (15:53)
[2019-02-12] MEDS ORDERED: Rocuronium 10 mg/ml (5 ml) ONE (16:06)
[2019-02-12] MEDS ORDERED: Neostigmine 1:1000 (1 mg/ml) Inj ONE (16:23)
[2019-02-12] MEDS ORDERED: Morphine 4 MG/ML VIAL IVP PRN (17:12)
[2019-02-12] MEDS: HYDROmorphone 0.5 mg/0.5 ml ISec IVP PRN ×3 (17:17→17:47)
[2019-02-12] MEDS: Psyllium Packet PO SCH (18:59)
[2019-02-12] MEDS: Oxycodone/Acetaminophen 5/325 mg Tab PO PRN (19:02)
[2019-02-12 19:26] VITALS: RESP 20
[2019-02-13] MEDS: Oxycodone/Acetaminophen 5/325 mg Tab PO PRN (03:20)
--- NOTE | 2019-02-13 06:27 | OP ---
PROCEDURE DATE: 02/12/2019 PREOPERATIVE DIAGNOSIS: Grade IV hemorrhoids with rectal bleeding. POSTOPERATIVE DIAGNOSIS: Grade 4 hemorrhoids with rectal bleeding and a small rectal polyp. PROCEDURES PERFORMED: 1. Proctosigmoidoscopy. 2. Two quadrant hemorrhoidectomy. 3. Transanal excision of rectal polyp. SURGEON: Misbah Pantoja MD ANESTHESIA: General. BLOOD LOSS: 30 mL. POSTOPERATIVE CONDITION: Stable. INDICATIONS FOR SURGERY: A 68-year-old male admitted with rectal bleeding and syncope, found to have hemorrhoids just the cause. He is taken to the OR now for hemorrhoidectomy prior to discharge. GROSS FINDINGS: The patient had large mixed internal grade IV hemorrhoids in the left lateral and right posterior quadrants. Both were removed. There was also a small rectal polyp anteriorly in the rectum just above dentate line which was also removed, transanal full thickness. DESCRIPTION OF THE PROCEDURE: The patient was taken to the operating room. General anesthesia was administered. He was placed in the prone-Jackknife position. The buttocks were taped open. A proctosigmoidoscopy was performed to 15 cm with the above findings. Next, the left lateral quadrant hemorrhoid bundle was grasped using a michael clamp and ligated at its space with a 2-0 Monocryl suture. A generous elliptical incision was made. It was completely dissected off of the underlying endoderm and removed. Bleeding was controlled using a Bovie. Larger blood vessels were repaired. Tissue flaps were raised and tension-free closure was performed using a running Monocryl suture. The above was repeated in the right posterior position. A small polyp was grasped in the anterior space/full-thickness, and the mucosa was reapproximated with heavy Monocryl. The patient tolerated the procedure well, returned to recovery room in stable condition. Misbah Pantoja MD
[2019-02-13] MEDS: Levothyroxine 75 MCG TAB PO SCH (06:34)
[2019-02-13] MEDS: Hydrocortisone 2.5% Rectal Cream(30 gm) PR SCH ×2 (09:29→19:40)
[2019-02-13] MEDS: Psyllium Packet PO SCH ×2 (09:32→19:41)
[2019-02-13] MEDS: Lidocaine 2% Jelly (30 ml) TOP SCH ×2 (09:33→19:42)
--- NOTE | 2019-02-13 20:33 | CP.PCM.PN ---
Subjective - Date & Time of Evaluation Date of Evaluation: 02/13/19 - Subjective Subjective: patient examined today no nauea no vomiting no diarrhea no dizziness no shortness of breath no fever Objective - Vital Signs/Intake and Output Vital Signs (last 24 hours): Temp Pulse Resp BP Pulse Ox 98.1 F 104 H 20 106/68 94 L 02/13/19 15:00 02/13/19 15:00 02/13/19 15:00 02/13/19 15:00 02/13/19 15:00 Intake and Output: 02/13/19 02/14/19 18:59 06:59 Intake Total 500 Output Total 1000 Balance -500 - Medications Medications: Current Medications Docusate Sodium (Colace) 100 mg PO BID [facility] Last Admin: 02/13/19 19:39 Dose: 100 mg Glipizide (Glucotrol) 10 mg PO ACB [facility] Last Admin: 02/13/19 09:27 Dose: 10 mg Hydrocortisone (Anusol-Hc) 0 gm [place] BID [facility] Last Admin: 02/13/19 19:40 Dose: 1 applic Levothyroxine Sodium (Synthroid) 75 mcg PO ACB [facility] [place] Last Admin: 02/13/19 06:34 Dose: 75 mcg Lidocaine HCl (Xylocaine 2%) 1 ea TOP BID [facility] [place] Last Admin: 02/13/19 19:42 Dose: Not Given Metformin HCl (Glucophage) 1,000 mg PO BID [facility] [place] Last Admin: 02/13/19 19:31 Dose: Not Given Morphine Sulfate (Morphine) 3 mg IVP Q4 PRN PRN Reason: pain 8-10 Last Admin: 02/12/19 22:43 Dose: 3 mg Oxycodone/Acetaminophen (Percocet 5/325 Mg Tab) 2 tab PO Q4H PRN PRN Reason: pain Stop: 02/15/19 17:12 Last Admin: 02/13/19 03:20 Dose: 2 tab Psyllium Hydrophilic Mucilloid (Hydrocil Instant) 1 pkt PO BID [facility] [place] Last Admin: 02/13/19 19:41 Dose: Not Given Rosuvastatin Calcium (Crestor) 5 mg PO HS [facility] [place] Last Admin: 02/12/19 21:58 Dose: 5 mg Sitagliptin Phosphate (Januvia) 50 mg PO DAILY [facility] Tamsulosin HCl (Flomax) 0.4 mg PO DAILY [facility] Last Admin: 02/13/19 19:41 Dose: 0.4 mg - Labs Labs: 02/10/19 12:22 02/10/19 12:22 PT 11.6 SECONDS (9.7-12.2) 02/10/19 12:22 INR 1.1 02/10/19 12:22 APTT 35.0 SECONDS (21-34) H 02/10/19 12:22 - Constitutional Appears: Well - Head Exam Head Exam: ATRAUMATIC, NORMAL INSPECTION, NORMOCEPHALIC - Eye Exam Eye Exam: EOMI, Normal appearance, PERRL Pupil Exam: NORMAL ACCOMODATION, PERRL - ENT Exam ENT Exam: Mucous Membranes Moist, Normal Exam - Neck Exam Neck Exam: Full ROM, Normal Inspection. absent: Lymphadenopathy - Respiratory Exam Respiratory Exam: Decreased Breath Sounds - Cardiovascular Exam Cardiovascular Exam: REGULAR RHYTHM, +S1, +S2 - GI/Abdominal Exam GI & Abdominal Exam: Soft, Diminished Bowel Sounds - Rectal Exam Rectal Exam: Deferred - Neurological Exam Neurological Exam: Oriented x3 Assessment and Plan - Assessment and Plan (Free Text) Plan: medications reviewed anusol-hc colace crestor flomax gluophage glucotrol hydrocil instant januvia morphine percocet synthroid xylocaine labs reviewed vitals reviewed plan discussed with patient moderate complexity of care
[2019-02-14] MEDS: Oxycodone/Acetaminophen 5/325 mg Tab PO PRN ×2 (00:22→09:10)
[2019-02-14] MEDS: Levothyroxine 75 MCG TAB PO SCH (07:31)
[2019-02-14 07:39] VITALS: BP 110/72; PULSE 103; TEMP 98.9
[2019-02-14] MEDS: Psyllium Packet PO SCH ×2 (09:55→09:59)
[2019-02-14] MEDS: Lidocaine 2% Jelly (30 ml) TOP SCH (10:00)
--- NOTE | 2019-02-14 10:23 | US ---
Urinary bladder ultrasound HISTORY: Urinary retention. COMPARISON: None available. FINDINGS: Limited evaluation of the urinary bladder as there is a Reyes catheter in place within the urinary bladder and the bladder is underdistended. Impression: Limited evaluation of the urinary bladder as there is a Reyes catheter in place within the urinary bladder and the bladder is underdistended.
[2019-02-14] MEDS: Hydrocortisone 2.5% Rectal Cream(30 gm) PR SCH (11:00)
--- NOTE | 2019-02-14 11:43 | CP.PCM.PN ---
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 Maurer consulted for urinary retention post surgery, recommends to continue caban and d/c home with caban to leg bag and f/u with his office in 1 week discharge plan discussed with patient, who understands and agrees with plan Objective - Vital Signs/Intake and Output Vital Signs (last 24 hours): Temp Pulse Resp BP Pulse Ox 98.9 F 103 H 20 110/72 92 L 02/14/19 07:20 02/14/19 07:20 02/14/19 07:20 02/14/19 07:20 02/14/19 07:30 Intake and Output: 02/14/19 02/14/19 06:59 18:59 Output Total 900 Balance -900 - Medications Medications: Current Medications Docusate Sodium (Colace) 100 mg PO BID [facility] Last Admin: 02/14/19 09:55 Dose: 100 mg Glipizide (Glucotrol) 10 mg PO ACB [facility] Last Admin: 02/14/19 07:32 Dose: 10 mg Hydrocortisone (Anusol-Hc) 0 gm [place] BID [facility] Last Admin: 02/13/19 19:40 Dose: 1 applic Levothyroxine Sodium (Synthroid) 75 mcg PO B [facility] Last Admin: 02/14/19 07:31 Dose: 75 mcg Lidocaine HCl (Xylocaine 2%) 1 ea TOP BID [facility] Last Admin: 02/14/19 10:00 Dose: Not Given Metformin HCl (Glucophage) 1,000 mg PO BID [facility] Last Admin: 02/14/19 09:55 Dose: 1,000 mg Morphine Sulfate (Morphine) 3 mg IVP Q4 PRN PRN Reason: pain 8-10 Last Admin: 02/12/19 22:43 Dose: 3 mg Oxycodone/Acetaminophen (Percocet 5/325 Mg Tab) 2 tab PO Q4H PRN PRN Reason: pain Stop: 02/15/19 17:12 Last Admin: 02/14/19 09:10 Dose: 2 tab Psyllium Hydrophilic Mucilloid (Hydrocil Instant) 1 pkt PO BID [facility] Last Admin: 02/14/19 09:59 Dose: Not Given Rosuvastatin Calcium (Crestor) 5 mg PO HS [facility] Last Admin: 02/13/19 22:31 Dose: 5 mg Sitagliptin Phosphate (Januvia) 50 mg PO DAILY [facility] Last Admin: 02/14/19 09:55 Dose: 50 mg Tamsulosin HCl (Flomax) 0.4 mg PO DAILY [facility] Last Admin: 02/14/19 10:01 Dose: Not Given - Labs Labs: 02/10/19 12:22 02/10/19 12:22 PT 11.6 SECONDS (9.7-12.2) 02/10/19 12:22 INR 1.1 02/10/19 12:22 APTT 35.0 SECONDS (21-34) H 02/10/19 12:22 Assessment and Plan - Assessment and Plan (Free Text) Assessment: A/P 68 years old male presents to ED for complaints of rectal bleeding that began 10 days ago, associated generalized weakness and mild shaking. admitted with syncope, rectal bleeding with grade 4 external hemoroids s/p proctosigmoidoscopy , 2 quadrant hemarrodectomy ,transanal excision of rectal polyp pateitn developed urinary retention post surgery caban cath inserted voiding trail initiated after started flomax and caban d/c Patient un able to voids and urinary retention with above 600 and caban cath re inserted last zeeshanh t Dr. Maurer consulted for urinary retention post surgery, recommends to continue caban and d/c home with caban to leg bag and f/u with his office in 1 week discharge plan discussed with patient, who understands and agrees with plan rx given for flomax
[2019-02-14 12:34] VITALS: O2SAT 95
== END 2019-02-14 13:55 | disposition home or self-care (01) ==
LOC: C.ER 11:19 → C.9E 13:17 → C.6T 14:34
PROVIDERS: ADMIT Internal Medicine Nephrology; ATTEND Internal Medicine Nephrology
DX: K62.1 Rectal polyp (principal); K60.2 Anal fissure, unspecified; K64.3 Fourth degree hemorrhoids; K59.00 Constipation, unspecified; I10 Essential (primary) hypertension; E78.5 Hyperlipidemia, unspecified
CPT/HCPCS: 45320; 46255; 71045; 76856; 80053; 82948; 84484; 85025; 85610; 85730; 86850; 86860; 86870; 86900; 88304; 93005; 99285; G0378; J1170; J2250; J2270; J2704; J2710; J3010